=== PATIENT | male | born 1955 | race Caucasian/White ===

== ENCOUNTER → 2017-08-03 09:41 | Day surgery (SDC) | payer SELFPAY ==
[2017-08-01 14:36] VITALS: BP 122/78; BMI 34.4
--- NOTE | 2017-08-01 15:29 | RAD_ITS ---
STUDY: X-RAY CHEST REASON FOR EXAM: Male, 61 years old. Chest pain. TECHNIQUE: Single AP portable view of the chest. COMPARISON: None. FINDINGS: The lungs are clear and expanded. There is no demonstrated pleural abnormality. Normal size heart. Normal mediastinum and alessandra. Normal visualized pulmonary arteries. Normal visualized aortic arch and descending thoracic aorta. There are mild degenerative changes of the visualized thoracic spine. Normal visualized ribs, clavicles, and shoulders. There is no demonstrated abnormality of the visualized soft tissue structures of the upper abdomen. RAD/Chest PA and Lateral IMPRESSION: Normal x-ray examination of the chest. Electronically Signed: Delroy Pack MD at 12:53 EST Tel [phone], Service support ,
[2017-08-01 16:08] LABS: Hematocrit 40.2 % (40-54); Hemoglobin 12.7 g/dl (13.0-16.5); Mean Corp Hgb Conc 31.6 g/gl (32-36); Mean Corpuscular Hgb 26.4 pg (27.0-32.0); Mean Corpuscular Volume 83.6 fL (80-94); Mean Platelet Vol. 9.3 fl (6.2-12.0); Platelet Count 229 K/mm3 (150-450); RBC Distribution Width CV 15.1 % (11.6-14.6); RBC Distribution Width SD 46.4 fl (35.1-43.9); Red Blood Count 4.81 M/mm3 (4.6-6.2); White Blood Count 7.5 K/mm3 (4.4-11.0)
[2017-08-01 16:11] LABS: Scan Indicated on CBC? Y/N NO
[2017-08-01 16:16] LABS: International Normalized Ratio 1.1; Prothrombin Time (Protime)PT. 13.5 SECONDS (11.7-14.9)
[2017-08-01 16:35] LABS: BUN 25 mg/dL (7-18); BUN/Creat Ratio 23.1 RATIO (10-20); Calcium,Total 8.8 mg/dL (8.5-10.1); Chloride 107 mmol/L (98-107); Creatinine, Serum 1.08 mg/dL (0.70-1.30); EST Glomerular Filtration Rate 74 mL/min (>60); Est Glom Filt Rate - Afr Amer 90 mL/min (>60); Glucose 100 mg/dL (70-110); Potassium 4.2 mmol/L (3.5-5.1); Sodium Level 141 mmol/L (136-145)
[2017-08-01 16:36] LABS: Anion Gap 6 (5-15)
[2017-08-02 12:03] VITALS: BMI 34.4
--- NOTE | 2017-08-03 11:28 | CL.D_ITS ---
Patient Name: MANJULA VIERA Study Date: 08/03/2017 Performing: Nathanael Chavez MD Ht: 64.96 inches 165 cm : 1955 Wt: 207.23 lbs 94 kg Age: 61 Gender: male BSA: 2.01 PROCEDURE(S) PERFORMED [id number]-THJ/COR/LV CLINICAL PROFILE AND INDICATIONS INDICATIONS: 61 man with chest pain Stress/Imaging Stress/Image Study Performed: No CAD Presentations: Stable angina. CONCLUSIONS moderateArtery disease involving the left circumflex artery and a previously stented vessel and a tot ally occluded right coronary artery with left to right collaterals. RECOMMENDATIONS Medical therapy DESCRIPTION OF PROCEDURE The patient arrived to the procedure lab. The risks and benefits of the procedure as well as a full d escription of our services here and current unavailability of surgical backup were fully explained to the patient and/or their significant other prior to the catheterization. The Timeout was completed, verifying the correct patient and procedure. The patient's procedural site was prepped and draped in the usual fashion. Local anesthetic was given subcutaneously to right groin region with Lidocaine 2%. Using a modified Seldinger technique, arterial access was obtained via the right femoral artery, a 5 Fr sheath was inserted. Left Coronary Artery selective angiography was performed in multiple views u sing a 5 Fr. JL4 catheter. Right Coronary Artery selective angiography was then performed in multiple views using a 5 Fr. 3DRC (Celso) catheter. Left Ventriculography was performed in NASSAR projection using a 5 Fr. Pigtail catheter. LV to AO pullback pressures were then recorded.The arterial sheath wa s pulled and manual compression applied until hemostasis is achieved. CORONARY ANGIOGRAPHY DOMINANCE: Right Dominant LEFT HEART ASSESSMENT Left Ventricular Ejection Fraction: by LV Gram 55 % Inferior Basal Akinesis Normal Left Ventricular systolic function LEFT MAIN: Mild calcification LEFT ANTERIOR DECENDING ARTERY: Mild luminal irregularities less than 30% CIRCUMFLEX ARTERY: Mild luminal irregularities less than 30% DISTAL CIRC: Moderate luminal irregularities up to 50% OM 1: Proximal - Previously placed stent has an instent 30 % restenosis OM 2: Proximal - Previously placed stent has an instent 30 % restenosis RIGHT CORONARY ARTERY: is occluded COLLATERAL FLOW: Collateral flow from Left to Right COMPLICATIONS No Complications PROCEDURE MEDICATIONS Versed 1 mg IV Fentanyl 50 mcg IV Oxygen: 2 L/min via nasal cannula SUMMARY OF HEMODYNAMIC DATA Time AIR REST ECG 10:16:48 AO 146/67 (94) SA 11:05:25 LV 144/7, 17 11:13:22 LV 145/8, 18 11:13:28 LV 118/5, 16 11:14:39 LVp 129/5, 16 11:14:43 AOp 140/68 (94) 11:14:48 Signed By Nathanael Chavez MD On 08/03/2017 11:27:55 Nathanael Chavez MD
== END ==
PROVIDERS: Family Provider Family Medicine; PCP Family Medicine; Visit Provider Internal Medicine Cardiovascular Disease
DX: I25.118 Atherosclerotic heart disease of native coronary artery with other forms of angina pectoris (principal); I25.2 Old myocardial infarction; I44.1 Atrioventricular block, second degree; I10 Essential (primary) hypertension; E78.00 Pure hypercholesterolemia, unspecified; R06.09 Other forms of dyspnea; Z87.891 Personal history of nicotine dependence; Z98.61 Coronary angioplasty status; Z79.82 Long term (current) use of aspirin; Z79.899 Other long term (current) drug therapy; Z82.49 Family history of ischemic heart disease and other diseases of the circulatory system
CPT/HCPCS: 36415; 71046; 80048; 85027; 85610; 93458; 99152; J7040; Q9967; C1769

== ENCOUNTER 2018-11-21 13:30 | Emergency (ER) | payer OTHER, SELFPAY ==
[2018-11-20 08:41] VITALS: BMI 36.4
[2018-11-21 13:31] VITALS: BP 187/82; PULSE 69; RESP 16; TEMP 36.8; O2SAT 98; BMI 36.6
--- NOTE | 2018-11-21 14:24 | ED.DCSUM_ITS ---
- ER Visit Summary Date of Service: 11/21/18 Chief Complaint: [] Fall right forearm laceration History of Present Illness: The patient is a 63 M [] history of heart disease on Plavix indicates usual state of health inadvertently tripped and fell suffering right forearm laceration just prior to arrival. No head neck chest or abdominal pain no fever no cough no other complaints normal function of the upper extremity after the fall Physical Examination: [] Vital signs within normal range General, no distress resting comfortably HEENT is generally unremarkable The neck is supple no adenopathy Cardiovascular, regular rate and rhythm Lungs, clear bilateral Abdomen, soft nontender Extremities, there is a 2 part curvilinear laceration to the forearm proximally, total length of laceration about 7 cm there is no foreign body or debris appreciated, the elbow functions normal wrist hand function normal neurovascular function normal Neurologic, awake alert answering questions appropriately moving all 4 extremities Test Results: [] Emergency Department Course and Treatment: [] All the above x-rays obtained the laceration underwent sterile prep copious irrigation, standard closure Treatment Plan: [] Explained all of the above the patient the concept of poor healing infection the need to have sutures removed in 7 to 10 days and return for signs of infection he will be given [place] No. 7 tablets to use his rescue medicine if Tylenol is ineffective Disposition: [] Impression: [] 7 cm right forearm laceration This note was generated with [employer] dictation software. It may contain incorrect words, spelling, and punctuation that were not noted in review of the chart prior to signing ED Disposition - Plan for ED Patient: Referrals: Max Orozco [Primary Care Provider] -
[2018-11-21] MEDS: HYDROcodone Bitartrate/Apap 5/325 Tablet PO (14:33)
--- NOTE | 2018-11-21 14:40 | RAD_ITS ---
STUDY: X-RAY - RIGHT RADIUS AND ULNA REASON FOR EXAM: Male, 63 years old. Laceration following a fall. TECHNIQUE: 2 view(s) of the forearm. COMPARISON: None. FINDINGS: Soft tissue laceration overlying the proximal radius.. No radiopaque foreign body is seen. Normal visualized radius. Normal visualized ulna. RAD/Forearm 2 Views IMPRESSION: Soft tissue laceration. No radiopaque foreign body is seen. Electronically Signed: Delroy Pack, at 15:05 EDT , Service support ,
--- NOTE | 2018-11-21 15:49 | ED.DEP ---
ED Disposition - Plan for ED Patient: Instructions: ED Laceration All, ED Laceration Hand Prescriptions: Hydrocodone Bitart/Apap 5-325 [[place] 5MG-325MG] 1 tab PO Q6H PRN PRN 3 Days #10 tab PRN Reason: Pain Referrals: Max Orozco [Primary Care Provider] -
[2018-11-21 16:05] VITALS: BP 149/80; PULSE 94; RESP 49; O2SAT 96
--- NOTE | 2018-11-21 16:06 | ED.RN ---
REVIEWED D/C INSTRUCTIONS, FOLLOW UP CARE, PRESCRIPTION, AND S/S THAT WOULD WARRANT A RETURN TO THE ED WITH PT. PT VERBALIZED AN UNDERSTANDING AND DENIES FURTHER QUESTIONS FOR THIS RN. PT SKIN P/W/D, RESP EVEN AND UNLABORED, PT A&O X 3, NO DISTRESS NOTED. PT AMBULATED OUT OF ED, GAIT STEADY.
== END 2018-11-21 16:08 | disposition home or self-care (01) ==
LOC: ED 14:25
PROVIDERS: Emergency Provider Emergency Medicine; Family Provider Family Medicine; PCP Family Medicine
DX: S51.811A Laceration without foreign body of right forearm, initial encounter (principal); W01.0XXA Fall on same level from slipping, tripping and stumbling without subsequent striking against object, initial encounter; Y93.9 Activity, unspecified; Y92.9 Unspecified place or not applicable; I25.10 Atherosclerotic heart disease of native coronary artery without angina pectoris; I25.2 Old myocardial infarction; Z79.82 Long term (current) use of aspirin; Z79.02 Long term (current) use of antithrombotics/antiplatelets; Z79.899 Other long term (current) drug therapy
CPT/HCPCS: 12002; 73090; 99283; A4216

== ENCOUNTER 2019-05-03 23:51 | Observation (INO) | payer OTHER, SELFPAY ==
[2019-02-14 16:12] VITALS: BMI 36.6
[2019-05-03 23:52] VITALS: BP 155/72; PULSE 66; RESP 17; TEMP 37.2; O2SAT 96; BMI 35.2
--- NOTE | 2019-05-03 23:59 | RAD_ITS ---
STUDY: X-RAY CHEST REASON FOR EXAM: Male, 63 years old. Chest pain TECHNIQUE: Single frontal view of the chest. COMPARISON: August 01, 2017. FINDINGS: The lungs are clear and expanded. There is no demonstrated pleural abnormality. Normal size heart. Normal mediastinum and alessandra. Normal visualized pulmonary arteries. Normal visualized aortic arch and descending thoracic aorta. There are diffuse degenerative changes of the visualized thoracic spine. Normal visualized ribs, clavicles, and shoulders. There is no demonstrated abnormality of the visualized soft tissue structures of the upper abdomen. RAD/Chest 1 View (Portable) IMPRESSION: Degenerative changes, as described above. No demonstrated acute cardiopulmonary process. Electronically Signed: Wallace Blanca, at 0:36 EDT Tel , Service support ,
--- NOTE | 2019-05-03 23:59 | EKG12_ITS ---
Test Reason : CP Blood Pressure : / mmHG Vent. Rate : 060 BPM Atrial Rate : 312 BPM P-R Int : 000 ms QRS Dur : 100 ms QT Int : 440 ms P-R-T Axes : 059 026 044 degrees QTc Int : 440 ms SInus Rhythm Confirmed by CHARLES PLAZA, ELEUTERIO ([id number]), binding dyer SARAH RAO ([id number]) on 05/05/2019 9:58:12 AM Referred By: Jacques Hernandez Confirmed By:ELEUTERIO SOTO MD
[2019-05-04] VITALS (9 sets, daily range): BP systolic 129–146; BP diastolic 62–97; PULSE 50–64; RESP 16–20; TEMP 36.7–37.2; O2SAT 96–98; BMI 31.1
--- NOTE | 2019-05-04 00:01 | ED.VIS.CHEST ---
History of Present Illness Chief Complaint: Chest Pain Informant: Patient Onset: Hours - 2 Activity at onset: Rest Timing: Continuous Quality: Sharp - no tearing sensation; no radation Location: Substernal Current Severity: Mild Maximum Severity: Moderate Worsened By: Breathing. Not Worsened By: Movement of Arm, Movement of Torso Relieved By: NTG - x1, and 3 baby asa Associated Symptoms: Negative for: Nausea, Vomiting, Diaphoresis, Dyspnea, Cough, Fever, Lightheadedness, Acid Reflux, Palpitations Narrative: Patient has a history of cardiac stents with coronary disease. States his other heart attack felt different than this. No recent illnesses. Had a heart cath almost 1 year ago that showed no blockages in need of PCI. PE Risk Factors: Negative for: Recent Travel/Surgery, Recenet Immobilization, Prior DVT or PE, Cancer, OCP + Smoking + >/=35 - Past Medical History (1) Abnormal pulmonary function Status: Chronic (2) Arteriosclerotic heart disease (ASHD) Status: Chronic Comment: PTCA and stent of CFX, OM1, OM2 Aug 2008; PTCA of the RCA intracornary stent [address] [facility]: 11/2009; 08/2008; 03/2012, 08/2017 (3) Essential (primary) hypertension Status: Chronic (4) History of coronary artery stent placement Status: Chronic Comment: PTCA and stent of CFX, OM1, OM2 Aug 2008; PTCA of the RCA intracornary stent 1998 (5) Hyperlipidemia Status: Chronic Past Medical History - Allergies and Home Meds Allergies/Adverse Reactions: Allergies Alfknnk-Wrz-Mag Reductase Inhibitor Allergy (Verified 05/04/19 00:05) all statins except crestor caused itching Primary Care Physician: Max Orozco [Primary Care Provider] - Doctors: [facility]-cardiology Lives: With Family Smoking Status: Former smoker Drugs: None Review of Systems General: Denies: Chills, Fever, Sweats Eyes: Denies: Visual changes - bilaterally, Diplopia ENT: Denies: Rhinorrhea, Sore throat Cardiovascular: Reports: Chest pain. Denies: Palpitations Respiratory: Denies: Dyspnea, Cough, Dyspnea on exertion Gastrointestinal: Denies: Abdominal pain, Nausea, Vomiting, Diarrhea, Melena, Hematochezia Genitourinary: Denies: Dysuria, Hematuria, Frequency Musculoskeletal: Denies: Back pain, Swelling, Extremity Pain Skin: Denies: Rash, Wounds Neurological: Denies: Headache, Weakness, Numbness Physical Exam Vital Signs/Narrative: Vital Signs Temp Pulse Resp BP Pulse Ox 05/03/19 23:52 98.9 F 66 17 155/72 H 96 Inital Vital Signs reviewed: Yes General: Well nourished, Well developed, No Acute Distress Head: Normocephalic, Atraumatic Eyes: Perrl, EOMI ENT: Moist mucous membranes, No rhinorrhea Neck: Supple, Nontender, No JVD Cardiovascular: Regular rate, Regular rhythm, No murmurs, - - Equal bilateral 2+/4 radial pulses. Negative for: Tachycardia Respiratory: No distress, CTA bilaterally, Chest nontender Abdomen: Soft, Nontender, Nondistended, Normal bowel sounds Back: Nontender, Normal Inspection Extremities: Nontender, Edema - Trace bilateral shins, symmetric. Negative for: Calf Tenderness Skin: Normal color, No rash Neurological: Alert, Oriented x3, Cranial nerves II-XII grossly intact, Normal Strength, Normal Sensation Psychological: Normal affect, Normal Mood Diagnostic/Tx/Re-eval Impressions Chest X-Ray 05/03/19 23:59 IMPRESSION: Degenerative changes, as described above. No demonstrated acute cardiopulmonary process. Electronically Signed: Wallace Blanca, at 0:36 EDT Tel , Service support , 05/03/19 23:59 Chest 1 View (Portable) [RAD] Stat Laboratory Results 05/04/19 05/04/19 05/04/19 00:06 00:06 00:06 WBC 7.3 RBC 4.67 Hgb 12.6 L Hct 40.1 MCV 85.9 MCH 27.0 MCHC 31.4 L RDW Std Deviation 43.8 RDW Coeff of Dorene 14.1 Plt Count 247 MPV 8.3 Immature Gran % (Auto) 0.700 Neut % (Auto) 44.7 L Lymph % (Auto) 32.5 [place] % (Auto) 15.4 H Eos % (Auto) 6.1 H Baso % (Auto) 0.6 Absolute Neuts (auto) 3.3 Absolute Lymphs (auto) 2.36 Nucleated RBC % 0 D-Dimer Quant (PE/DVT) 0.61 H* Sodium 139 Potassium 3.3 L Chloride 106 Carbon Dioxide 27.0 Anion Gap 6 BUN 18 Creatinine 1.13 Estim Creat Clear Calc 58.96 Est GFR (MDRD) Af Amer 84 Est GFR (MDRD) Non-Af 70 BUN/Creatinine Ratio 15.9 Glucose 107 H Calcium 8.7 Troponin I < 0.015 - Rhythm Strip Rhythm Strip: Sinus Rhythm Rate: 60 Ectopy: None - EKG Initial EKG Interpretation: Sinus Rhythm, No Acute Injury Pattern, - - nml axis Treatment: NTG SL Repeat Eval: 07/11 TIERRA Risk: Age >/= 65, H/O CAD, ASA within 7 days Score: 3 - Medical Decision Making Enzymes returned negative, his EKG shows a sinus rhythm with no acute injury pattern. He feels continuously better with nitroglycerin. He is high risk. Plan is for inpatient observation for further risk stratification and work-up. Patient is comfortable with this plan and clinically and hemodynamically stable on reexamination. His d-dimer returned abnormal, but at 0.61 when corrected for age, is low enough to rule out pulmonary embolus without further work-up. Nitroglycerin paste was placed on his chest. ED Disposition - Plan for ED Patient: Disposition: Acute Care Hospital [facility] Diagnosis: Chest pain, unspecified, Arteriosclerotic heart disease (ASHD) Referrals: Max Orozco [Primary Care Provider] -
[2019-05-04] MEDS: Nitroglycerin SL (ED/IMG/CATH) 0.4 MG TABLET SUBLINGUAL (00:09)
[2019-05-04 00:26] LABS: Absolute Lymphocyte Count 2.36 X10^3/uL (0.83-4.51); Absolute Neutrophil Count 3.3 X10^3/uL (2.0-7.7); Basophil# 0.04 X10^3/uL; Basophil% 0.6 % (0-1); Eosinophil# 0.44 X10^3/uL; Eosinophils% 6.1 % (0-5); Hematocrit 40.1 % (40-54); Hemoglobin 12.6 g/dL (13.0-16.5); Lymphocyte # 2.36 X10^3/ul (4.0); Lymphocyte % 32.5 % (19-41); Mean Corp Hgb Conc 31.4 g/dL (32-36); Mean Corpuscular Volume 85.9 fL (80-94); Mean Platelet Vol. 8.3 fl (6.2-12.0); Monocyte# 1.12 X10^3/uL; Monocyte% 15.4 % (0-10); NRBC Flagged by Analyzer 0 % (0-5); Neutrophil # 3.25 X10^3/uL (2.7-7.7); Neutrophil % 44.7 % (47-70); Platelet Count 247 K/mm3 (150-450); RBC Distribution Width CV 14.1 % (11.6-14.6); RBC Distribution Width SD 43.8 fl (35.1-43.9); Red Blood Count 4.67 M/mm3 (4.6-6.2); White Blood Count 7.3 K/mm3 (4.4-11.0)
[2019-05-04 00:53] LABS: Anion Gap 6 (5-15); BUN 18 mg/dL (7-18); BUN/Creat Ratio 15.9 RATIO (10-20); Calcium,Total 8.7 mg/dL (8.5-10.1); Chloride 106 mmol/L (98-107); Creatinine, Serum 1.13 mg/dL (0.70-1.30); EST Glomerular Filtration Rate 70 mL/min (>60); Est Glom Filt Rate - Afr Amer 84 mL/min (>60); Estimated Creatinine Clearance 58.96 ml/min; Glucose 107 mg/dL (74-106); Potassium 3.3 mmol/L (3.5-5.1); Sodium Level 139 mmol/L (136-145)
[2019-05-04 01:10] LABS: D-Dimer Quantitative (DVT/PE) 0.61 FEU/ug/m (0.27-0.49)
--- NOTE | 2019-05-04 01:13 | ED.RN ---
TOOK D-DIMER OF 0.61. RN AND AWARE.
--- NOTE | 2019-05-04 01:33 | PCM.HP.STD ---
Problem List (1) Chest pain, unspecified Status: Acute (2) Arteriosclerotic heart disease (ASHD) Status: Chronic Comment: PTCA and stent of CFX, OM1, OM2 Aug 2008; PTCA of the RCA intracornary stent 1998 [facility]: 11/2009; 08/2008; 03/2012, 08/2017 (3) Abnormal pulmonary function Status: Chronic (4) Essential (primary) hypertension Status: Chronic (5) History of left heart catheterization Status: Chronic Comment: [facility]: 11/2009; 08/2008; 03/2012 (6) History of coronary artery stent placement Status: Chronic Comment: PTCA and stent of CFX, OM1, OM2 Aug 2008; PTCA of the RCA intracornary stent 1998 (7) Hyperlipidemia Status: Chronic Qualifiers: Hyperlipidemia type: pure hypercholesterolemia Qualified Code(s): E78.00 - Pure hypercholesterolemia, unspecified; E78.0 - Pure hypercholesterolemia (8) History of non-ST elevation myocardial infarction (NSTEMI) Status: Chronic (9) Atherosclerotic heart disease of [place] coronary artery with other forms of angina pectoris Status: Chronic Comment: PTCA and stent of CFX, OM1, OM2 Aug 2008; PTCA of the RCA intracornary stent 1998 [facility]: 11/2009; 08/2008; 03/2012, 08/2017 History of Present Illness Date of Admission: 05/04/19 Chief Complaint: chest pain The patient is a 63 year old M with a significant history of hypertension; hyperlipidemia; and CAD status post stent placement in 1998 and also in 2008 who presented to the emergency department with substernal chest pain that radiated to his left chest. Unlike his previous heart attacks where his chest pain appeared to be heaviness/ach this time around he describes chest pain as sharp. He rated his chest pain as 2-3 on a scale of 1-10. His chest pain began gradually while he was a passenger in a vehicle. Lying down made the chest pain worse. He denied any ameliorating factors. He took 3 baby aspirin when his chest pain began. Also he took Plavix; had aerosol treatment and also took an nitroglycerin. He typically takes all his medicine as ordered. However on Saturdays and Sundays he does not take his medication. So on the day of presentation which was Sunday he had not taken his medication in the morning. However he took his medication later in the day when the chest pain began. At the emergency department he was given nitroglycerin sublingual. He reported that nitroglycerin only gave him a headache without any change in his chest pain. Later he refused nitroglycerin paste. At the time of evaluation his pain had reduced from 1 to none. However he did not attributes the improvement of the chest pain to the nitroglycerin. He denies any nausea; vomiting or diaphoresis. He reported that he had his first heart attack at age 42. His second heart attack was at age 52. And at age 54 HE had another heart attack. He reported for his first 2 heart attackS he had a stent placed. However for his third heart attack he does not remember what was done but but he was hospitalized for couple of days. He will think that he has a total of 4 coronary stents. He reports an unremarkable cardiac cath a year ago. Past Medical History Past Medical History (Chronic Problems): Chronic Problems (Last Reviewed 05/04/19 @ 03:31 by Jacques Hernandez MD) Arteriosclerotic heart disease (ASHD) (Chronic) PTCA and stent of CFX, OM1, OM2 Aug 2008; PTCA of the RCA intracornary stent 1998 [facility]: 11/2009; 08/2008; 03/2012, 08/2017 Abnormal pulmonary function (Chronic) Essential (primary) hypertension (Chronic) History of left heart catheterization (Chronic 08/2017) [facility]: 11/2009; 08/2008; 03/2012 History of coronary artery stent placement (Chronic) PTCA and stent of CFX, OM1, OM2 Aug 2008; PTCA of the RCA intracornary stent 1998 Hyperlipidemia (Chronic) History of non-ST elevation myocardial infarction (NSTEMI) (Chronic) Atherosclerotic heart disease of [place] coronary artery with other forms of angina pectoris (Chronic) PTCA and stent of CFX, OM1, OM2 Aug 2008; PTCA of the RCA intracornary stent 1998 [facility]: 11/2009; 08/2008; 03/2012, 08/2017 Medical History: Medical History (Last Reviewed 05/04/19 @ 03:31 by Jacques Hernandez MD) Arteriosclerotic heart disease (ASHD) (Chronic) I25.10 PTCA and stent of CFX, OM1, OM2 Aug 2008; PTCA of the RCA intracornary stent 1998 [facility]: 11/2009; 08/2008; 03/2012, 08/2017 Essential (primary) hypertension (Chronic) I10 Old non-ST elevation myocardial infarction (NSTEMI) (Resolved) I25.2 Hyperlipidemia (Chronic) E78.5 Atrioventricular block, Mobitz type 1, Wenckebach (Inactive) I44.1 History of non-ST elevation myocardial infarction (NSTEMI) (Chronic) I25.2 Atherosclerotic heart disease of [place] coronary artery with other forms of angina pectoris (Chronic) I25.118 PTCA and stent of CFX, OM1, OM2 Aug 2008; PTCA of the RCA intracornary stent 1998 [facility]: 11/2009; 08/2008; 03/2012, 08/2017 Lightheadedness R42 Shortness of breath R06.02 Allergies Uulmeem-Nfi-Xsj Reductase Inhibitor Allergy (Verified 05/04/19 00:05) all statins except crestor caused itching Home Medications: Ambulatory Orders Medication Instructions Recorded aspirin 81 mg tablet,delayed 81 mg PO QDAY 06/08/17 release nitroglycerin 0.4 mg sublingual 0.4 mg SUBLINGUAL Q5-15M PRN 06/08/17 tablet clopidogrel 75 mg tablet 75 mg PO QDAY #90 tab 08/23/18 rosuvastatin 20 mg tablet 20 mg PO QDAY #90 tab 08/23/18 albuterol sulfate 2.5 mg/3 mL 2.5 mg INHALATION Q4H PRN 11/20/18 (0.083 %) solution for nebulization Ranolazine [Ranexa] 1,000 mg PO BID 05/04/19 Surgical History: Surgical History (Last Reviewed 05/04/19 @ 03:31 by Jacques Hernandez MD) History of left heart catheterization (Chronic) Onset Date: 08/2017 Z98.890 [facility]: 11/2009; 08/2008; 03/2012 History of coronary artery stent placement (Chronic) Z95.5 PTCA and stent of CFX, OM1, OM2 Aug 2008; PTCA of the RCA intracornary stent 1998 History of appendectomy Z98.890, Z90.49 Lives: With Family Smoking Status: Former smoker Alcohol: Occasional Drugs: None Review of Systems Constitutional: Denies: Chills, Fever, Weight Change HEENT: Denies: Head Aches, Sinus Congestion, Sinus Drainage Cardiovascular: Reports: Chest Pain. Denies: Palpitations Respiratory: Denies: Cough, Shortness of breath at rest, Sputum production Gastrointestinal: Denies: Abdominal Pain, Nausea, Vomiting Genitourinary: Denies: Dysuria Musculoskeletal: Denies: Joint Pain, Joint Tenderness Skin: Denies: Rash, Wounds Neurological: Denies: Numbness, Tingling, Focal weakness Psychiatric: Denies: Anxiety, Depression, Homicidal Ideations, Suicidal Ideations Hematologic/ Lymphatic: Denies: Easy Bruising, Easy Bleeding VTE Information - Inpt Only VTE Present on Admission: No VTE Mechan Device Prophylaxis: None VTE Pharm Prophylaxis ordered?: Yes Patient Problems: Active and Suspected Problems (Last Reviewed 05/04/19 @ 03:31 by Jacques Hernandez MD) Chest pain, unspecified (Acute) - Physical Exam Vitals/I&O's: Vital Signs Temp Pulse Resp BP Pulse Ox 98.9 F 64 18 129/62 H 98 05/03/19 23:52 05/04/19 00:17 05/04/19 00:17 05/04/19 00:17 05/04/19 00:17 Oxygen Flow Rate (L/min) 2 Oxygen Delivery Method Nasal Cannula Weight: 96 kg Body Mass Index (BMI) 35.2 Intake and Output for Last 24 Hours 05/02/19 05/03/19 05/04/19 23:59 23:59 22:59 Intake Total 500 / 500 Balance 500 / 500 General: Alert, Oriented x3, Cooperative HEENT: Atraumatic, PERRLA, EOMI, Normocephalic Neck: Supple, No JVD, Negative Carotid Bruits Lungs: Clear to auscultation, Normal air movement Cardiovascular: Normal S1, Normal S2, No murmurs, Bradycardic Abdomen: Bowel Sounds Present, Soft, Non Tender Extremities: No edema, Capillary Refill Less than 3 Seconds Skin: No rashes, No breakdown Musculoskeletal: No Tenderness to Palpation of Joints or Extremities Neurological: Cranial nerves II-XII grossly intact Psych/Mental Status: Normal Affect, Appropriate Laboratory Results 05/04/19 00:06: WBC 7.3, RBC 4.67, Hgb 12.6 L, Hct 40.1, MCV 85.9, MCH 27.0, MCHC 31.4 L, RDW Std Deviation 43.8, RDW Coeff of Dorene 14.1, Plt Count 247, MPV 8.3, Immature Gran % (Auto) 0.700, Neut % (Auto) 44.7 L, Lymph % (Auto) 32.5, [place] % (Auto) 15.4 H, Eos % (Auto) 6.1 H, Baso % (Auto) 0.6, Absolute Neuts (auto) 3.3, Absolute Lymphs (auto) 2.36, Nucleated RBC % 0 05/04/19 00:06: Sodium 139, Potassium 3.3 L, Chloride 106, Carbon Dioxide 27.0, Anion Gap 6, BUN 18, Creatinine 1.13, Estim Creat Clear Calc 58.96, Est GFR (MDRD) Af Amer 84, Est GFR (MDRD) Non-Af 70, BUN/Creatinine Ratio 15.9, Glucose 107 H, Calcium 8.7, Troponin I < 0.015 05/04/19 00:06: D-Dimer Quant (PE/DVT) 0.61 H* Current Medications Nitroglycerin (Nitrostat) 0.4 mg SUBLINGUAL Q5M PRN PRN Reason: Chest pain Last Admin: 05/04/19 00:09 Dose: 0.4 mg Documented by: Assessment/Plan All Active Problems (Last Reviewed 05/04/19 @ 03:31 by Jacques Hernandez MD) Chest pain, unspecified (Acute) Old non-ST elevation myocardial infarction (NSTEMI) (Resolved) The patient is a 63 year old M with a significant history of hypertension; hyperlipidemia; and CAD status post stent placement in 1998 and also in 2008 who presented to the emergency department with substernal chest pain that radiated to his left chest. Chest pain Place on a monitored bed at PCU CXR independently reviewed confirms no acute cardiopulmonary process. EKG independently reviewed confirms sinus rhythm Patient took 3 baby aspirin before presentation to the emergency department. ASA 81 mg p.o. daily Morphine as needed for pain Ranexa and Plavix continued Discussed and recommended to patient that stress test can be on 05/05/2019 or he can be considered for a cardiac cath. However he reported that he had cardiac cath a year ago that was unremarkable. Also, he can not till 05/05/2029 for a stress test. He agrees to stay in the hospital for serial troponin. And if his serial cardiac enzymes is negative and if his chest pain resolves he wants to be discharged on 05/04/2019 and follow-up with his obstetrician/gynecologist Dr. Chavez, on outpatient basis. Serial cardiac enzymes ordered Stat EKG as needed for chest pain HTN Noted that patient has no blood pressure on his home med list. He has a history of [place] type I. Consider lisinopril or amlodipine.. Will trend blood pressure for now. Hyperlipidemia Rosuvastatin continued DVT prophylaxis Subcutaneous Lovenox ordered. Code Visit OBSV E&M: [id number] Initial observation care L3
--- NOTE | 2019-05-04 01:56 | EKG12_ITS ---
Test Reason : CP ADMISSION Blood Pressure : / mmHG Vent. Rate : 055 BPM Atrial Rate : 055 BPM P-R Int : 192 ms QRS Dur : 094 ms QT Int : 464 ms P-R-T Axes : 066 019 039 degrees QTc Int : 443 ms Sinus bradycardia Otherwise normal ECG Confirmed by CHARLES PLAZA, ELEUTERIO ([id number]), advertising editor SARAH RAO ([id number]) on 05/07/2019 11:19:41 AM Referred By: Jacques Hernandez Confirmed By:ELEUTERIO SOTO MD
[2019-05-04 03:13] LABS: Magnesium 2.1 mg/dL (1.6-2.6)
[2019-05-04] MEDS: Aspirin E.C. 81 MG Tablet PO (08:49)
[2019-05-04] MEDS: Enoxaparin 40 MG/0.4 ML Syringe SC (08:49)
[2019-05-04] MEDS: Clopidogrel Bisulfate 75 MG Tablet PO (08:50)
[2019-05-04] MEDS: Ranolazine 500 MG Tablet 1000 MG PO (08:50)
--- NOTE | 2019-05-04 10:13 | DCINST_ITS ---
- Discharge Diagnoses Current Active Problems: Current Active and Chronic Problems (Last Reviewed 05/04/19 @ 03:31 by Jacques Hernandez MD) Chest pain, unspecified (Acute) Arteriosclerotic heart disease (ASHD) (Chronic) PTCA and stent of CFX, OM1, OM2 Aug 2008; PTCA of the RCA intracornary stent 1998 [facility]: 11/2009; 08/2008; 03/2012, 08/2017 You will use the following diet at home:: Cardiac Your food should be the consistency of: Regular Your liquids should be the consistency of: Regular/Thin Discharge Activity: Return to Normal Activity Allergies/Adverse Reactions: Allergies Euiifgj-Rad-Uxh Reductase Inhibitor Allergy (Verified 05/04/19 00:05) all statins except crestor caused itching Medications to take at Discharge aspirin 81 mg tablet,delayed release 81 mg PO QDAY 06/08/17 nitroglycerin 0.4 mg sublingual tablet 0.4 mg SUBLINGUAL Q5-15M PRN 06/08/17 clopidogrel 75 mg tablet 75 mg PO QDAY #90 tab 08/23/18 rosuvastatin 20 mg tablet 20 mg PO QDAY #90 tab 08/23/18 albuterol sulfate 2.5 mg/3 mL (0.083 %) solution for nebulization 2.5 mg INHALATION Q4H PRN 11/20/18 Ranolazine [Ranexa] 1,000 mg PO BID 05/04/19 Primary Care Physician: Max Orozco [Primary Care Provider] - Please follow up with your Primary Care Physician in: 1-2 weeks Test Results: Test results from this visit will be discussed in further detail at your follow- up appointment, if applicable. Please Follow Up With: Nathanael Chavez MD When: 1-2 weeks Proposed Discharge Date: 05/04/19
--- NOTE | 2019-05-04 13:16 | PCM.DC.SUM ---
<Isaiah Choudhary - Last Filed: 05/04/19 13:16> Discharge Date and Diagnosis Date of Admission: 05/04/19 Date of Discharge: 05/04/19 - Primary Discharge Diagnosis Chest pain - musculoskeletal Hx CAD with prior stent HTN HLD obesity - Secondary Discharge Diagnosis Chronic Problems (Last Reviewed 05/04/19 @ 03:31 by Jacques Hernandez MD) Arteriosclerotic heart disease (ASHD) (Chronic) PTCA and stent of CFX, OM1, OM2 Aug 2008; PTCA of the RCA intracornary stent 1998 [facility]: 11/2009; 08/2008; 03/2012, 08/2017 Abnormal pulmonary function (Chronic) Essential (primary) hypertension (Chronic) History of left heart catheterization (Chronic 08/2017) C: 11/2009; 08/2008; 03/2012 History of coronary artery stent placement (Chronic) PTCA and stent of CFX, OM1, OM2 Aug 2008; PTCA of the RCA intracornary stent 1998 Hyperlipidemia (Chronic) History of non-ST elevation myocardial infarction (NSTEMI) (Chronic) 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: 11/2009; 08/2008; 03/2012, 08/2017 Hospital Course and Treatment Imaging Results: RAD/Chest 1 View (Portable) IMPRESSION: Degenerative changes, as described above. No demonstrated acute cardiopulmonary process. Operations: None Procedures: None Summary of Care Provided: Hospital course: The patient is a 63 year old M with pmhx of CAD with prior stent, HTN, HLD who presented to the ER with chest pain. This began suddenly when he was riding as a passenger. He described it as a midsternal sharp pain that radiated to the left side of the chest. He had no SOB, dizziness, LH, nausea, vomiting. He came to the ER and had negative troponin negative CXR and negative EKG. He did not want to stay until Sunday for a stress test. He was kept overnight on tele - no events on tele. He had negative trop x 3. He had no further chest pain the following day. He wanted discharge home. He was advised to return to the ER if he had any return of or change in his chest pain. He was also advised to contact his instruction dean and PCP regarding arranging for an outpatient stress test. He was discharged home in stable condition. He will need follow up with his PCP in 1-[address] Chavez in the office, ideally in the next 1-2 weeks. His pain was atypical and felt most likely to be musculeskeletal. This patient was seen by Isaiah Choudhary PA-C under the supervision of Doctor Elder. [] - Physical Exam Vitals/I&O's: Vital Signs Temp Pulse Resp BP Pulse Ox 98.0 F 55 L 16 129/68 H 96 05/04/19 08:21 05/04/19 08:21 05/04/19 08:21 05/04/19 08:21 05/04/19 08:21 Oxygen Flow Rate (L/min) 2 Oxygen Delivery Method Room Air Weight: 198 lb 10.184 oz Body Mass Index (BMI) 31.1 Intake and Output for Last 24 Hours 05/02/19 05/03/19 05/04/19 23:59 23:59 22:59 Intake Total 750 / 750 Balance 750 / 750 General: Alert, Oriented x3, Cooperative HEENT: Atraumatic, PERRLA, EOMI, Normocephalic Neck: Supple, No JVD, Negative Carotid Bruits Lungs: Clear to auscultation, Normal air movement Cardiovascular: Regular rate, Murmur - 2/6 systolic murmur @ LSB Abdomen: Bowel Sounds Present, Soft, Non Tender Extremities: No edema, Capillary Refill Less than 3 Seconds Skin: No rashes, No breakdown Musculoskeletal: No Tenderness to Palpation of Joints or Extremities Neurological: Cranial nerves II-XII grossly intact Psych/Mental Status: Normal Affect, Appropriate, Alert and oriented to time, place, person, mood and affect Laboratory Results 05/04/19 00:06: WBC 7.3, RBC 4.67, Hgb 12.6 L, Hct 40.1, MCV 85.9, MCH 27.0, MCHC 31.4 L, RDW Std Deviation 43.8, RDW Coeff of Dorene 14.1, Plt Count 247, MPV 8.3, Immature Gran % (Auto) 0.700, Neut % (Auto) 44.7 L, Lymph % (Auto) 32.5, Harper % (Auto) 15.4 H, Eos % (Auto) 6.1 H, Baso % (Auto) 0.6, Absolute Neuts (auto) 3.3, Absolute Lymphs (auto) 2.36, Nucleated RBC % 0 05/04/19 00:06: Sodium 139, Potassium 3.3 L, Chloride 106, Carbon Dioxide 27.0, Anion Gap 6, BUN 18, Creatinine 1.13, Estim Creat Clear Calc 58.96, Est GFR (MDRD) Af Amer 84, Est GFR (MDRD) Non-Af 70, BUN/Creatinine Ratio 15.9, Glucose 107 H, Calcium 8.7, Troponin I < 0.015 05/04/19 00:06: D-Dimer Quant (PE/DVT) 0.61 H* 05/04/19 00:06: Magnesium 2.1 05/04/19 03:43: Troponin I < 0.015 05/04/19 05:46: Troponin I < 0.015 Discharge Diet: Low fat/ Low Cholesterol, 2000 mg Sodium Diet Discharge Activity: Return to Normal Activity Home Medications: Medications to take at Discharge aspirin 81 mg tablet,delayed release 81 mg PO QDAY 06/08/17 nitroglycerin 0.4 mg sublingual tablet 0.4 mg SUBLINGUAL Q5-15M PRN 06/08/17 clopidogrel 75 mg tablet 75 mg PO QDAY #90 tab 08/23/18 rosuvastatin 20 mg tablet 20 mg PO QDAY #90 tab 08/23/18 albuterol sulfate 2.5 mg/3 mL (0.083 %) solution for nebulization 2.5 mg INHALATION Q4H PRN 11/20/18 Ranolazine [Ranexa] 1,000 mg PO BID 05/04/19 Primary Care Physician: Max Orozco [Primary Care Provider] - Please follow up with your Primary Care Physician in: 1-2 weeks Please Follow Up With: Nathanael Chavez MD When: 1-2 weeks Disposition: Home Minutes spent on discharge:: 35 Patient Condition:: Stable Medical Necessity - Tobacco Use Smoking Status: Former smoker Meaningful Use Info Meaningful Use Diagnoses (Choose all that apply): None applicable <Nik Friedman - Last Filed: 05/04/19 13:31> Discharge Date and Diagnosis - Secondary Discharge Diagnosis Chronic Problems (Last Reviewed 05/04/19 @ 03:31 by Jacques Hernandez MD) Arteriosclerotic heart disease (ASHD) (Chronic) PTCA and stent of CFX, OM1, OM2 Aug 2008; PTCA of the RCA intracornary stent 1998 [facility]: 11/2009; 08/2008; 03/2012, 08/2017 Abnormal pulmonary function (Chronic) Essential (primary) hypertension (Chronic) History of left heart catheterization (Chronic 08/2017) 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: 11/2009; 08/2008; 03/2012, 08/2017 Hospital Course and Treatment Procedures: EKG Summary of Care Provided: Hospitalist note: Discharge summary above reviewed and I concur with the above discharge plan. Patient was admitted for chest pain for evaluation. He did have a history of CAD status post stents. His EKG showed no evidence of acute ischemic changes. Troponin was negative x3. His vital signs were stable. Routine blood work was unremarkable. D-dimer was 0.61 but it was normal for adjusted age. Chest x-ray showed no acute findings. Patient did not want to stay for stress test tomorrow morning. I explained to him in details that ideally we should do a nuclear stress test to rule out coronary artery disease. I informed the patient that because of his capacity of CAD and stents, he should get a stress test done. Patient wanted to be discharged home and he mentioned he would like a stress test done as outpatient. I explained to the patient that he must return back to the ED if he developed this chest pain again, started having any chest pain, shortness of breath, lightheaded or dizzy and he agreed to this approach. Patient was instructed to call his instruction dean office tomorrow to set up a nuclear stress test as outpatient. Patient discharged home in a stable medical condition, discharged on his previous home medications without any changes, plan to have the patient call his instruction dean office tomorrow to schedule a nuclear stress test as outpatient, recommended to follow-up with PCP in 1 to 2 weeks and follow-up with cardiology in 2 weeks. - Physical Exam General: Alert, Oriented x3, Cooperative, No apparent distress. HEENT: Atraumatic, PERRLA, EOMI. Neck: Supple, No JVD, Negative Carotid Bruits, Trachea Midline, Thyroid Normal. Lungs: Clear to auscultation, Normal air movement, No rhonchi, No wheeze, No rales. Cardiovascular: Regular rate, Regular Rhythm, Normal S1, Normal S2, PMI Normal. Abdomen: Bowel Sounds Present, Soft, Non Tender, Non-Distended, No Hepato-splenomegaly. Extremities: No clubbing, No cyanosis, No edema Skin: No rashes, No breakdown Neurological: Cranial nerves are intact, neuro grossly intact Vital Signs are stable. This note was generated with Dialog[employer] dictation software. It may contain incorrect words, spelling, and punctuation that were not noted in checking the note before signing. - Physical Exam Vitals/I&O's: Vital Signs Temp Pulse Resp BP Pulse Ox 98.0 F 55 L 16 129/68 H 96 05/04/19 08:21 05/04/19 08:21 05/04/19 08:21 05/04/19 08:21 05/04/19 08:21 Oxygen Flow Rate (L/min) 2 Oxygen Delivery Method Room Air Weight: 198 lb 10.184 oz Body Mass Index (BMI) 31.1 Intake and Output for Last 24 Hours 05/02/19 05/03/19 05/04/19 23:59 23:59 22:59 Intake Total 750 / 750 Balance 750 / 750 Laboratory Results 05/04/19 00:06: WBC 7.3, RBC 4.67, Hgb 12.6 L, Hct 40.1, MCV 85.9, MCH 27.0, MCHC 31.4 L, RDW Std Deviation 43.8, RDW Coeff of Dorene 14.1, Plt Count 247, MPV 8.3, Immature Gran % (Auto) 0.700, Neut % (Auto) 44.7 L, Lymph % (Auto) 32.5, Harper % (Auto) 15.4 H, Eos % (Auto) 6.1 H, Baso % (Auto) 0.6, Absolute Neuts (auto) 3.3, Absolute Lymphs (auto) 2.36, Nucleated RBC % 0 05/04/19 00:06: Sodium 139, Potassium 3.3 L, Chloride 106, Carbon Dioxide 27.0, Anion Gap 6, BUN 18, Creatinine 1.13, Estim Creat Clear Calc 58.96, Est GFR (MDRD) Af Amer 84, Est GFR (MDRD) Non-Af 70, BUN/Creatinine Ratio 15.9, Glucose 107 H, Calcium 8.7, Troponin I < 0.015 05/04/19 00:06: D-Dimer Quant (PE/DVT) 0.61 H* 05/04/19 00:06: Magnesium 2.1 05/04/19 03:43: Troponin I < 0.015 05/04/19 05:46: Troponin I < 0.015 Disposition: Home Minutes spent on discharge:: 26 Patient Condition:: Stable Meaningful Use Info Meaningful Use Diagnoses (Choose all that apply): None applicable Code Visit OBSV E&M: 06766 Observ/hosp same date L2
== END 2019-05-04 10:13 | disposition home or self-care (01) ==
LOC: ED 05-04 01:42 → PCU 05-04 02:40
PROVIDERS: Admitting Provider Hospitalist; Emergency Provider Emergency Medicine; Family Provider Family Medicine; PCP Family Medicine; Referring Provider Hospitalist; Visit Provider Hospitalist
DX: R07.89 Other chest pain (principal); I25.10 Atherosclerotic heart disease of native coronary artery without angina pectoris; I10 Essential (primary) hypertension; E78.5 Hyperlipidemia, unspecified; E66.9 Obesity, unspecified; Z68.31 Body mass index [BMI] 31.0-31.9, adult; Z71.3 Dietary counseling and surveillance; Z95.5 Presence of coronary angioplasty implant and graft; Z79.899 Other long term (current) drug therapy; Z79.02 Long term (current) use of antithrombotics/antiplatelets; Z79.82 Long term (current) use of aspirin; I25.2 Old myocardial infarction; Z87.891 Personal history of nicotine dependence
CPT/HCPCS: 36415; 71045; 80048; 83735; 84484; 85025; 85379; 93005; 96360; 96372; 99218; 99285; J7030; A4216; G0378

== ENCOUNTER → 2020-02-19 16:53 | Outpatient (CLI) | payer OTHER, SELFPAY ==
[2020-02-19 13:58] VITALS: BMI 35.7
[2020-02-19 17:56] LABS: AST(SGOT) 24 U/L (15-37); Alanine Aminotransfer ALT/SGPT 35 U/L (16-61); Albumin, Serum 3.8 g/dL (3.2-5.0); Alkaline Phosphatase 103 U/L (45-117); Bilirubin, Direct 0.28 mg/dL (0.00-0.30); Cholesterol 144 mg/dL (200); High Density Lipoprotein 66 mg/dL; Protein, Total 6.8 g/dL (6.4-8.2); Triglycerides 53 mg/dL; Very Low Density Lipoprotein 11 mg/dL (5-40)
== END ==
PROVIDERS: PCP Family Medicine; Referring Provider Internal Medicine Cardiovascular Disease; Visit Provider Internal Medicine Cardiovascular Disease
DX: E78.5 Hyperlipidemia, unspecified (principal); I10 Essential (primary) hypertension; I25.2 Old myocardial infarction
CPT/HCPCS: 36415; 80061; 80076

== ENCOUNTER → 2023-09-14 | Outpatient (CLI) | payer BC, SELFPAY ==
[2023-09-14 16:57] LABS: Absolute Lymphocyte Count 1.89 X10^3/uL (0.83-4.51); Absolute Neutrophil Count 4.8 X10^3/uL (2.0-7.7); Basophil# 0.07 X10^3/uL; Basophil% 0.9 % (0-1); Eosinophil# 0.39 X10^3/uL; Eosinophils% 4.9 % (0-5); Hematocrit 44.1 % (40-54); Hemoglobin 14.4 g/dL (13.0-16.5); Lymphocyte # 1.89 X10^3/ul (0.83-4.51); Lymphocyte % 23.5 % (19-41); Mean Corp Hgb Conc 32.7 g/dL (32-36); Mean Corpuscular Hgb 28.9 pg (27.0-32.0); Mean Corpuscular Volume 88.4 fL (80-94); Mean Platelet Vol. 9.4 fl (6.2-12.0); Monocyte# 0.88 X10^3/uL; NRBC Flagged by Analyzer 0 % (0-5); Neutrophil # 4.76 X10^3/uL (2.7-7.7); Neutrophil % 59.2 % (47-70); Platelet Count 237 K/mm3 (150-450); RBC Distribution Width CV 12.6 % (11.6-14.6); RBC Distribution Width SD 40.4 fl (35.1-43.9); Red Blood Count 4.99 M/mm3 (4.6-6.2)
[2023-09-14 17:15] LABS: Hemoglobin A1c 5.7 % (3.8-5.6)
[2023-09-14 17:16] LABS: Anion Gap 4 (5-15); BUN 21 mg/dL (7-18); Calcium,Total 8.9 mg/dL (8.5-10.1); Chloride 112 mmol/L (98-107); Creatinine, Serum 0.95 mg/dL (0.70-1.30); EST Glomerular Filtration Rate 84 mL/min (>60); Est Glom Filt Rate - Afr Amer 101 mL/min (>60); Glucose 92 mg/dL (74-106); Sodium Level 143 mmol/L (136-145)
[2023-09-14 17:20] LABS: BNP,B-Type NATRIURETIC PEPTIDE 40.5 pg/mL (0-100)
== END | disposition home or self-care (01) ==
LOC: LAB 16:05
PROVIDERS: Referring Provider Physician Assistant Medical; Visit Provider Physician Assistant Medical
DX: R06.09 Other forms of dyspnea (principal); I10 Essential (primary) hypertension; E78.5 Hyperlipidemia, unspecified; Z95.5 Presence of coronary angioplasty implant and graft
CPT/HCPCS: 36415; 80048; 83036; 83880; 85025

== ENCOUNTER → 2023-10-19 | Outpatient (CLI) | payer MEDICARE, SELFPAY ==
--- NOTE | 2023-10-19 13:43 | STE_ITS ---
Reason For Study: Dyspnea; CAD Stress Results Protocol: Mao Protocol Maximum Predicted HR: 154 bpm Target HR: 131 bpm % Maximum Predicted HR: 73 % DurationHeart Rate Stage (mm:ss) (bpm) BP Comment Baseline 59 148/82No Chest Pain Mao Protocol Stage I 3:00 75 158/72No Chest Pain Mao Protocol Stage II 3:00 88 164/74No Chest Pain; Mild Dypnea Mao Protocol Stage III 3:30 113 170/70No Chest Pain; Moderate Dyspnea Recovery 75 160/68No Chest Pain; No Dyspnea Stress Duration: 9:30 mm:ss Maximum Stress HR: 113 bpm METS: 10 Baseline Echocardiogram Findings Stress Echo Wall motion Data Resting WM Intermediate WM Stress WM Time Measurements MV dec time: 0.26 sec Doppler Measurements & Calculations MV E max davonte: 124.7 cm/sec Lat Peak E' Davonte: 14.6 cm/sec Med Peak E' Davonte: 7.1 cm/sec MV A max davonte: 106.7 cm/sec E/E' lat: 8.6 E/E' med: 17.6 MV E/A: 1.2 MV dec slope: 405.8 cm/sec2 TR max davonte: 216.4 cm/sec TR max P.7 mmHg ECHO/Stress Test Echo w/o Contrast Interpretation Summary Exercise stress echo. 67-year-old male with a history of chest pain. Resting EKG demonstrates sinus bradycardia with a rate of 54 bpm normal interva ls are noted resting blood pressure is 148/82 mmHg. The patient exercised according to the regular B ruce protocol for a total duration of 9 minutes and 30 seconds. The patient completed 30 seconds in to stage IV of the Mao protocol. At rest there were no ST or T wave changes noted suggest ischem ia and at peak exercise upsloping ST changes were noted we did not meet the criteria for ische earl. The peak blood pressure was 170/70 mmHg which was a good blood pressure response to exercise t he workload was 10.1 metabolic equivalents and the maximum heart rate was 113 bpm which was 73% of m ax impacted heart rate. Stress echocardiogram. The resting echocardiogram demonstrated ejection fractio n of 55%. No wall motion abnormalities were noted at rest. At peak exercise there was improvement in left ventricular ejection fraction to approximately 65% with no wall motion abnormalities presen t. No chest pain was noted. Conclusion: Exercise stress echo with no EKG or echocardiographic criteria for ischemia at a high workload. Ordering Physician: Cristine Tai Referring Physician: Cristine Tai Performed By: Sandy Munroe, JUAN, RVT
== END | disposition home or self-care (01) ==
LOC: CVS 13:43
PROVIDERS: Referring Provider Physician Assistant Medical; Visit Provider Physician Assistant Medical
DX: R06.09 Other forms of dyspnea (principal)
CPT/HCPCS: 93017; 93350

== ENCOUNTER → 2025-06-12 | Outpatient (CLI) | payer MEDICARE, SELFPAY ==
--- OUTSIDE RECORDS SUMMARY | 2025-06-12 16:21 | XMS RPT_ITS | CCD ---
Author Organization [facility] Inform ion Partnership [facility] Care Team Providers Care Terrazzo Polisher Name Role Phone Max Orozco Primary Care Provider Kuldip Abreu Unavailable [phone] Chastity Ozuna PA-C Unavailable Aylin PLAZA, Dr. Fisher Unavailable Max Orozco MD Unavailable Edgar OCHOAN, Sahara San Unavailable Unavailable Vicky Lemus MA Unavailable Unavailable Isatu Thurston PA-C Unavailable [phone] Alphonse Becerra PA-C Unavailable Caleb GOYAL, Shelbie Unavailable Unavailable Darien NASH, Cristine Unavailable Unavailable Cinthia HIGUERA, Isatu Espinal Unavailable Unavaila Selene Maldonado PA-C Unavailable Luke OCHOAN, Julia Unavailable Unavailab le Vess JAVA ARCHITECT, Neilee L Unavailable Unavailable Wengerd JAVA ARCHITECT, Sheila Unavailable Unavailabl e Unavailable Unavailable KARLA Ozuna Chastity Primary Care Provider KARLA Ozuna Chastity Referring Provider KARLA Talavera Attending Provider Unavailable Unavailable Vishnu Chastity Primary Care Unavailable Vishnu Chastity Referring Unavailable Cristine Tai Attending Unavailabl e Vishnu, Chastity Primary Care Unavailable Vishnu Chastity Referring Unavailable Miguel ZURITA, Ashley Attending Unavailable Miguel ZURITA, Ashley Attending Unavailable Ozuna, Chastity Primary Care Unavailable Vishnu Chastity Referring Unavailable [facility] Unavailable Bozena Mcfarlane LPN Unavailable UnavailDebby Kahn Unavailable Unavailable GEO VIERA Admitting Unavailable GEO VIERA Attending Unavailable GEO VIERA Primary Care Unavailable CHASTITY OZUNA PAC Consulting Unavailable PROVIDER, UNKNOWN Consulting Unavailable Allergies Allergy Classification Reported Allergen(s) Allergy Type Date of Onset Reaction(s) Facility (2 sources) Ixercbc-Fve-Mmp Reductase Inhibitor Allergy to substance 4 all statins except crestor caused itching [facility] (1 source) Jwmqvft-Pjw-Uqi Reductase Inhibitor Drug allergy (disorder) 5 [facility] Repository Medications Current Medications Medication Drug Class(es) Dates Sig (Normalized) Sig (Original) [id number] actuat albuterol 0.09 mg/actuat metered dose inhaler (20 sources) beta2-Adrenergic Agonist Start: 04-25-2024 take 2 puff(s) by inhalation every four to six hours as needed Ventolin HFA 90 mcg/actuation aerosol inhaler ; 2 (two) puff(s) every 4-6hrs prn for 0 days Quantity: 1 {Each} Refills: 5 Ordered: 25-Apr-2024 JYOTSNA Ellis Start: 25-Apr-2024 Comments: Mail order. Start: 08-14-2022 End: 04-25-2024 take 12 puff(s) by inhalation once daily as needed ProAir HFA 90 mcg/actuation aerosol inhaler ; 2 (two) puffs Every 4-6 hours as needed for 0 days Quantity: 1 {Each} Refills: 2 Ordered: 25-Apr-2024 JYOTSNA Ellis Start: 14-Aug-2022 End: 25-Apr-2024 Status: Discontinued Comments: Mail order. Medication taken as needed. Maximum 12 puffs/day Start: 03-15-2022 End: 08-14-2022 Albuterol Sulfate (2.5 MG/3M L) 0.083% Inhalation Nebulization Solution ; 1 Nebu Soln vial QID/PRN rescue for cough and wheeze for 0 days Quantity: 60 {Milliliter} Refills: 2 Ordered: 14-Aug-2022 DAVIDA Vicente Start: 15-Mar-2022 End: 14-Aug-2022 Status: Inactive Start: 02-24-2021 End: 09-14-2023 take 2.5 mg by inhalation every six hours Albuterol Sulfate Discontinued 2.5 MG INHALATION EVERY 6 HOURS March 30, 2023 1:48pm September 14, 2023 3:33pm Start: 02-19-2020 End: 09-14-2023 take 1 puff(s) by inhalation every six hours Albuterol Sulfate Discontinued 2 PUFF INHALATION EVERY 6 HOURS February 19, 2020 12:00am September 14, 2023 3:33pm Start: 2018 End: 02-19-2020 take 2.5 mg by inhalation every four hours Albuterol Sulfate Discontinued 2.5 MG INHALATION Q4H 2018 12:00am February 19, 2020 4:30pm Comment on above: Mail order. Medicati on taken as needed. Maximum 12 puffs/day Mail order. amLODIPine 5 mg oral tablet (20 sources) Dihydropyridine Calcium Channel Roselia Start: End: take 5 mg by mouth once daily Amlodipine Active 5 MG PO DAILY September 14, 2023 12:00am Start: 02-19-2020 End: 02-24-2021 take 5 mg by mouth once daily Amlodipine Discontinued 5 MG PO DAILY 60 February 19, 2020 12:00am February 24, 2021 4:19pm Start: 11-13-2018 End: 02-14-2019 take 5 mg by mouth once daily Amlodipine Discontinued 5 MG PO DAILY November 13, 2018 12:00am February 14, 2019 3:43pm Start: 08-03-2017 End: 05-10-2018 take 5 mg by mouth once daily Amlodipine Discontinued 5 MG PO daily August 03, 2017 1:00am May 10, 2018 4:18pm Start: 03-18-2012 End: 03-18-2012 take 1 tablet by mouth once daily in the evening amLODIPine (NORVASC) 5 mg tablet Take 1 tablet by mouth once daily. In the evening. 30 tablet 03/18/2012 Active Comment on above: Take 1 tablet by stephania th once daily. In the evening. aspirin 81 mg delayed release oral tablet (20 sources) Platelet Aggregation Inhibitor, Nonsteroidal Anti-inflammatory Drug Start: 06-08-2017 take 81 mg by mouth once daily Aspirin Active 81 MG PO daily June 08, 2017 1:00am take 1 tablet by mouth once zhao y ASPIRIN CHILDRENS, 81MG (Oral Tablet Chewable) ; 1 daily (81 MG) Aspirin 81 mg Ta b Take 81 mg by mouth. 0 Active Comment on above: Take 81 mg by mouth. [facility] hydroCHLOROthiazide 25 mg oral tablet (5 sources) Thiazide Diuretic Start: 2023 take 25 mg by mouth once daily Hydrochlorothiazide Active 25 MG PO DAILY September 14, 2023 12:00am sulfamethoxazole 800 mg / trimethoprim 160 mg oral tablet (20 sources) Dihydrofolate Reductase Inhibitor Antibacterial, Sulfonamide Antimicrobial Start: 2024 sulfamethoxazole 800 mg-trimethoprim 160 mg tablet ; 1 (one) tablet two times daily for 7 days Quantity: 14 {Tablet} Refills: 0 Ordered: 09-Feb-2025 SKYE Ozuna Start: 09-Feb-2025 Start: 02-19-2023 End: 02-26-2023 sulfamethoxazole 800 mg-trim ethoprim 160 mg tablet ; 1 (one) tablet two times daily for 7 days Quantity: 14 {Tablet} Refills: 0 Ordered: 19-Feb-2023 SKYE Ozuna Start: 19-Feb-2023 End: 26-Feb-2023 Status: Inactive Start: 09-27-2022 End: 10-04-2022 take 1 tablet by mouth twice daily Sulfamethoxazole-Trimethoprim 800-160 MG Oral Tablet ; 1 (one) Tablet twice a day for 7 days Quantity: 14 {Tablet} Refills: 0 Ordered: 27-Sep-2022 SKYE Becerra Start: 27-Sep-2022 End: 04-Oct-2022 Status: Inactive Start: 10-04-2016 End: 10-14-2016 take 1 tablet by mouth twice daily Bactrim DS 800-160 MG Oral Tablet ; 1 Tab two times daily for 10 days Quantity: 20 {Tablet} Refills: 0 Ordered: 04-Oct-2017 MD Max Orozco Start: 04-Oct-2016 End: 14-Oct-2016 Status: Inactive Completed/Discontinued Medications Medication Drug Class(es) Dates Sig (Normalized) Sig (Original) acetaminophen 325 mg / HYDROcodone bitartrate 5 mg oral tablet (2 sources) Opioid Agonist Start: 11-21-2018 End: 11-24-2018 take 1 tablet by mouth every six hours as needed Hydrocodone-Aceta minophen Discontinued 1 TABLET PO EVERY 6 HOURS NEEDED 10 3 November 21, 2018 12:00am November 24, 2018 12:07am amLODIPine 10 mg / atorvastatin 10 mg oral tablet (20 sources) Dihydropyridine Calcium Channel Roselia, HMG-CoA Reductase Inhibitor take 1 tablet by mouth once daily AMLODIPINE-ATORVA STATIN, 10-10MG (Oral Tablet) ; 1 daily (10-10 MG) Status: Inactive amoxicillin 875 mg / clavulanate 125 mg oral tablet (20 sources) Penicillin-class Antibacterial Start: 06-17-2024 End: 06-24-2024 amoxicillin 875 mg-potassium clavulanate 125 mg tablet ; 1 (one) tablet two times daily for 7 days Quantity: 14 {Tablet} Refills: 0 Ordered: 17-Jun-2024 SKYE Ozuna Start: 17-Jun-2024 End: 24-Jun-2024 Status: Inactive Start: 01-28-2013 End: 02-07-2013 take 1 tablet by mouth twice daily AUGMENTIN, 875-125MG (Oral Tablet) ; 1 Tablet BID for 10 days Quantity: 20 {Tablet} Refills: 0 Ordered: 28-Jan-2013 MD Max Orozco Start: 28-Jan-2013 End: 07-Feb-2013 Status: Inactive Azithromycin (20 sources) Macrolide Antimicrobial Start: 06-17-2024 End: 12-31-2024 Zithromax Z-Placido 250 mg tablet ; 2 (two) Tabs day one, then one daily for 4 days for 0 days Quantity: 1 {Packet} Refills: 0 Ordered: 31-Dec-2024 CHARITY Mcfarlane Start: 17-Jun-2024 End: 31-Dec-2024 Status: Inactive Start: 06-17-2024 End: 12-31-2024 Zithromax Z-Placido 250 mg table t ; 2 (two) Tabs day one, then one daily for 4 days for 0 days Quantity: 1 {Packet} Refills: 0 Ordered: 31-Dec-2024 Start: 17-Jun-2024 End: 31-Dec-2024 Status: Inactive Start: 06-17-2024 Zithromax Z-Pa k 250 mg tablet ; 2 (two) Tabs day one, then one daily for 4 days for 0 days Quantity: 1 {Packet} Refills: 0 Ordered: 17-Jun-2024 SKYE Ozuna Start: 17-Jun-2024 Start: 08-08-2018 End: 05-14-2020 Zithromax Z-Placido 250 MG Oral Tablet ; 2 (two) Tabs Tabs day one, then one daily for 4 days for 0 days Quantity: 1 {Package} Refills: 0 Ordered: 14-May-2020 DAVIDA Vicente Start: 08-Aug-2018 End: 14-May-2020 Status: Inactive Comments: RM Comment on above: RM benzonatate 200 mg oral capsule (8 sources) Non-narcotic Antitussive Start: 4 End: 5 benzonatate 200 mg capsule ; 1 (one) capsule three times daily, as needed for 0 days Quantity: 30 {Capsule} Refills: 0 Ordered: 31-Dec-2024 CHARITY Mcfarlane Start: 17-Jun-2024 End: 31-Dec-2024 Status: Inactive Comments: Medication taken as needed. Comment on above: Medication taken as needed. clopidogrel 75 mg oral tablet (20 sources) P2Y12 Platelet Inhibitor Start: 7 End: 4 take 1 tablet by mouth once daily Clopidogrel (Plavix) 75 mg tablet Discontinued 75 MG PO daily 90 November 23, 2022 5:13pm September 14, 2023 3:50pm Comment on above: Take 75 mg by mouth once daily. [facility] famciclovir 500 mg oral tablet (9 sources) Herpes Simplex Virus Nucleoside Analog DNA Polymerase Inhibitor Start: 4 End: 4 take 1 tablet by mouth every eight hours famciclovir 500 mg tablet ; 1 (one) Tablet Every 8 hours for 7 days Quantity: 21 {Tablet} Refills: 0 Ordered: 25-Apr-2024 SKYE Ozuna Start: 25-Apr-2024 End: 02-May-2024 Status: Inactive Famotidine (20 sources) Histamine-2 Receptor Antagonist Acid Gamb Cutter ; 1-2 daily Status: Inactive 60 actuat fluticasone propionate 0.113 mg/actuat / salmeterol xinafoate 0.014 mg/actuat dry powder inhaler (20 sources) Corticosteroid, beta2-Adrenergic Agonist Start: 2 End: 4 fluticasone 113 mcg-salmeteroL 14 mcg/actuation breath activated powdr ; 1 (one) Puff two times daily for 0 days Quantity: 3 {Each} Refills: 0 Ordered: 08-Feb-2024 JYOTSNA Lemus Start: 18-Apr-2022 End: 08-Feb-2024 Status: Inactive Comments: Mail order. Comment on above: Mail order. 24 hr isosorbide mononitrate 120 mg extended release oral tablet (20 sources) Nitrate Vasodilator Start: 9 End: 9 take 120 mg by mouth once daily Isosorbide Mononitrate Discontinued 120 MG PO DAILY November 13, 2018 12:00am February 14, 2019 3:43pm Start: 03-18-2012 End: 05-10-2018 take 120 mg by mouth once daily in the morning Isosorbide Mononitrate Discontinued 120 MG PO EVERY MORNING June 08, 2017 1:00am May 10, 2018 4:20pm take 1 tablet by stephania th twice daily ISOSORBIDE MONONITRATE CR, 60MG (Oral Tablet Extended Release 24 Hour) ; 1 bid (60 MG) Status: Inactive Comment on above: Take 1 tablet by stephania th once daily. In the morning. lidocaine hydrochloride 20 mg/ml mucous membrane topical solution (20 sources) Antiarrhythmic, Amide Local Anesthetic Start: 3 End: 3 Lidocaine Viscous 2 % mucosal solution ; 15 Milliliter Q 3 hours PRN pain for 0 days Quantity: 100 {Milliliter} Refills: 1 Ordered: 19-Feb-2023 DAVIDA Vicente Start: 27-Sep-2022 End: 19-Feb-2023 Status: Inactive lisinopril 5 mg oral tablet (20 sources) Angiotensin Converting Enzyme Inhibitor Start: 4 End: 4 take 5 mg by mouth once daily Lisinopril Discontinued 5 MG PO DAILY September 14, 2023 12:00am September 14, 2023 3:40pm Start: 08-14-2022 End: 02-28-2023 lisinopriL 20 mg tablet ; 1 (one) Tablet daily for 0 days Quantity: 90 {Tablet} Refills: 0 Ordered: 28-Feb-2023 JYOTSNA Ellis Start: 14-Aug-2022 End: 28-Feb-2023 Status: Inactive Comments: Mail order. take 1 tablet by stephania th once daily lisinopril 5 mg tablet Take 5 mg by mouth once daily. 0 Active Comment on above: Take 5 mg by mouth o nce daily. Mail order. methylPREDNISolone 4 mg oral tablet (20 sources) Corticosteroid Start: End: Medrol 4 MG Oral Tablet Therapy Pack ; 1 Tab as directed for 6 days Quantity: 1 {Dose_Pack} Refills: 0 Ordered: 08-Aug-2018 SKYE Thurston Start: 08-Aug-2018 End: 14-Aug-2018 Status: Inactive 24 hr metoprolol succinate 25 mg extended release oral tablet (20 sources) beta-Adrenergic Roselia Start: 018 End: take 2 tablets by mouth once daily Metoprolol Succinate (Toprol Xl) 25 mg tablet extended release 24 hr Discontinued 12.5 MG PO daily September 14, 2017 4:08pm May 10, 2018 4:21pm Start: 06-08-2017 End: 09-14-2017 take 1 tablet by mouth once daily Metoprolol Succinate (Toprol Xl) 25 mg tablet extended release 24 hr Discontinued 25 MG PO daily June 08, 2017 1:00am September 14, 2017 4:09pm take 1 tablet by stephania th every twenty-four hours TOPROL XL, 25MG (Oral Tablet Extended Release 24 Hour) ; 1 daily (25 MG) Status: Inactive Comment on above: Take 25 mg by mouth once daily. nitroglycerin 0.4 mg sublingual tablet (20 sources) Nitrate Vasodilator Start: 5 End: 3 Nitrostat 0.4 MG Sublingual Tablet Sublingual ; 1 (one) Tablet Tablet q 5min prn CP for 0 days Quantity: 25 {Tablet} Refills: 5 Ordered: 08-Aug-2018 CHARITY Mckeon Start: 25-Dec-2014 End: 08-Aug-2018 Status: Inactive predniSONE 20 mg oral tablet (9 sources) Start: 4 End: 4 predniSONE 20 mg tablet ; 1 (one) Tablet as directed for 0 days Quantity: 20 {Tablet} Refills: 0 Ordered: 17-Jun-2024 JYOTSNA Ellis Shelbie Start: 25-Apr-2024 End: 17-Jun-2024 Status: Inactive Comments: Take 3tabs qd for 3 days thenTake 2tabs qd for 3 days thenTake 1tab qd for 3 days thenTake 1/2tab qd for 4 days. Comment on above: Take 3tabs qd for 3 days thenTake 2tabs qd for 3 days thenTake 1tab qd for 3 days thenTake 1/2tab qd for 4 days. 12 hr ranolazine 1000 mg extended release oral tablet (20 sources) Anti-anginal Start: 9 End: 0 take 1000 mg by mouth twice daily Ranolazine Discontinued 1000 MG PO TWICE A DAY May 04, 2019 12:00am February 19, 2020 4:29pm Start: 11-21-2018 End: 02-14-2019 take 1 tablet by mouth every twelve hours Ranolazine Discontinued 75 MG PO Q12H November 21, 2018 2:01pm February 14, 2019 3:43pm do not break, crush, or chew tablet(s) Start: 08-03-2017 End: 11-21-2018 take 1 tablet by mouth every twelve hours Ranolazine (Ranexa) 1,000 mg tablet extended release 12 hr Discontinued 1000 MG PO Q12H September 13, 2017 11:53am November 21, 2018 2:01pm do not break, crush, or chew tablet(s) Start: 06-08-2017 End: 08-03-2017 take 1 tablet by mouth every twelve hours Ranolazine (Ranexa) 500 mg tablet extended release 12 hr Discontinued 500 MG PO Q12H June 08, 2017 1:00am August 03, 2017 12:24pm take 1 tablet by stephania th once daily Ranexa 500 MG Oral Tablet Extended Release 12 Hour ; 1 daily (500 MG) Status: Inactive rosuvastatin calcium 20 mg oral tablet (20 sources) HMG-CoA Reductase Inhibitor Start: 06-08-2017 End: 11-23-2022 take 1 tablet by mouth once daily Rosuvastatin (Crestor) 20 mg tablet Discontinued 20 MG PO daily 90 January 10, 2022 5:00pm November 23, 2022 5:13pm Comment on above: Take 20 mg by mouth once daily. [facility] Problems Active Problems Problem Classification Problem Date Documented Da te Episodic/Chronic Abdominal hernia (20 sources) Hiatal hernia; Translations: [Diaphragmatic hernia without obstruction or gangrene] 03-09-2023 Episodic Abdominal pain (20 sources) Abdominal pain, generalized 12-22-2011 Episodic Acute bronchitis (20 sources) Acute bronchitis; Translations: [Acute bronchitis, unspecified] 01-28-2013 Episodic Administrative/social admission (20 sources) Issue of repeat prescriptions 12-25-2014 Episodic Asthma (20 sources) Asthma; Translations: [Unspecified asthma, uncomplicated] 03-09-2023 Chronic Bacterial infection; unspecified site (20 sources) Methicillin resistant Staphylococcus aureus infection; Translations: [Methicillin resistant Staphylococcus aureus infection, unspecified site] 08-08-2018 Episodic Chronic obstructive pulmonary disease and bronchiectasis (20 sources) Bronchitis; Translations: [Bronchitis, not specified as acute or chronic] 02-19-2023 Episodic Conduction disorders (2 sources) Mobitz type I incomplete atrioventricular block; Translations: [Atrioventricular block, second degree] 02-19-2020 Chronic Coronary atherosclerosis and other heart disease (20 sources) Coronary atherosclerosis; Translations: [Atherosclerotic heart disease of [place] coronary artery without angina pectoris] Onset: 2 02-27-2012 Chronic Diseases of mouth; excluding dental (20 sources) Ulcer of mouth; Translations: [Other forms of stomatitis] 03-09-2023 Episodic Disorders of lipid metabolism (5 sources) Hyperlipidemia; Translations: [Hyperlipidemia, unspecified] Onset: 2 02-27-2012 Chronic Esophageal disorders (20 sources) Gastroesophageal reflux disease; Translations: [Gastro-esophageal reflux disease without esophagitis] 03-09-2023 Chronic Essential hypertension (20 sources) Hypertensive disorder; Translations: [Essential (primary) hypertension] Onset: 2 02-27-2012 Chronic Gastrointestinal hemorrhage (20 sources) Gastrointestinal hemorrhage; Translations: [Hemorrhage of anus and rectum] 08-08-2018 Episodic Malaise and fatigue (4 sources) Fatigue; Translations: [Other fatigue] 01-01-2025 Episodic Nonspecific chest pain (4 sources) Chest pain; Translations: [Chest pain, unspecified] 02-19-2020 Episodic Other aftercare (20 sources) Removal of sutures done; Translations: [Encounter for removal of sutures] 08-08-2018 Episodic Other aftercare (2 sources) Long-term current use of drug therapy; Translations: [Other franchise specialist (current) drug therapy] 05-10-2018 Episodic Other connective tissue disease (20 sources) Swelling of lower limb; Translations: [Other specified soft tissue disorders] 03-09-2023 Episodic Other gastrointestinal disorders (4 sources) Occult blood in stools; Translations: [Other fecal abnormalities] 01-01-2025 Episodic Other lower respiratory disease (20 sources) Cough; Translations: [Cough] 02-19-2023 Episodic Other lower respiratory disease (2 sources) Dyspnea on exertion; Translations: [Other forms of dyspnea] 09-14-2023 Episodic Other lower respiratory disease (2 sources) Dyspnea; Translations: [Shortness of breath] 02-19-2020 Episodic Other lower respiratory disease (2 sources) Other forms of dyspnea; Translations: [Other respiratory abnormalities] 09-14-2023 Episodic Other nutritional; endocrine; and metabolic disorders (20 sources) Morbid obesity; Translations: [Morbid (severe) obesity due to excess calories] 03-09-2023 Chronic Other nutritional; endocrine; and metabolic disorders (20 sources) Unintentional weight loss; Translations: [Abnormal weight loss] 08-08-2018 Episodic Other screening for suspected conditions (not mental disorders or infectious disease) (20 sources) Patient encounter status; Translations: [Encounter for screening for malignant neoplasm of colon] 08-14-2022 Episodic Other skin disorders (20 sources) Ingrowing nail of toe of right foot; Translations: [Ingrowing nail] 02-19-2023 Episodic Other skin disorders (2 sources) Cyst of skin; Translations: [Follicular cyst of the skin and subcutaneous tissue, unspecified] 02-09-2025 Episodic Pneumonia (except that caused by tuberculosis or sexually transmitted disease) (16 sources) Pneumonia; Translations: [Pneumonia, unspecified organism] 06-17-2024 Episodic Residual codes; unclassified (20 sources) Influenza vaccination declined; Translations: [Immunization not carried out because of patient refusal] 03-09-2023 Episodic Skin and subcutaneous tissue infections (20 sources) Cellulitis; Translations: [Cellulitis, unspecified] 03-09-2023 Episodic Spondylosis; intervertebral disc disorders; other back problems (20 sources) Low back pain; Translations: [Lumbago] 08-08-2018 Episodic Unclassified (12 sources) Transition into care - The patient is transitioning into care from a hospital and a summary of care was reviewed. 02-28-2023 Unclassified (12 sources) [ADDITIONAL REASON] Follow up from hospital stay - Name of Hospital: [facility]. Date of Admission: 02/21/23. Date of Discharge: 02/25/23. The patient was hospitalized for cellulitis. New medications include aspirin clopidogrel rosuvastatin augmentin . Patient did not have any consultations ordered while in the hospital. No post hospital therapies were ordered. Patient was discharged to home. Current Symptoms: left knee pain . Note for Follow up from hospital stay: Patient currently taking 10 days of Augmentin following IV antibiotics inpatient. Reports continued left knee pain (2-3/10 dull pain), but denies any fatigue, fever, or chills. 02-28-2023 Unclassified (20 sources) Follow up for multiple chronic conditions - The patient is here for follow-up of asthma, coronary artery disease and GERD. The patient always takes the prescribed medications. No side effects noted (does need refills today). The patient has an active lifestyle but no regular exercise program. The patient's out of office blood pressure checks occur frequently (been running high when BP checked - reports readings in the 160s/90s) and dietary compliance is fair often eating foods not normally recommended (states that he does not eat that much). The patient states that breathing effort is stable (He continues to feel short of breath after he eats. Sometimes days at work, he will not eat because of this. Denies chest pain. Reports some relief from OTC famotidine. Takes famotidine several times a day.), weight has increased (11lbs since last rtn 01/2022) and they do not have headaches. 08-14-2022 Unclassified (6 sources) Transition into care - The patient is transitioning into care from another physician (oncology social worker 01/2020) and a summary of care was reviewed. 05-14-2020 Unclassified (6 sources) [ADDITIONAL REASON] Follow up for chronic condition - The patient is here for follow-up of other condition(s) (Asthma). The patient always takes the prescribed medications. No side effects noted (would like 90 day prescription of albuterol with refills). The patient has an active lifestyle but no regular exercise program. The patient's out of office blood pressure checks occur rarely. The patient states that breathing effort is stable, there is no recent angina or dyspnea (states that his breathing is good currently but seems to get worse with the colder weather) and they do not have headaches. Note for Chronic condition follow-up: reviewed by [facility] 05-14-2020 Unclassified (20 sources) Cold Symptoms - Symptoms include productive cough, wheezing, fever, chills and general malaise, but do not include sneezing, nasal congestion, runny nose, ear pain, ear fullness, sore throat, headache or facial pain. The onset was sudden 7 day(s) ago. The symptoms occur constantly. The patient describes this as severe and unchanged. Current treatment includes non-prescription cold medication and home remedies. Risk factors do not include smoking. The patient has not been exposed to an individual with a cough or an individual with similar symptoms. Medical history includes asthma, but patient denies history of seasonal allergies, recurrent sinusitis or recurrent ear infections. Note for Upper respiratory infection: he has proair but has not been using it (statess it teran his lungs), had recent PFT's ordered per Scott but has not yet discussed the results with [facility]. 08-08-2018 Unclassified (14 sources) Follow up for chronic condition - The patient is here for follow-up of other condition(s) (Asthma). The patient always takes the prescribed medications. No side effects noted (would like 90 day prescription of albuterol with refills). The patient has an active lifestyle but no regular exercise program. The patient's out of office blood pressure checks occur rarely. The patient states that breathing effort is stable, there is no recent angina or dyspnea (states that his breathing is good currently but seems to get worse with the colder weather) and they do not have headaches. Note for Chronic condition follow-up: reviewed by [facility] 05-14-2020 Unclassified (14 sources) [ADDITIONAL REASON] Transition into care - The patient is transitioning into care from another physician (oncology social worker 01/2020) and a summary of care was reviewed. 05-14-2020 Unclassified (8 sources) Follow up from hospital stay - Name of Hospital: [facility]. Date of Admission: 02/21/23. Date of Discharge: 02/25/23. The patient was hospitalized for cellulitis. New medications include aspirin clopidogrel rosuvastatin augmentin . Patient did not have any consultations ordered while in the hospital. No post hospital therapies were ordered. Patient was discharged to home. Current Symptoms: left knee pain . Note for Follow up from hospital stay: Patient currently taking 10 days of Augmentin following IV antibiotics inpatient. Reports continued left knee pain (2-3/10 dull pain), but denies any fatigue, fever, or chills. 02-28-2023 Unclassified (8 sources) [ADDITIONAL REASON] Transition into care - The patient is transitioning into care from a hospital and a summary of care was reviewed. 02-28-2023 Unclassified (1 source) MCR Well Adult - In general the patient feels well with no complaints, has good energy level (Pt said yes and no) and is sleeping well. The patient has inadequate caloric intake and takes no supplemental vitamins & iron. The patient exercises none (active) and sleeps 4 hours per night. The patient denies having trouble with bathing, dressing/grooming, toileting, preparing meals and ambulating. The patient denies having trouble with grocery shopping, driving, use of telephone, housework, laundry, preparing/taking medications and finances. The patient has a Healthcare Power of Revenue Cycle Consultant and a Living Will. Note for [facility] Well Adult: 07.22 cologuard normal 02-08-2024 Viral infection (20 sources) Viral disease; Translations: [Viral infection, unspecified] 03-15-2022 Episodic Past or Other Problems Problem Classification Problem Date Documented Date Episodic/Chronic Coronary atherosclerosis and other heart disease (3 sources) Patient post percutaneous transluminal coronary angioplasty; Translations: [Coronary angioplasty status] Onset: 08-06-2008 02-27-2012 Episodic Other nutritional; endocrine; and metabolic disorders (1 source) Overweight; Translations: [Overweight] Onset: 02-27-2012 02-27-2012 Episodic Unclassified (20 sources) MCR Well Adult - In general the patient feels well with no complaints, has good energy level and is sleeping well. The patient has a balanced diet. The patient exercises 3 - 4 times per week and sleeps 5 hours per night. The patient denies having trouble with bathing, dressing/grooming, toileting, preparing meals and ambulating. The patient denies having trouble with grocery shopping, driving, use of telephone, housework, laundry, preparing/taking medications and finances. The patient does not have Healthcare Power of Revenue Cycle Consultant or Living Will. Note for MCR Well Adult: Up to date on colon cancer screening. 03-09-2023 Unclassified (20 sources) Fever - The onset of the fever has been sudden , and it has been occurring in a persistent pattern for days. The course has been increasing. The patient has had a temperature of up to 101 F. The fever is relieved by analgesics. There has been associated fatigue and leg pain, while there has been no chest pain, cough, dyspnea or lymphadenopathy. Note for Fever: Sunday night, he was having chills and felt feverish. He continued to have over the weekend. This morning at home his temp was 101F. He took Tylenol about 7:30am approximately. He is feeling fatigued and has joint pains. He did have a scab to his left knee on Sunday, then he noticed redness to the left lower anterior leg yesterday and the redness is spreading. The area is warm and is severe pain. The pain is like tearing sensation. 02-19-2023 Unclassified (20 sources) Cold Symptoms - Symptoms include ear fullness, dry cough, productive cough and facial pain, but do not include non-purulent sputum, purulent discharge, ear pain, sore throat, scratchy throat, hoarseness, wheezing, fever, chills, general malaise or headache. The onset was gradual 1 week(s) ago. The symptoms occur constantly. The patient describes this as moderate in severity and worsening. Current treatment includes cold & flu (NyQuil, Tylenol, ibuprofen; Topical OTC cream for mouth lesions). Risk factors do not include child in daycare or smoking. The patient has not been exposed to an individual with a cough, an individual with an upper respiratory infection, an individual with similar symptoms, an individual with strep or secondhand smoke. Patient denies history of seasonal allergies, recurrent sinusitis, recurrent strep pharyngitis, asthma, tonsillectomy or recurrent ear infections. Note for Upper respiratory infection: sores present on the upper and lower lips as well as within the nostrils; patient unable to eat solid foods and has been consuming a liquid diet; patient notes significant tenderness of his face and mouth. 09-27-2022 Unclassified (20 sources) ingrown toe nail - Right toe has been painful fo several week, pt has hx of ingrown toenails and has had them removed about 15 years ago. Pt had injury and lost the toenail and when it grew back it was painful. reviewed by [facility] 05-18-2022 Unclassified (9 sources) Transition into care - The patient is transitioning into care from an emergency room and a summary of care was reviewed. 03-15-2022 Unclassified (9 sources) [ADDITIONAL REASON] Follow up consultation - The patient is here to follow-up after Emergency Room/Urgent Care (Patient was seen in the ER for weakness and shortness of breath. COVID and influenza testing was negative. Was diagnosed with a viral illness and discharged home.) on : (03/14/2022 AM). Current symptoms include weakness and diarrhea, fatigue. Note for Consultation follow-up: Patient denies any fever, chest pain, or shortness of breath. He does have continued weakness, fatigue, and diarrhea, though he reports that he is feeling better overall today.Patient was given a prescription for an antibiotic, but he has not filled this. 03-15-2022 Unclassified (20 sources) MCR Well Adult - In general the patient feels well with minor complaints (works 55 hours a week. just shortness of breath after he eats and sometimes with exertion. Also feels bloated and something is pushing against his lungs. Has not been using his daily Advair inhaler because he ran out months ago. Last week he used his albuterol nebulizer a few times. He reports that his asthma has been stable for some time. He does have a history of a hiatal hernia.), has good energy level (im getting older and getting slower.) and is sleeping well. The patient has a balanced diet and takes no supplemental vitamins & iron. The patient exercises none (no planned exercise - finds exercise hard due to shortness of breath) and sleeps 4 (4-5 hours a night) hours per night. The patient denies having trouble with bathing, dressing/grooming, toileting, preparing meals and ambulating. 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 The patient does not have Healthcare Power of Revenue Cycle Consultant (pt unsure if he has or not) or Living Will. Note for MCR Well Adult: Is fasting today. Has an appt next week with Police Stenographer ([facility]).Patient states that after he eats will become very short of breath. His oncology social worker says that his heart is not the cause of this. Dr. Geo Viera did an upper scope about 4-5 years ago. Also, had a colonoscopy about 5 years ago (pt said the colonoscopy was to be repeated in 3 years but has not done, I do not have time to do things like that. No family history of colon cancer.Patient denies any chest pain or dizziness with this shortness of breath. 02-24-2022 Unclassified (20 sources) Cold Symptoms - Symptoms include hoarseness and dry cough, but do not include nasal congestion, runny nose, ear pain, sore throat, productive cough, wheezing, fever, chills, general malaise, headache or facial pain. The onset was gradual 4 day(s) ago. The symptoms occur constantly. The patient describes this as mild and unchanged. Current treatment includes non-prescription cold medication (nightquil) and NSAIDs (last dose was this am). Risk factors do not include smoking. The patient has not been exposed to an individual with a cough, an individual with an upper respiratory infection, an individual with similar symptoms, an individual with strep or secondhand smoke. Medical history includes asthma (pt uses nebulizer daily), but patient denies history of seasonal allergies, recurrent sinusitis, recurrent strep pharyngitis, tonsillectomy or recurrent ear infections. Note for Upper respiratory infection: SOB w exertionno chest pain - sees cardiology regularly it teran to take a deep breath inPatient would also like to talk today about shortness of breath and postprandial fullness that he has been having for many years. He was previously worked up with an EGD in 2011, which did not show any significant findings. Patient denies any trouble swallowing. Patient reports that his symptoms usually resolve with use of Tums. Reports that he sometimes has mild epigastric pain with this. 08-16-2021 Unclassified (20 sources) Leg Pain - The leg pain began suddenly and has been occurring for 1 week. The symptoms have been occurring in a persistent pattern. The symptoms are described as a burning sensation and are moderate in severity. There is involvement of the right lower extremity. There are no precipitating factors. The symptoms have been associated with calf swelling. Note for Leg pain: No recent travel or injuries. No family or personal hx of DVT 07-05-2020 Unclassified (20 sources) Recheck - Patient is here today for a 1 week recheck. Was last seen 08/08/2018 for cough. Chest xray done at that time that was negative. Started on Zpak and Medrol, albuterol treatments. Patient states that he is feeling better and his breathing has improved. Denies having chest pain, shortness of breath or wheezing. Continues to have a cough that is less productive that it was. States that he feels tired every day especially after working. He also had PFTs done by cardiology. 08-16-2018 Unclassified (20 sources) Staph infection - Was diagnosed with staph infection while in [place] a couple weeks ago. Continues with redness and pain. Is currently on Bactrim DS two tablets twice a day. It is improving. He had an abscess , had a drainage tube placed 3 times. 10-04-2016 Unclassified (20 sources) Suture Removal - Pt had Laser Spine Surgery on 04/19/15. He is here today to have sutures removed from lower back. There is 2 sutures that need to be removed. Incision healing well and no redness or draining noted. Is feeling well. Getting around very well. reviewed by [facility] 05-07-2015 Unclassified (4 sources) Rectal bleeding - The onset of the rectal bleeding has been gradual and has been occurring in an intermittent pattern for 2 weeks. The course has been recurrent. The bleeding is characterized as blood mixed in stools. The symptoms have been associated with easy bruising and use of aspirin (Takes 81mg nbaby aspirin 2 daily. He was also on Plavix 75 mg. He saw Police Stenographer Sunday night and he took him off the Plavix. He was to stay on the Apsirin however.), while the symptoms have not been associated with abdominal pain, change in bowel habits, hard stools, heartburn or painful bowel movements. The symptoms do not include pain or painful bowel movements. Previous diagnostic tests have included none (and pt does not hae hemorrhoids that he is aware of.). Note for Rectal bleeding: reviewed by [facility] 12-25-2014 Unclassified (4 sources) [ADDITIONAL REASON] F/U - Pt here today to f/u back pain and x-rays that were done. 12-25-2014 Unclassified (20 sources) Weight loss - The patient has been losing weight for 2 months (gradually.). The patient's appetite is decreased (doesnt have much of an appetite.). The patient's dietary intake is decreased. The patient has lost 1 pound (per day losing.). The weight loss has been associated with diarrhea (when he eats it goes straight through.), but it has not been associated with abdominal pain. Note for Weight loss: He weighed 234 a few months ago by his scales and now down to 206 by his scales. he had EGD 2 years ago for GERD sx. 12-02-2014 Unclassified (20 sources) Cold Symptoms - Symptoms include nasal congestion, hoarseness, dry cough, productive cough, fever (at times), chills, general malaise and facial pain. The onset was sudden 2 week(s) ago. The symptoms occur constantly. The patient describes this as moderate in severity and worsening. Current treatment includes non-prescription cold medication. Patient denies history of seasonal allergies or asthma. Note for Upper respiratory infection: reviewed by [facility] 01-28-2013 Unclassified (20 sources) Cold Symptoms - Symptoms include nasal congestion, dry cough and chills, but do not include sneezing, runny nose, ear pain, sore throat or headache. The onset was gradual 5 day(s) ago. The symptoms occur constantly. The patient describes this as moderate in severity and worsening. Current treatment includes non-prescription cold medication (coricidin HBP). The patient has not been exposed to an individual with similar symptoms. Medical history includes tonsillectomy, but patient denies history of seasonal allergies, recurrent sinusitis, recurrent strep pharyngitis, asthma or recurrent ear infections. Note for Upper respiratory infection: Some shortness of breath but may be related to heart condition. Per patient he was been in and out of [facility] for the past 2 months - has had 3 MIs. Recently had a stress test and angiogram. 04-05-2012 Unclassified (20 sources) Abdominal pain - The onset of the pain has been gradual and has been occurring in a persistent pattern for 6 weeks. The pain is described as a severe cramping (and pain- it varies.). The pain is located in the lower abdomen (all across.) and does not radiate. The symptoms are relieved by antacids. The symptoms have been associated with bloating, while the symptoms have not been associated with heartburn or nausea. Note for Abdominal pain: No previous testing. Pt has talked this over with his oncology social worker and with his heart problems -pt has 9 stints in and several heart attacs that this is normal.Pt feels bloated at all times. Whenever he eats he becomes sob and it is hard to breathe. This feeling gradually goes away. WIll take some tums and that helps a little. Eating will aggravate this but can happen any time. reviewed by [facility] 12-11-2011 Unclassified (16 sources) F/U - Pt here today to f/u back pain and x-rays that were done. 12-25-2014 Unclassified (16 sources) [ADDITIONAL REASON] Rectal bleeding - The onset of the rectal bleeding has been gradual and has been occurring in an intermittent pattern for 2 weeks. The course has been recurrent. The bleeding is characterized as blood mixed in stools. The symptoms have been associated with easy bruising and use of aspirin (Takes 81mg nbaby aspirin 2 daily. He was also on Plavix 75 mg. He saw Police Stenographer Sunday night and he took him off the Plavix. He was to stay on the Apsirin however.), while the symptoms have not been associated with abdominal pain, change in bowel habits, hard stools, heartburn or painful bowel movements. The symptoms do not include pain or painful bowel movements. Previous diagnostic tests have included none (and pt does not hae hemorrhoids that he is aware of.). Note for Rectal bleeding: reviewed by [facility] 12-25-2014 Unclassified (11 sources) Follow up consultation - The patient is here to follow-up after Emergency Room/Urgent Care (Patient was seen in the ER for weakness and shortness of breath. COVID and influenza testing was negative. Was diagnosed with a viral illness and discharged home.) on : (03/14/2022 AM). Current symptoms include weakness and diarrhea, fatigue. Note for Consultation follow-up: Patient denies any fever, chest pain, or shortness of breath. He does have continued weakness, fatigue, and diarrhea, though he reports that he is feeling better overall today.Patient was given a prescription for an antibiotic, but he has not filled this. 03-15-2022 Unclassified (11 sources) [ADDITIONAL REASON] Transition into care - The patient is transitioning into care from an emergency room and a summary of care was reviewed. 03-15-2022 Unclassified (1 source) [facility] Well Adult - Note for [facility] Well Adult: 03.08.22 cologuard normal 02-08-2024 Unclassified (13 sources) [facility] Well Adult - In general the patient feels well with no complaints, has good energy level and is sleeping well. The patient has a balanced diet and takes no supplemental vitamins & iron. The patient does not exercise and sleeps 4 hours per night. The patient denies having trouble with bathing, dressing/grooming, toileting, preparing meals and ambulating. The patient denies having trouble with grocery shopping, driving, use of telephone, housework, laundry, preparing/taking medications and finances. The patient has a Healthcare Power of Revenue Cycle Consultant and a Living Will. Note for [facility] Well Adult: 03.08.22 [facility] normalHas labs to be reviewed today.Patient would like to discussed methods of weight loss. 02-08-2024 Unclassified (9 sources) Rash - The onset of the rash has been sudden and has been occurring in a persistent pattern for 1 week. The course has been constant. The rash is characterized as red and raised above the skin. The rash was first seen on the back (left lower side). There has been no progression. There has been associated itching (very little), pain (Patient describes a burning pain that radiates around his abdomen) and erythema, while there has been no associated edema. There has been no associated chills, fever, lymphadenopathy or malaise. Note for Rash: Patient also requesting a refill of his rescue inhaler at this time. He reports that this inhaler continues to work well for his symptoms and that he only needs to use it occasionally. 04-25-2024 Unclassified (1 source) Cough - The onset of the cough has been gradual and has been occurring in a persistent pattern for 1 week. The course has been constant. The cough is characterized as productive of white sputum. The amount of sputum is scanty. The cough occurs all the time. Associated symptoms include chest pain (mild), while there is no facial puffiness, night sweats or runny nose. Note for Cough: pt is taking Nyquil , infection fighter 06-17-2024 Unclassified (7 sources) Cough - The onset of the cough has been gradual and has been occurring in a persistent pattern for 1 week. The course has been constant. The cough is characterized as productive of white sputum. The amount of sputum is scanty. The cough occurs all the time. The cough is not aggravated by exposure to dust, particular position or supine posture. Associated symptoms include dyspnea (Patient reports shortness of breath at times), while there is no chest pain, facial puffiness, fever, headache, hemoptysis, night sweats, runny nose, sinus pain, sinus pressure, sore throat, throat clearing, weight loss or wheezing. Note for Cough: Patient has been using OTC cough medications with little relief of his symptoms. 06-17-2024 Unclassified (1 source) Follow up laboratory test results - Lab results returned on : (12/22/24) include other (Positive FIT test). The patient denies any current symptoms. Note for Laboratory test results follow-up: Patient received letter in mail that his FIT test was positive, patient is here today to discuss next steps. 01-01-2025 Unclassified (2 sources) Follow up laboratory test results - Lab results returned on : (12/22/24) include other (Positive FIT test). The patient denies any current symptoms. Note for Laboratory test results follow-up: Patient received letter in mail that his FIT test was positive, patient is here today to discuss next steps. Patient denies any bloody stool, abdominal pain, fever, night sweats, or unintentional weight loss. He does report persistent fatigue for the last 6 months. He denies any symptoms of anxiety or depression. He currently works 10 hours a day and gets 5-6 hours of sleep a night. 01-01-2025 Unclassified (1 source) staph infection in arm pit - Pt states that about 10 days ago he noticed a lump in his left armpit. It was small at first and not painful. In the last several days he started to have pain and redness. Yesterday the area started to have drainage and became even more painful. He denies any fever or chills at this time. 02-09-2025 Results Test Name Value Interpretation Reference Range Facility Final Surgical Pathology Rep aranza 03-09-2025 Final Surgical Pathology Report . Pathology Reports Accession: Collected Date/Time: Received Date/Time: Pathologist: [id number] 03/04/2025 11:10 EDT 03/06/2025 07:55 EDT MD MATTHEW DUMONT Final Surgical Pathology Report DIAGNOSIS: A. COLON, 70 CM, BIOPSY: - TUBULAR ADENOMA B. COLON, 80 CM, BIOPSY: - TUBULOVILLOUS ADENOMA AND SEPARATE SLIGHTLY POLYPOID FRAGMENT OF COLONIC MUCOSA WITH SOME FEATURES SUGGESTIVE OF HYPERPLASTIC POLYP C. CECUM, BIOPSY: - FRAGMENTS OF TUBULAR ADENOMAS D. COLON, 30 CM, BIOPSY: - TUBULAR ADENOMA COMMENT: [facility] [id number] CLINICAL INFORMATION: SCREENING Procedure: COLONOSCOPY SPECIMEN: A 70 CM COLON POLYP B 80 CM COLON POLYP X 2 C CECUM POLYP X 2 D 30 CM POLYP GROSS DESCRIPTION: All parts labelled with patient name and [id number] A. Received in formalin labeled 70 cm colon polyp are 5 hernandez-brown tissue fragments measuring 0.3 x 0.1 to 0.5 cm. TS-1 B. Received in formalin labeled 80 cm colon polyp x 2 are 3 hernandez-brown tissue fragments measuring 0.3 x 0.2 to 0.5 x 0.4 cm.. TS-1 C. Received in formalin labeled cecum polyp x 2 are multiple hernandez-brown tissue fragments aggregating to 0.3 x 0.4 x 0.3 cm. Smallest fragments may not survive processing. TS-1 D. Received in formalin labeled 30 cm polyp is 1 hernandez-brown polypoid tissue fragment measuring 1.1 x 0.7 x 0.6 cm. Margin is inked black and specimen is bisected and submitted in 1 cassette. TS-1 Eveyln Murray, Grossing Resident In Diagnostic Radiology/ Dr. Huang Martinez, Pathologist Performed by Evelyn Murray MICROSCOPIC DESCRIPTION: The microscopic examination is performed, except in the case of Gross Only. Pathology Reports Accession: Collected Date/Time: Received Date/Time: Pathologist: [id number] 03/04/2025 11:10 EDT 03/06/2025 07:55 EDT MD MATTHEW DUMONT Verified by Pathology Report verified by [facility] MATTHEW DUMONT MD Sign out Date: 03/09/2025 07:59 Performing Lab: [facility], [address] [place] [address] Pathology Dept Disclaimer If ancillary studies were utilized, the following Laboratory Developed Test (LDT) disclaimer will apply: Under CLIA requirements, [facility] is qualified to perform high complexity testing. For all ancillary stains, positive and negative controls stain appropriately. Performance characteristics of immunohistochemical and chromogenic in-situ hybridization tests have been determined by [facility]. These tests are used for clinical purposes, They should not be regarded as investigational or for research. Normal [facility] MAIN OPERATIVE PROCEDURESon 03-07 OPERATIVE PROCEDURES [facility] OPERATIVE REPORT NAME ACCOUNT SEX AGE ADMIT DISCHARGE PT MED. RECORD# NUMBER DATE DATE TYPE AYLIN [id number] Tanner 69 03/04/25 03/04/25 2 [address] Rod [id number] ROOM: [facility] DATE OF : 1955 DICTATING PHYSICIAN: Geo Viera DATE OF SURGERY: March 04, 2025 SURGEON: Geo Viera MD APPLICATIONS SYSTEMS ANALYST: ANESTHESIOLOGIST: Jason Rodriguez CRNA ANESTHETIC: PREOPERATIVE DIAGNOSIS: POSTOPERATIVE DIAGNOSIS: Screening colonoscopy, history of polyps, and hemorrhoids. OPERATION PERFORMED: Colonoscopy with biopsy and polypectomy with wire snare polypectomy. COMPLICATIONS: ESTIMATED BLOOD LOSS: Minimal. SPECIMEN: Biopsy/polyps at 30 cm, 70 cm, 80 cm (2), and cecum (2), all sent to Pathology. DISPOSITION: Stable, to recovery. INDICATIONS: Andrey Viera is a 69-year-old gentleman who presents for screening endoscopy. He has a prior history of benign polyps. DESCRIPTION OF OPERATION: After informed consent and intravenous fluids, he was brought to endoscopy and placed on a padded gurney in the left lateral decubitus position with adequate padding at pressure points. He was given sedation per Anesthesia with monitoring throughout. Digital examination in the left lateral decubitus position showed external hemorrhoidal tags, normal tone, and small internal tags. The prostate did not have nodules that I could palpate. The Olympus [id number] Page 1 of 2 ANDREY VIERA Operative Report ANDREY Viola AYLIN : 1955 flexible colonoscope was introduced through the anal verge and carefully advanced, protecting the surrounding mucosa. The scope was advanced through the rectal vault and then through the sigmoid colon, which was rather tortuous. The scope was advanced through the descending colon, beyond the splenic flexure, transverse colon, hepatic flexure, and ascending colon toward the ileocecal junction. Fluid, mucus and stool particles were irrigated and suctioned. The landmarks were noted and documented. The prep was not very good, but with copious irrigation and suctioning the view improved. It should be noted that there were polyps. The scope was withdrawn, and the ascending, transverse, descending and sigmoid colon were carefully viewed. There were polyps in the cecum, 2 small, sessile, pinkish polypoid structures of about 0.3 and 0.4 cm wide. At 80 cm there were 2 polyps, one of which was somewhat pedunculated and about 0.6 cm at its widest point and removed with the wire snare using standard hot wire technique. There was also a sessile, pinkish polypoid structure of about 0.3 cm which was removed with the cold grasp forceps and enclosed in this specimen cup. Also, at 70 cm there was one sessile, pinkish, slightly pedunculated polypoid structure of about 0.5 cm which was removed with the wire snare using hot wire technique. An adjacent pink polypoid structure of about 0.4 cm was removed with the forceps in standard technique, and there was good hemostasis. As the scope was withdrawn, it was also noted at 30 cm there was a pedunculated polypoid structure, pink in color and about 0.5 cm. This was removed with the wire snare using standard hot wire technique and sent to Pathology. In the rectal vault, the scope was retroflexed, rotated, straightened out, and withdrawn with decompression with irrigation and suctioning as needed. There were internal and external hemorrhoids, but no tear or fissure is seen. The patient tolerated the procedure well. The case will be discussed with the patient when he is more awake and alert, and pathology will be followed by my office. Dictated By: Geo Viera MD 03/04/25 11:41 JOB #: [id number] Transcribed By: michelle 03/04/25 20:51 Electronically signed by: E-Sign Dr. Geo Viera MD 03/07/25 18:02 Page 2 of 2 ANDREY VIERA Operative Report Normal [facility] CBC (INCLUDES DIFF/PLT)on Basophils (Bld) [#/Vol] 0.07 10*3/uL Normal 0-200 [facility] Comment on above: Performed By: #### 1 0231, 6399 #### [facility] of [address], [address] [place] [address] Private Pilot: Simeon Celeste MD Basophils/100 WBC (Bld) 0.9 % Normal [facility] Comment on above: Performed By: #### 1 0231, 6399 #### [facility] of [place] [address] Private Pilot: Simeon Celeste MD Eosinophils (Bld) [#/Vol] 0.25 10*3/uL Normal 15-500 [facility] Comment on above: Performed By: #### 1 0231, 6399 #### [facility] of [address], [address] [place] [address] Private Pilot: Simeon Celeste MD Eosinophils/100 WBC (Bld) 3.2 % Normal [facility] Comment on above: Performed By: #### 1 0231, 6399 #### [facility] of [place] [address] Private Pilot: Simeon Celeste MD Erythrocyte distribution width (RBC) [Ratio] 12.6 % Normal 11.0-15.0 [facility] Comment on above: Performed By: #### 1 0231, 6399 #### [facility] of [place] [address] Private Pilot: Simeon Celeste MD Hematocrit (Bld) [Volume fraction] 48.7 % Normal 38.5-50.0 [facility] Comment on above: Performed By: #### 1 0231, 6399 #### [facility] of [address], [address] [place] [address] Private Pilot: Simeon Celeste MD Hemoglobin (Bld) [Mass/Vol] 16.0 g/dL Normal 13.2-17.1 [facility] Comment on above: Performed By: #### 1 0231, 6399 #### [facility] [place] [address] Private Pilot: Simeon Celeste MD Lymphocytes (Bld) [#/Vol] 1.599 10*3/uL Normal 850-3900 [facility] Comment on above: Performed By: #### 1 023, 6399 #### [facility] [place] [address] Private Pilot: Simeon Celeste MD Lymphocytes/100 WBC (Bld) 20.5 % Normal [facility] Comment on above: Performed By: #### 1 023, 6399 #### [facility] [place] [address] Private Pilot: Simeon Celeste MD MCH (RBC) [Entitic mass] 30.2 pg Normal 27.0-33.0 [facility] Comment on above: Performed By: #### 1 023, 6399 #### [facility] [place] [address] Private Pilot: Simeon Celeste MD MCHC (RBC) [Mass/Vol] 32.9 g/dL Normal 32.0-36.[address] [facility] Comment on above: Result Comment: For adults, a slight decrease in the calculated MCHC value (in the range of 30 to 32 g/dL) is most likely not clinically significant; however, it should be interpreted with caution in correlation with other red cell parameters and the patient's clinical condition. Performed By: #### 1 0231, 6399 #### [facility] of [place] [address] Private Pilot: Simeon Celeste MD MCV (RBC) [Entitic vol] 91.9 fL Normal 80.0-100.0 [facility] Comment on above: Performed By: #### 1 023, 6399 #### [facility] of [address], [address] [place] [address] Private Pilot: Simeon Celeste MD Monocytes (Bld) [#/Vol] 0.749 10*3/uL Normal 200-950 [facility] Comment on above: Performed By: #### 1 0231, 6399 #### [facility] of [address], [address] [place] [address] Private Pilot: Simeon Celeste MD Monocytes/100 WBC (Bld) 9.6 % Normal [facility] Comment on above: Performed By: #### 1 0231, 6399 #### [facility] of [address], [address] [place] [address] Private Pilot: Simeon Celeste MD Neutrophils (Bld) [#/Vol] 5.132 10*3/uL Normal 8224-2583 [facility] Comment on above: Performed By: #### 1 0231, 6399 #### [facility] of [address], [address] [place] [address] Private Pilot: Simeon Celeste MD Neutrophils/100 WBC (Bld) 65.8 % Normal [facility] Comment on above: Performed By: #### 1 0231, 6399 #### [facility] of [address], [address] [place] [address] Private Pilot: Simeon Celeste MD Platelet mean volume (Bld) [Entitic vol] 9.2 fL Normal 7.5-12.5 [facility] Comment on above: Performed By: #### 1 0231, 6399 #### [facility] of [address], [address] [place] [address] Private Pilot: Simeon Celeste MD Platelets (Bld) [#/Vol] 244 10*3/uL Normal 140-400 [facility] Comment on above: Performed By: #### 1 0231, 6399 #### [facility] of [address], [address] [place] [address] Private Pilot: Simeon Celeste MD RBC (Bld) [#/Vol] 5.30 10*6/uL Normal 4.20-5.80 [facility] Comment on above: Performed By: #### 1 0231, 6399 #### [facility] of [place] [address] Private Pilot: Simeon Celeste MD WBC (Bld) [#/Vol] 7.8 10*3/uL Normal 3.8-10.8 [facility] Comment on above: Performed By: #### 1 0231, 6399 #### [facility] of [place] [address] Private Pilot: Simeon Celeste MD [facility] 01-04-2025 Albumin [Mass/Vol] 4.7 g/dL Normal 3.6-5.1 [facility] Comment on above: Performed By: #### 1 230, 6399 #### [facility] of [place] [address] Private Pilot: Simeon Celeste MD Albumin/Globulin [Mass ratio] 2.0 {ratio} Normal 1.0-2.5 [facility] Comment on above: Performed By: #### 1 230, 6399 #### [facility] of [place] [address] Private Pilot: Simeon Celeste MD ALP [Catalytic activity/Vol] 84 U/L Normal 35-144 [facility] Comment on above: Performed By: #### 1 1, 6399 #### [facility] of [place] [address] Private Pilot: Simeon Celeste MD ALT [Catalytic activity/Vol] 27 U/L Normal 9-46 [facility] Comment on above: Performed By: #### 1 0231, 6399 #### [facility] of [place] [address] Private Pilot: Simeon Celeste MD AST [Catalytic activity/Vol] 22 U/L Normal 10-35 [facility] Comment on above: Performed By: #### 1 0231, 6399 #### [facility] of [address], [address] [place] [address] Private Pilot: Simeon Celeste MD Bilirubin [Mass/Vol] 1.0 mg/dL Normal 0.2-1.2 [facility] Comment on above: Performed By: #### 1 0231, 6399 #### [facility] of [address], [address] [place] [address] Private Pilot: Simeon Celeste MD BUN/CREATININE RATIO SEE NOTE: Normal 6-22 [facility] Comment on above: Result Comment: Not Reported: BUN and Creatinine are within reference range. Performed By: #### 1 0231, 6399 #### [facility] of [address], [address] [place] [address] Private Pilot: Simeon Celeste MD Calcium [Mass/Vol] 9.3 mg/dL Normal 8.6-10.3 [facility] Comment on above: Performed By: #### 1 0231, 6399 #### [facility] of [address], [address] [place] [address] Private Pilot: Simeon Celeste MD Chloride [Moles/Vol] 104 mmol/L Normal 98-110 [facility] Comment on above: Performed By: #### 1 0231, 6399 #### [facility] of [address] , [address] [place] [address] Private Pilot: Simeon Celeste MD CO2 [Moles/Vol] 27 mmol/L Normal 20-32 [facility] Comment on above: Performed By: #### 1 0231, 6399 #### [facility] of [address], [address] [place] [address] Private Pilot: Simeon Celeste MD Creatinine [Mass/Vol] 0.93 mg/dL Normal 0.70-1.[address] [facility] Comment on above: Performed By: #### 1 0231, 6399 #### [facility] of [address], [address] [place] [address] Private Pilot: Simeon Celeste MD GFR/1.73 sq M.predicted among non-blacks MDRD (S/P/Bld) [Vol rate/Area] 89 mL/min/{1.73_m2} Normal > OR = 60 [facility] Comment on above: Performed By: #### 1 0231, 6399 #### [facility] [place] [address] Private Pilot: Simeon Celeste MD Globulin (S) [Mass/Vol] 2.3 g/dL Normal 1.9-3.7 [facility] Comment on above: Performed By: #### 1 0231, 6399 #### [facility] [place] [address] Private Pilot: Simeon Celeste MD Glucose [Mass/Vol] 105 mg/dL High 65-99 [facility] Comment on above: Result Comment: Fasting reference interval For someone without known diabetes, a glucose value between 100 and 125 mg/dL is consistent with prediabetes and should be confirmed with a follow-up test. Performed By: #### 1 0231, 6399 #### [facility] [place] [address] Private Pilot: Simeon Celeste MD Potassium [Moles/Vol] 4.0 mmol/L Normal 3.5-5.[address] [facility] Comment on above: Performed By: #### 1 0231, 6399 #### [facility] [place] [address] Private Pilot: Simeon Celeste MD Protein [Mass/Vol] 7.0 g/dL Normal 6.1-8.1 [facility] Comment on above: Performed By: #### 1 0231, 6399 #### [facility] [place] [address] Private Pilot: Simeon Celeste MD Sodium [Moles/Vol] 141 mmol/L Normal 135-146 [facility] Comment on above: Performed By: #### 1 0231, 6399 #### [facility] [address], [address] [place] [address] Private Pilot: Simeon Celeste MD Urea nitrogen [Mass/Vol] 22 mg/dL Normal 7-25 [facility] Comment on above: Performed By: #### 1 0231, 6399 #### [facility] [address], [address] [place] [address] Private Pilot: Simeon Celeste MD TSH W/REFLEX TO FT4on 2024 TSH W/REFLEX TO FT4 1.50 mIU/L Normal 0.40-4.50 [facility] Comment on above: Performed By: #### 1 0231, 6399 #### [facility] [address], [address] [place] [address] Private Pilot: Simeon Celeste MD Laboratory - Chemistry and C hemistry - challengeon 01-01-2025 Albumin [Mass/Vol] 4.7 g/dL Normal 3.6 - 5.1 g/dL [facility], [facility] [employer], [facility]. Albumin/Globulin [Mass ratio] 2.0 {ratio} Normal 1.0 - 2.5 [facility], [facility].; [employer] ALP [Catalytic activity/Vol] 84 U/L Normal 35 - 144 U/L [facility], [facility].; [employer] ALT [Catalytic activity/Vol] 27 U/L Normal 9 - 46 U/L [facility], [facility].; [employer] AST [Catalytic activity/Vol] 22 U/L Normal 10 - 35 U/L [facility] [employer], [facility].; [employer], [employer]. Bilirubin [Mass/Vol] 1.0 mg/dL Normal 0.2 - 1 .2 mg/dL [place] [facility], [facility].; [employer] Calcium [Mass/Vol] 9.3 mg/dL Normal 8.6 - 10. 3 mg/dL [place] [facility], [facility].; [employer] Chloride [Moles/Vol] 104 mmol/L Normal 98 - 11 0 mmol/L [place] [facility], [facility].; [employer], [employer]. CO2 [Moles/Vol] 27 mmol/L Normal 20 - 32 mmol/L [facility]. Creatinine [Mass/Vol] 0.93 mg/dL Normal 0.70 - 1.35 mg/dL [facility], [facility]. GFR/1.73 sq M.predicted among non-blacks MDRD (S/P/Bld) [Vol rate/Area] 89 mL/min/{1.73_m2} Normal [facility].; [place], [facility] Glucose [Mass/Vol] 105 mg/dL Abnormal 65 - 99 mg/dL [facility], [facility]. Potassium [Moles/Vol] 4.0 mmol/L Normal 3.5 - 5.3 mmol/L [facility].; [facility], [facility]. Protein [Mass/Vol] 7.0 g/dL Normal 6.1 - 8.1 g/dL [facility].; [facility] [employer], [facility]. Sodium [Moles/Vol] 141 mmol/L Normal 135 - 146 mmol/L [facility].; [facility] [employer], [facility]. Urea nitrogen [Mass/Vol] 22 mg/dL Normal 7 - 25 mg/dL [facility].; [facility], [facility]. Laboratory - Hematology and Cell countson 01-01-2025 Basophils (Bld) [#/Vol] 0.07 10*3/uL Normal 0 - 200 {cells/uL} [facility].; [facility] [employer] [facility]. Basophils/100 WBC (Bld) 0.9 % Normal [facility].; [facility]. Eosinophils (Bld) [#/Vol] 0.25 10*3/uL Normal 15 - 500 {cells/uL} [facility].; [facility], [facility]. Eosinophils/100 WBC (Bld) 3.2 % Normal [facility].; [facility] [employer], [facility]. Erythrocyte distribution width (RBC) [Ratio] 12.6 % Normal 11.0 - 15.0 % [facility].; [place] [employer], [employer]. Hematocrit (Bld) [Volume fraction] 48.7 % Normal 38.5 - 50.0 % [facility].; [facility], [facility] Hemoglobin (Bld) [Mass/Vol] 16.0 g/dL Normal 13.2 - 17.1 g/dL [facility].; [facility], [facility] Lymphocytes (Bld) [#/Vol] 1.599 10*3/uL Normal 850 - 3900 {cells/uL} [facility].; [facility], [facility] Lymphocytes/100 WBC (Bld) 20.5 % Normal [facility].; [facility], [facility]. MCH (RBC) [Entitic mass] 30.2 pg Normal 27.0 - 33.0 pg [facility].; [facility], [facility]. MCHC (RBC) [Mass/Vol] 32.9 g/dL Normal 32.0 - 36.0 g/dL [facility], [facility].; [facility], [facility]. MCV (RBC) [Entitic vol] 91.9 fL Normal 80.0 - 100.0 fL [facility].; [facility], [facility]. Monocytes (Bld) [#/Vol] 0.749 10*3/uL Normal 200 - 950 {cells/uL} [facility], [facility].; [facility], [facility]. Monocytes/100 WBC (Bld) 9.6 % Normal [facility], [facility].; [facility], [facility]. Neutrophils (Bld) [#/Vol] 5.132 10*3/uL Normal 1500 - 7800 {cells/uL} [facility].; [facility] [employer], [facility]. Neutrophils/100 WBC (Bld) 65.8 % Normal [facility].; [facility], [facility]. Platelet mean volume (Bld) [Entitic vol] 9.2 fL Normal 7.5 - 12.5 fL [facility].; [facility], [facility]. Platelets (Bld) [#/Vol] 244 10*3/uL Normal 140 - 400 [facility].; [facility], [facility]. RBC (Bld) [#/Vol] 5.30 10*6/uL Normal 4.20 - 5.8 0 {Million/uL} [facility]. WBC (Bld) [#/Vol] 7.8 10*3/uL Normal 3.8 - 10.8 [place] [employer]. No Panel Informationon 01-01 BUN/CREATININE RATIO SEE NOTE: Normal 6 - 22 [facility] [employer]. GLOBULIN 2.3 Normal 1.9 - 3.7 [place] [facility] [place] [facility]. TSH W/REFLEX TO FT4 1.50 {mIU/L} Normal 0.40 - 4 .50 {mIU/L} [employer] Cardiology Visit Reporton Cardiology Visit Report [facility] [address] [place], [place] [address] OFFICE VISIT Date of Service: 11/07/24 MR#: [id number] Acct: [id number] Name: ANDREY VIERA Rep #: [id number] : 1955 Provider: NANCY lance Age/Sex: 68/M [place] [facility] Status: Signed HPI HPI History of Present Illness Details: ANDREY VIERA, is a 68 M who presents to the office today for a cardiovascular follow-up. He has a history of coronary artery disease with myocardial infarction in 1999 in 2008. Heart catheterization in 2009 demonstrated total occlusion of his proximal RCA, moderate disease of his LAD and moderate disease of his circumflex and ramus intermedius with collaterals from left to right and borderline systolic function. He had a catheterization in 2011 which demonstrated left main trunk normal, LAD mild disease, RCA dominant total occlusion, circumflex nondominant moderate 40% stenosis proximal. Distal RCA filled left to right collaterals. Pharmacologic stress test at that time demonstrated fixed perfusion defect in the RCA territory. Based upon this test he was started on antianginals. He continued to complain of chest discomfort and shortness of breath during office visit in July 2017. He underwent a heart cath which demonstrated moderate artery disease involving the left circumflex artery and a previously stented vessel and a totally occluded right coronary artery with left to right collaterals. Medical therapy was recommended. Stress echo in 2023 was negative for ischemia at a high workload. From a cardiac standpoint, the patient is doing well. He denies any palpitations, chest pain, pressure or heaviness. He denies SOB, Orthopnea, and PND. He does not have bleeding issues; no blood in urine, stool, or nosebleeds. He denies any decrease in energy level, myalgias, or claudication. He does not have edema, or sudden weight gain. He denies lightheadedness, dizziness, syncopal or near syncopal episodes, and headaches. He states that his blood pressures have been elevated at home. Intake Vital Signs 02/07/24 15:21 11/07/24 06:07 Height 5 ft 5 in 5 ft 5 in Weight: 218 lb BMI 36.2 BP 144/81 H Blood Pressure Location Lt brachial Position Sitting Respiration 18 Pulse 50 L Pulse Source Monitor Pulse Oximetry (%) 95 Intake Visit Reasons: 9 M [employer] Supervisor Required: No Is patient in pain?: No Allergies Tcnfjzh-DIQ-WnY Reductase Inhibitor (Cfzcour-Hpn-Qqp Reductase Inhibitor) Allergy (Verified 11/07/24 14:22) all statins except crestor caused itching Medications ???Medication ???Instructions ???Recorded ???Confirmed ???Type aspirin 81 mg tablet,delayed 81 mg PO QDAY 06/08/17 11/07/24 Hi story release amlodipine 5 mg tablet 5 mg PO DAILY #90 tabs 11/07/24 Rx clopidogrel 75 mg tablet (Plavix) 75 mg PO QDAY #90 tabs 11/07/24 0 11/07/24 Rx hydrochlorothiazide 25 mg tablet 25 mg PO DAILY #90 tabs 11/07/24 0 11/07/24 Rx meloxicam 7.5 mg tablet 7.5 mg PO QDAY PRN 11/07/24 History rosuvastatin 20 mg tablet (Crestor) 20 mg PO QDAY #90 tabs 11/07/24 11/07/24 Rx Have you fallen in the past year?: No PFSH Medical History Essential (primary) hypertension Hyperlipidemia Atrioventricular block, Mobitz type 1, Wenckebach History of non-ST elevation myocardial infarction (NSTEMI) Atherosclerotic heart disease of [place] coronary artery with other forms of angina pectoris Surgical History History of appendectomy History of left heart catheterization (08/2017) History of coronary artery stent placement (08/06/08) Family History Father COPD (chronic obstructive pulmonary disease) Mother CAD (coronary artery disease) Myocardial infarction Social History Smoking Status: Former smoker Tobacco: How many years used: 35 how long ago did patient quit smokin, 1ppd second hand exposure: Yes alcohol intake: never substance use type: does not use caffeine: No what type of physical activity do you participate in: none seatbelt use: always do you feel safe at home: Yes ROS Const Const: Negative for fatigue, weakness, headache(s) or frequent falls Eyes Eyes: Negative for blurry vision ENT ENT: Negative for headache(s), dizziness or Nosebleed/epistaxis Cardio Chest Pain: No Palpitations: No Edema: None Muscle aches with walking: None Resp Respiratory: Negative for SOB with activity, SOB at rest or SOB orthopnea SOB lying down GI GI: Negative nausea, vomiting, heartburn, bright, red blood in stools or black,tarry stools (more content not included)... Normal [facility] Cardiology Visit Reporton Cardiology Visit Report [facility] [address] [place] [address]. [address] [place] [address] OFFICE VISIT Date of Service: 02/07/24 MR#: [id number] Acct: [id number] Name: ANDREY VIERA Rep #: [id number] : 1955 Provider: KARLA Burnette Age/Sex: 68/M [place] [facility] [place]: Signed [facility] History of Present Illness Details: ANDREY VIERA, is a 68 M who presents to the office today for a cardiovascular follow-up. He has a history of coronary artery disease with myocardial infarction in 1998 in 2008. Heart catheterization in 2009 demonstrated total occlusion of his proximal RCA, moderate disease of his LAD and moderate disease of his circumflex and ramus intermedius with collaterals from left to right and borderline systolic function. He had a catheterization in 2011 which demonstrated left main trunk normal, LAD mild disease, RCA dominant total occlusion, circumflex nondominant moderate 40% stenosis proximal. Distal RCA filled left to right collaterals. Pharmacologic stress test at that time demonstrated fixed perfusion defect in the RCA territory. Based upon this test he was started on antianginals. He continued to complain of chest discomfort and shortness of breath during office visit in July 2017. He underwent a heart cath which demonstrated moderate artery disease involving the left circumflex artery and a previously stented vessel and a totally occluded right coronary artery with left to right collaterals. Medical therapy was recommended. Stress echo in 2023 was negative for ischemia at a high workload. From a cardiac standpoint, patient is doing well. He does not have any chest discomfort/heaviness/t ightness. His exercise tolerance is stable for his age. He does not have any worsening symptoms of shortness of breath. He denies any PND. He does not have any orthopnea. He does not have any symptoms of congestive heart failure. He does not have any palpitations that he is aware of. He does not have any lightheadedness or dizziness. He does not have any near-syncope or syncope. He does not have any symptoms of claudication. Intake Vital Signs 09/14/23 15:31 02/07/24 15:21 Height 5 ft 5 in 5 ft 5 in Weight: 223 lb 218 lb BMI 37.0 36.2 BP 156/90 H 147/84 H Blood Pressure Location Lt brachial Lt brachial Position Sitting Sitting Respiration 18 18 Pulse 55 L 64 Pulse Source Monitor Monitor Pulse Oximetry (%) 94 92 Intake Visit Reasons: 3 M FU [employer] Required: No Is patient in pain?: No Allergies Ghokgtp-OVP-LbU Reductase Inhibitor (Subzexy-Zwr-Mzf Reductase Inhibitor) Allergy (Verified 02/07/24 15:21) all statins except crestor caused itching Medications ???Medication ???Instructions ???Recorded ???Confirmed ???Type aspirin 81 mg tablet,delayed 81 mg PO QDAY 06/08/17 02/07/24 History release rosuvastatin 20 mg tablet (Crestor) 20 mg PO QDAY #90 tabs 11/23/22 02/07/24 Rx amlodipine 5 mg tablet 5 mg PO DAILY 09/14/23 02/07/24 History hydrochlorothiazide 25 mg tablet 25 mg PO DAILY #90 tabs 09/14/23 02/07/24 Rx Have you fallen in the past year?: No Nurse's Note: no list, does not know what medications he is taking [facility] Medical History Essential (primary) hypertension Hyperlipidemia Atrioventricular block, Mobitz type 1, Wenckebach History of non-ST elevation myocardial infarction (NSTEMI) Atherosclerotic heart disease of [place] coronary artery with other forms of angina pectoris Surgical History History of appendectomy History of left heart catheterization (08/2017) History of coronary artery stent placement (08/06/08) Family History Father COPD (chronic obstructive pulmonary disease) Mother CAD (coronary artery disease) Myocardial infarction Social History Smoking Status: Former smoker Tobacco: How many years used: 35 how long ago did patient quit smokin, 1ppd second hand exposure: Yes alcohol intake: never substance use type: does not use caffeine: No what type of physical activity do you participate in: none seatbelt use: always do you feel safe at home: Yes ROS Const Const: Negative for fatigue, weakness, fever(s) or headache(s) Eyes Eyes: Negative for blind spots, loss of peripheral vision or transient loss of vision ENT ENT: Negative for headache(s), dizziness, tinnitus, Nosebleed/epistaxis or balance problems Cardio Chest Pain: No Palpitations: No Edema: None Muscle aches with walking: None Resp Respiratory: Negative for SOB with activity, SOB at rest, SOB orthopnea SOB lying down or Cough GI (more content not included)... Normal [facility] Laboratory - Chemistry and C hemistry - challengeon 02-01-2024 Albumin [Mass/Vol] 3.8 g/dL Normal 3.4 - 5.0 g/dL [facility]. Albumin [Mass/Vol] 1.3 g/dL Normal 0.9 - 1.6 [facility]; [facility]. ALP [Catalytic activity/Vol] 90 U/L Normal 46 - 116 U/L [facility].; [facility]. ALT [Catalytic activity/Vol] 32 U/L Normal 16 - 63 U/L [facility].; [facility] Anion gap [Moles/Vol] 9 mmol/L Abnormal 10 - 2 0 mmol/L [facility]; [facility]. AST [Catalytic activity/Vol] 20 U/L Normal 15 - 37 U/L [facility]; [facility] Bilirubin [Mass/Vol] 1.1 mg/dL Abnormal 0.2 - 1 .0 mg/dL [facility]; [facility], [facility] Calcium [Mass/Vol] 9.1 mg/dL Normal 8.5 - 10. 1 mg/dL [facility]; [facility]. Chloride [Moles/Vol] 104 mmol/L Normal 98 - 10 7 mmol/L [facility]; [facility] Cholesterol [Mass/Vol] 175 mg/dL Normal 0 - 2 40 mg/dL [facility]; [facility], [facility]. Cholesterol in HDL [Mass or moles/Vol] 69 mg/dL Abnormal 40 - 60 mg/dL [facility]; [facility]. Cholesterol in LDL [Mass/Vol] 94 mg/dL Normal 0 - 129 mg/dL [facility].; [facility] Cholesterol.total/Chol esterol in HDL [Mass ratio] 2.5 {ratio} Normal 0.0 - 5.0 [facility]; [facility] CO2 [Moles/Vol] 31.9 mmol/L Normal 21.0 - 32.0 mmol/L [facility]; [facility] Comprehensive metabolic 2000 panel CMP with eGFR Normal [facility]; [facility] Creatinine [Mass/Vol] 0.99 mg/dL Normal 0.70 - 1.30 mg/dL [facility], [facility] [place] [facility]. GFR/1.73 sq M.predicted among blacks MDRD (S/P/Bld) [Vol rate/Area] mL/min/{1.73_m2} Normal 60 - 999 {ML/MINUTE} [facility]. GFR/1.73 sq M.predicted MDRD (S/P/Bld) [Vol rate/Area] mL/min/{1.73_m2} Normal 60 - 999 {ML/MINUTE} [facility], [facility].; [place] [facility]. Globulin (S) [Mass/Vol] 3.0 g/dL Normal 1.5 - 3.8 g/dL [facility].; [place] [facility]. Glucose [Mass/Vol] 114 mg/dL Abnormal 74 - 106 mg/dL [facility].; [place] [facility]. Lipid 1996 panel LIPID PROFILE Normal [facility] [place] [facility]. Potassium [Moles/Vol] 3.5 mmol/L Normal 3.5 - 5.1 mmol/L [facility].; [place] [facility]. Prostate specific Ag [Mass/Vol] 0.65 ng/mL Normal 0.00 - 4.00 ng/mL [facility], [facility].; [place] [facility]. Protein [Mass/Vol] 6.8 g/dL Normal 6.4 - 8.2 g/dL [facility], [facility].; [place] [employer], [facility]. Sodium [Moles/Vol] 141 mmol/L Normal 136 - 145 mmol/L [facility], [facility].; [place] [employer]. Triglyceride [Mass/Vol] 59 mg/dL Normal 0 - 150 mg/dL [facility].; [place] [facility]. Urea nitrogen [Mass/Vol] 21 mg/dL Abnormal 7 - 18 mg/dL [facility], [facility].; [place] [employer] Urea nitrogen/Creatinine [Mass ratio] 21 {ratio} Normal 0 - 30 {ratio} [facility].; [place] [facility] No Panel Informationon 01-31 AGE 68 {years} Normal [facility].; [facility]. Absolute lymphocyte countOrd ered By: Cristine Tai on 09-14-2023 Lymphocytes Auto (Unsp spec) [#/Vol] 1.89 10*3/uL 0.83-4.51 [facility] Automated lymphocyte count a s percentage of total leukocytesOrdered By: Cristine Tai on 09-14-2023 Lymphocytes/100 WBC Auto (Unsp spec) 23.5 % 19-41 [facility] Basophil percentageOrdered B y: Cristine Tai on 09-14-2023 Basophils/100 WBC (Bld) 0.9 % 0-1 [facility] Chloride [Moles/Vol] 112 mmol/L 98-107 [facility] Eosinophils/100 WBC (Bld) 4.9 % 0-5 [facility] Glucose [Mass/Vol] 92 mg/dL 74-106 [facility] Hemoglobin (Bld) [Mass/Vol] 14.4 g/dL 13.0-16.5 [facility] Monocytes/100 WBC (Bld) 11.0 % 0-10 [facility] Neutrophils (Bld) [#/Vol] 4.8 10*3/uL 2.0-7.7 [facility] Neutrophils/100 WBC (Bld) 59.2 % 47-70 [facility] Potassium [Moles/Vol] 4.0 mmol/L 3.5-5.1 [facility] Sodium [Moles/Vol] 143 mmol/L 136-145 [facility] WBC (Bld) [#/Vol] 8.0 10*3/uL 4.4-11.0 [facility] Determination of erythrocyte mean corpuscular volume (MCV)Ordered By: Cristine Tai on 09-14-2023 MCV (RBC) [Entitic vol] 88.4 fL 80-94 [facility] Erythrocyte distribution wid th ratioOrdered By: Cristine Tai on 09-14-2023 Erythrocyte distribution width (RBC) [Ratio] 12.6 % 11.6-14.6 [facility] Erythrocyte distribution wid th standard deviationOrdered By: Cristine Tai on 09-14-2023 Erythrocyte distribution width (RBC) [Entitic vol] 40.4 fL 35.1-43.9 [facility] Hematocrit Auto (Bld) [Volum e fraction]Ordered By: Cristine Tai on 09-14-2023 Hematocrit (Bld) [Volume fraction] 44.1 % 40-54 [facility] Immature granulocytes/100 WB C Auto (Bld)Ordered By: Cristine Tai on 09-14-2023 Immature granulocytes/100 WBC (Bld) 0.500 % 0.0-0.9 [facility] Comment on above: IG% - Immature Granu locytes (promyelocytes, myelocytes and metamyelocytes) > 1% indicates that a LEFT SHIFT is Present. Laboratory - Chemistry and C hemistry - challengeOrdered By: Cristine Tai on 09-14-2023 CO2 [Moles/Vol] 27.0 mmol/L 21.0-32.0 [facility] Natriuretic peptide B (Bld) [Mass/Vol] 40.5 pg/mL 0-100 [facility] Urea nitrogen/Creatinine [Mass ratio] 22.0 mg/mg 10-20 [facility] Laboratory - Hematology and Cell countsOrdered By: Cristine Tai on 09-14-2023 MCH (RBC) [Entitic mass] 28.9 pg 27.0-32.0 [facility] MCHC (RBC) [Mass/Vol] 32.7 g/dL 32-36 [facility] Nucleated RBC/100 WBC (Bld) [Ratio] 0 % 0-5 [facility] Platelet mean volume (Bld) [Entitic vol] 9.4 fL 6.2-12.0 [facility] Platelets (Bld) [#/Vol] 237 10*3/uL 150-450 [facility] No Panel InformationOrdered By: Cristine Tai on 09-14-2023 Estimated GFR (MDRD) Amer 101 mL/min >60 [facility] Comment on above: GFR Calc Estimated GFR (MDRD) Non-Af Amer 84 mL/min >60 [facility] Comment on above: Non- GFR Calc RBC Auto (Bld) [#/Vol]Ordere d By: Cristine Tai on 09-14-2023 RBC (Bld) [#/Vol] 4.99 10*6/uL 4.6-6.2 [facility] Serum or plasma calcium kayla urement (mass/volume)Ordered By: Cristine Tai on 09-14-2023 Calcium [Mass/Vol] 8.9 mg/dL 8.5-10.1 [facility] Serum or plasma creatinine m easurement (mass/volume)Ordered By: Cristine Tai on 09-14-2023 Creatinine [Mass/Vol] 0.95 mg/dL 0.70-1.30 [facility] Comment on above: The validity of the calculated GFR & GFRAA in patients over 70 years has not been determined. Clinical correlation is essential. Serum or plasma urea nitroge n measurement (mass/volume)Ordered By: Cristine Tai on 09-14-2023 Urea nitrogen [Mass/Vol] 21 mg/dL - [facility] Thin prep Papanicolaou smear with manual screeningOrdered By: Cristine Tai on 09-14-2023 Thin prep Papanicolaou smear with manual screening 4 11-13 [facility] Whole blood hemoglobin A1c/t otal hemoglobin ratio (mass fraction)Ordered By: Cristine Tai on 09-14-2023 HbA1c (Bld) [Mass fraction] 5.7 % 3.8-5.6 [facility] Comment on above: Normal < 5.7 % Predi abetic 5.7 - 6.4 % Diabetic >or= 6.5 % Please note range changes. Laboratory - Chemistry and C hemistry - challengeon 02-24-2022 Albumin [Mass/Vol] 4.4 g/dL Normal 3.6 - 5.1 g/dL [facility], [facility]. Albumin/Globulin [Mass ratio] 2.3 {ratio} Normal 1.0 - 2.5 [facility], [facility]. ALP [Catalytic activity/Vol] 78 U/L Normal 35 - 144 U/L [facility], [facility]. ALT [Catalytic activity/Vol] 23 U/L Normal 9 - 46 U/L [facility], [facility].; [place] [facility]. AST [Catalytic activity/Vol] 20 U/L Normal 10 - 35 U/L [facility], [facility].; [facility]. Bilirubin [Mass/Vol] 1.1 mg/dL Normal 0.2 - 1 .2 mg/dL [facility]. Calcium [Mass/Vol] 9.3 mg/dL Normal 8.6 - 10. 3 mg/dL [facility].; [facility]. Chloride [Moles/Vol] 108 mmol/L Normal 98 - 11 0 mmol/L [facility].; [facility] Cholesterol [Mass/Vol] 146 mg/dL Normal [facility], [facility] Cholesterol in HDL [Mass/Vol] 70 mg/dL Normal [facility].; [facility]. Cholesterol in LDL [Mass/Vol] 62 mg/dL Normal [facility].; [facility]. CO2 [Moles/Vol] 25 mmol/L Normal 20 - 32 mmol/L [facility].; [place] [facility]. Creatinine [Mass/Vol] 1.02 mg/dL Normal 0.70 - 1.35 mg/dL [facility], [facility].; [facility]. GFR/1.73 sq M.predicted among non-blacks MDRD (S/P/Bld) [Vol rate/Area] 82 mL/min/{1.73_m2} Normal [facility], [facility].; [facility] Glucose [Mass/Vol] 105 mg/dL Abnormal 65 - 99 mg/dL [facility], [facility].; [place] [facility] Potassium [Moles/Vol] 4.1 mmol/L Normal 3.5 - 5.3 mmol/L [facility].; [place] [facility] Protein [Mass/Vol] 6.3 g/dL Normal 6.1 - 8.1 g/dL [facility], [facility].; [place] [employer] [employer] Sodium [Moles/Vol] 142 mmol/L Normal 135 - 146 mmol/L [facility], [facility].; [place] [facility] Triglyceride [Mass/Vol] 64 mg/dL Normal [facility]; [facility] Urea nitrogen [Mass/Vol] 22 mg/dL Normal 7 - 25 mg/dL [facility]; [facility] No Panel Informationon 02-24 BUN/CREATININE RATIO NOT APPLICABLE Normal 6 - 22 [facility]; [facility] CHOL/HDLC RATIO 2.1 Normal [facility]; [facility] GLOBULIN 1.9 Normal 1.9 - 3.7 [facility]; [facility] NON HDL CHOLESTEROL 76 Normal [facility]; [facility] PSA, TOTAL 0.37 ng/mL Normal [facility]; [place] [facility] Laboratory - Chemistry and C hemistry - challengeon 12-02-2014 Albumin [Mass/Vol] 4.3 g/dL Normal 3.6 - 5.1 g/dL [facility]; [facility] Albumin/Globulin [Mass ratio] 2.0 {ratio} Normal 1.0 - 2.5 [facility]; [facility] ALP [Catalytic activity/Vol] 105 U/L Normal 40 - 115 U/L [facility]; [place] [facility]. ALT [Catalytic activity/Vol] 29 U/L Normal 9 - 46 U/L [facility]; [facility] AST [Catalytic activity/Vol] 33 U/L Normal 10 - 35 U/L [facility]; [place] [facility]. Bilirubin [Mass/Vol] 0.8 mg/dL Normal 0.2 - 1 .2 mg/dL [facility]; [facility] Calcium [Mass/Vol] 9.3 mg/dL Normal 8.6 - 10. 3 mg/dL [facility].; [place] [facility]. Chloride [Moles/Vol] 106 mmol/L Normal 98 - 11 0 mmol/L [facility]; [place] [facility] CO2 [Moles/Vol] 24 mmol/L Normal 19 - 30 mmol/L [facility].; [facility]. Creatinine [Mass/Vol] 1.10 mg/dL Normal 0.70 - 1.33 mg/dL [facility].; [facility]. GFR/1.73 sq M.predicted among blacks MDRD (S/P/Bld) [Vol rate/Area] 85 {ML/MIN/1.73M2} Normal [facility].; [facility]. GFR/1.73 sq M.predicted MDRD (S/P/Bld) [Vol rate/Area] 74 {ML/MIN/1.73M2} Normal [facility].; [facility], [facility] Globulin (S) [Mass/Vol] 2.2 g/dL Normal 1.9 - 3.7 g/dL [facility].; [place] [facility], [facility] Glucose [Mass/Vol] 106 mg/dL Abnormal 65 - 99 mg/dL [facility].; [facility]. Potassium [Moles/Vol] 4.4 mmol/L Normal 3.5 - 5.3 mmol/L [facility].; [place] [facility], [facility]. Protein [Mass/Vol] 6.5 g/dL Normal 6.1 - 8.1 g/dL [facility].; [place] [facility]. Sodium [Moles/Vol] 140 mmol/L Normal 135 - 146 mmol/L [facility].; [place] [facility]. TSH Qn 1.42 m[IU]/L Normal 0.40 - 4.50 {mIU/L} [facility].; [place] [facility]. Urea nitrogen [Mass/Vol] 16 mg/dL Normal 7 - 25 mg/dL [facility].; [place] [employer]. Urea nitrogen/Creatinine [Mass ratio] 14.9 mg/mg Normal 6 - 22 [facility].; [place] [employer]. Laboratory - Hematology and Cell countson 12-02-2014 Basophils (Bld) [#/Vol] 50 {Cells}/uL Normal 0 - 200 {Cells}/uL [facility] [employer] [place] [employer]. Basophils/100 WBC (Bld) 1 % Normal [facility].; [place] [facility]. Eosinophils (Bld) [#/Vol] 280 {Cells}/uL Normal 15 - 500 {Cells}/uL [facility].; [place] [employer]. Eosinophils/100 WBC (Bld) 5 % Normal [facility].; [place] [facility], [facility] Erythrocyte distribution width (RBC) [Ratio] 14.0 % Normal 11.0 - 15.0 % [facility].; [place] [facility]. Hematocrit (Bld) [Volume fraction] 44.3 % Normal 38.5 - 50.0 % [place] [facility].; [place] [facility]. Hemoglobin (Bld) [Mass/Vol] 14.5 g/dL Normal 13.2 - 17.1 g/dL [facility].; [place] [facility]. Lymphocytes (Bld) [#/Vol] 2170 {Cells}/uL Normal 850 - 3900 {Cells}/uL [facility].; [place] [employer]. Lymphocytes/100 WBC (Bld) 38 % Normal [place] [facility].; [place] [facility]. MCH (RBC) [Entitic mass] 28.1 pg Normal 27.0 - 33.0 PG [place] [facility].; [place] [employer]. MCHC (RBC) [Mass/Vol] 32.7 g/dL Normal 32.0 - 36.0 g/dL [facility].; [place] [employer]. MCV (RBC) [Entitic vol] 85.8 fL Normal 80.0 - 100.0 fL [place] [facility].; [place] [employer]. Monocytes (Bld) [#/Vol] 650 {Cells}/uL Normal 200 - 950 {Cells}/uL [place] [employer].; [place] [employer], [facility]. Monocytes/100 WBC (Bld) 11 % Normal [place] [facility].; [place] [employer]. Neutrophils (Bld) [#/Vol] 2550 {Cells}/uL Normal 1500 - 7800 {Cells}/uL [place] [employer] Neutrophils/100 WBC (Bld) 45 % Normal [facility].; [place] [employer]. Platelet mean volume (Bld) [Entitic vol] 8.4 fL Normal 7.5 - 11.5 fL [facility].; [place] [facility]. Platelets (Bld) [#/Vol] 232 10*3/uL Normal 140 - 400 10*3/uL [facility].; [place] [facility]. RBC (Bld) [#/Vol] 5.16 10*6/uL Normal 4.20 - 5.8 0 10*6/uL [facility].; [place] [employer], [facility]. WBC (Bld) [#/Vol] 5.7 10*3/uL Normal 3.8 - 10.8 10*3/uL [place] [facility].; [employer]. Vital Signs Date Time Vital Sign Value Performing Clinician Facility 02-09-2025 09:24-0400 Body height 163.83 cm [facility] [employer]. 02-09-2025 09:24-0400 Body mass index (BMI) [Ratio] 38.7 kg/m2 Debby Mario [facility]ocandice [facility].; [place] [employer]. 02-09-2025 09:24-0400 Body surface area Derived from formula 2.08 m2 [facility] Edwards [facility].; [place] [employer]. 02-09-2025 09:24-0400 Body temperature 97.8 [degF] Debby Edwards [facility].; [employer] Comment on above: Method: Tympanic 02-09-2025 09:24-0400 Body weight 103.87 kg Debby Jerry [facility].; [employer]. 02-09-2025 09:24-0400 Diastolic blood pressure 80 mm[Hg] [facility] [employer]. Comment on above: Patient Position: Sitting; Cuff Location : Right Arm; Cuff Size: Large 02-09-2025 09:24-0400 Heart rate 59 /min Debby Edwards [facility] Comment on above: Pattern: Regular 02-09-2025 09:24-0400 Systolic blood pressure 159 mm[Hg] Debby Edwards [facility] [employer] [employer] Comment on above: Patient Position: Sitting; Cuff Location : Right Arm; Cuff Size: Large 01-01-2025 10:10-0400 Diastolic blood pressure 72 mm[Hg] Chastity Viola Ozuna PA-C Work Phone: [facility], [facility].; [place] [facility]. Comment on above: Patient Position: Sitting; Cuff Location : Left Arm; Cuff Size: Standard 01-01-2025 10:10-0400 Systolic blood pressure 134 mm[Hg] Chastity Viola Ozuna PA-C Work Phone: [facility], [facility].; [facility] [employer], [employer]. Comment on above: Patient Position: Sitting; Cuff Location : Left Arm; Cuff Size: Standard 01-01-2025 [id number] Body height 163.83 cm Bozena Mcfralane JAVA ARCHITECT [facility], [facility].; [facility]. 01-01-2025 09:11-0400 Body mass index (BMI) [Ratio] 37.35 kg/m2 Bozena Mcfarlane JAVA ARCHITECT [facility] 01-01-2025 [id number] Body surface area Derived from formula 2.05 m2 Bozena Mcfarlane JAVA ARCHITECT [facility], [facility].; [place] [facility]. 01-01-2025 [id number] Body weight 100.25 kg Bozenamarco Mcfarlane JAVA ARCHITECT [facility], [facility].; [place] [facility]. 01-01-2025 09:11-0400 Diastolic blood pressure 88 mm[Hg] Bozena Mcfarlane JAVA ARCHITECT [facility], [facility].; [employer], [employer]. Comment on above: Patient Position: Sitting; Cuff Location : Left Arm; Cuff Size: Standard 01-01-2025 09:11-0400 Heart rate 49 /min Bozena [place]ane LPN [facility] [employer]. Comment on above: Pattern: Regular 01-01-2025 09:11-0400 Systolic blood pressure 154 mm[Hg] Bozena Mcfarlane CHARITY [facility] [employer]. Comment on above: Patient Position: Sitting; Cuff Location : Left Arm; Cuff Size: Standard 06-17-2024 13:01-0500 Body height 163.83 cm Shelbie Ellis MA [place] [facility] [employer]. 06-17-2024 13:01-0500 Body mass index (BMI) [Ratio] 38.58 kg/m2 Shelbie Ellis [facility] [employer]. 06-17-2024 13:01-0500 Body surface area Derived from formula 2.08 m2 Shelbie Ellis MA [place] [facility] [employer]. 06-17-2024 13:010500 Body weight 103.56 kg Shelbie Ellis MA [place] [facility] [employer] 06-17-2024 13:01-0500 Diastolic blood pressure 79 mm[Hg] Shelbie Ellis MA [employer]. Comment on above: Patient Position: Sitting; Cuff Location : Left Arm; Cuff Size: Standard 06-17-2024 13:01-0500 Heart rate 75 /min Shelbie Ellis [facility] [employer] Comment on above: Pattern: Regular 06-17-2024 13:01-0500 Inhaled oxygen concentration 21 % Shelbie Ellis MA [employer] Comment on above: Room air 06-17-2024 13:01-0500 SaO2% (BldA) [Mass fraction] 95 % Shelbie Ellis MA [employer].; [employer]. 06-17-2024 13:01-0500 Systolic blood pressure 167 mm[Hg] Shelbie Ellis MA [employer].; [employer] Comment on above: Patient Position: Sitting; Cuff Location : Left Arm; Cuff Size: Standard 04-25-2024 11:04-0400 Body height 163.83 cm Shelbie Ellis MA [facility] [employer], [facility]. 04-25-2024 11:04-0400 Body mass index (BMI) [Ratio] 38.02 kg/m2 Shelbie Ellis MA [facility] [employer] 04-25-2024 11:04-0400 Body surface area Derived from formula 2.07 m2 Shelbie Ellis MA [facility] [employer], [facility]. 04-25-2024 11:04-0400 Body weight 102.06 kg Shelbie Ellis [facility] [place] [facility], [facility]. 04-25-2024 11:04-0400 Diastolic blood pressure 91 mm[Hg] Shelbie Ellis MA [facility] [employer]. Comment on above: Patient Position: Sitting; Cuff Location : Left Arm; Cuff Size: Standard 04-25-2024 11:04-0400 Heart rate 52 /min Shelbie Ellis MA [facility] [employer]. Comment on above: Pattern: Regular 04-25-2024 11:04-0400 Systolic blood pressure 183 mm[Hg] Shelbie Ellis MA [place] [facility] [employer]. Comment on above: Patient Position: Sitting; Cuff Location : Left Arm; Cuff Size: Standard 02-08-2024 15:36-0400 Body height 163.83 cm Vicky Lemus MA [place] [facility] [employer]. 02-08-2024 15:36-0400 Body mass index (BMI) [Ratio] 37.69 kg/m2 Vicky Lemus MA [place] [facility] [employer]. 02-08-2024 15:36-0400 Body surface area Derived from formula 2.06 m2 Vicky Lemus MA [place] [facility].; [employer], [employer]. 02-08-2024 15:36-0400 Body weight 101.15 kg Vicky Lemus MA [place] [facility] [employer]. 02-08-2024 15:36-0400 Diastolic blood pressure 76 mm[Hg] Vicky Lemus MA [facility], [facility].; [facility]. Comment on above: Patient Position: Sitting; Cuff Location : Left Arm; Cuff Size: Standard 02-08-2024 15:36-0400 Heart rate 60 /min Vicky Lemus MA [facility] Comment on above: Pattern: Regular 02-08-2024 15:36-0400 Systolic blood pressure 159 mm[Hg] Vicky Lemus MA [facility]. Comment on above: Patient Position: Sitting; Cuff Location : Left Arm; Cuff Size: Standard 09-14-2023 15:31-0400 Body height 165.1 cm PA Chastity Ozuna Work Phone: [facility] 09-14-2023 15:31-0400 Body mass index (BMI) [Ratio] 37 kg/m2 PA Chastity Ozuna Work Phone: [facility] 09-14-2023 15:31-0400 Body weight 101.15 kg PA Chastity Ozuna Work Phone: [facility] 09-14-2023 15:31-0400 Diastolic blood pressure 90 mm[Hg] PA Chastity Ozuna Work Phone: [facility] 09-14-2023 15:31-0400 Heart rate 55 /min PA Chastity Ozuna Work Phone: [facility] 09-14-2023 15:31-0400 Respiratory rate 18 /min PA Chastity Ozuna Work Phone: [facility] 09-14-2023 15:31-0400 SaO2% (BldA) [Mass fraction] 94 % PA Chastity Ozuna Work Phone: [facility] 09-14-2023 15:31-0400 Systolic blood pressure 156 mm[Hg] PA Chastity Ozuna Work Phone: [facility] 03-09-2023 15:15-0400 Diastolic blood pressure 76 mm[Hg] Chastity Viola Ozuna PA-C Work Phone: [facility]. Comment on above: Patient Position: Sitting; Cuff Location : Left Arm; Cuff Size: Standard 03-09-2023 15:15-0400 Systolic blood pressure 134 mm[Hg] Chastity Ozuna PA-C Work Phone: [facility] [employer]. Comment on above: Patient Position: Sitting; Cuff Location : Left Arm; Cuff Size: Standard 03-09-2023 13:56-0400 Body height 163.83 cm Vicky Lemus MA [facility]. 03-09-2023 13:56-0400 Body mass index (BMI) [Ratio] 37.52 kg/m2 Vicky Lemus MA [facility].; [facility]. 03-09-2023 13:56-0400 Body surface area Derived from formula 2.06 m2 Vicky Lemus MA [facility].; [place] [employer]. 03-09-2023 13:56-0400 Body weight 100.7 kg Vicky Lemus MA [facility] [place] [facility]. 03-09-2023 13:56-0400 Diastolic blood pressure 79 mm[Hg] Vicky Lemus MA [facility].; [employer]. Comment on above: Patient Position: Sitting; Cuff Location : Left Arm; Cuff Size: Standard 03-09-2023 13:56-0400 Heart rate 59 /min Vicky Lemus MA [facility] [employer]. Comment on above: Pattern: Regular 03-09-2023 13:56-0400 Systolic blood pressure 167 mm[Hg] Vicky Lemus MA [facility] [employer]. Comment on above: Patient Position: Sitting; Cuff Location : Left Arm; Cuff Size: Standard 02-28-2023 15:38-0400 Diastolic blood pressure 72 mm[Hg] Shelbie Ellis MA [facility] [employer]. Comment on above: Patient Position: Sitting; Cuff Location : Left Arm; Cuff Size: Standard 02-28-2023 15:38-0400 Heart rate 64 /min Shelbie Ellis MA [facility] [employer]. Comment on above: Pattern: Regular 02-28-2023 15:38-0400 Systolic blood pressure 117 mm[Hg] Shelbie Ellis MA [facility] [employer]. Comment on above: Patient Position: Sitting; Cuff Location : Left Arm; Cuff Size: Standard 02-28-2023 15:34-0400 Body height 163.83 cm Shelbie Ellis MA [facility] [employer]. 02-28-2023 15:34-0400 Body mass index (BMI) [Ratio] 38.7 kg/m2 Shelbie Ellis MA [facility] [employer], [employer]. 02-28-2023 15:34-0400 Body surface area Derived from formula 2.08 m2 Shelbie Ellis MA [place] [facility] [employer]. 02-28-2023 15:34-0400 Body weight 103.87 kg Shelbie Ellis MA [place] [facility] [employer]. 02-28-2023 15:34-0400 Diastolic blood pressure 81 mm[Hg] Shelbie Ellis MA [facility] [employer]. Comment on above: Patient Position: Sitting; Cuff Location : Left Arm; Cuff Size: Standard 02-28-2023 15:34-0400 Heart rate 64 /min Shelbie Ellis MA [facility] [employer]. Comment on above: Pattern: Regular 02-28-2023 15:34-0400 Systolic blood pressure 155 mm[Hg] Shelbie Ellis MA [place] [facility] [employer]. Comment on above: Patient Position: Sitting; Cuff Location : Left Arm; Cuff Size: Standard 02-19-2023 08:23-0400 Body height 163.83 cm Isatu Vicente RN [place] [facility] [employer]. 02-19-2023 08:23-0400 Body mass index (BMI) [Ratio] 37.18 kg/m2 Isatu Vicente RN [facility]. 02-19-2023 08:23-0400 Body surface area Derived from formula 2.05 m2 Isatu Vicente RN [facility].; [employer]. 02-19-2023 08:23-0400 Body temperature 99 [degF] Isatu Vicente RN [facility] [employer]. Comment on above: Method: Tympanic 02-19-2023 08:23-0400 Body weight 99.79 kg Isatu Vicente RN [facility] [employer]. 02-19-2023 08:23-0400 Diastolic blood pressure 67 mm[Hg] Isatu Vicente RN [facility] [employer]. Comment on above: Patient Position: Sitting; Cuff Location : Left Arm; Cuff Size: Standard 02-19-2023 08:23-0400 Heart rate 60 /min Isatu Vicente RN [place] [facility] [employer]. Comment on above: Pattern: Regular 02-19-2023 08:23-0400 Inhaled oxygen concentration 20 % Isatu Vicente RN [facility] [employer]. Comment on above: Room air 02-19-2023 08:23-0400 Inhaled oxygen concentration 21 % Isatu Vicente RN [facility] [employer]. Comment on above: Room air 02-19-2023 08:23-0400 SaO2% (BldA) [Mass fraction] 97 % Isatu Vicente RN [place] [facility] [employer]. 02-19-2023 08:23-0400 Systolic blood pressure 108 mm[Hg] Isatu Vicente RN [place] [facility] [employer]. Comment on above: Patient Position: Sitting; Cuff Location : Left Arm; Cuff Size: Standard 09-27-2022 10:23-0400 Body height 163.83 cm Shelbie Ellis MA [facility]. 09-27-2022 10:23-0400 Body mass index (BMI) [Ratio] 36.5 kg/m2 Shelbie Caleb GOYAL [facility] 09-27-2022 10:23-0400 Body surface area Derived from formula 2.03 m2 Shelbie Ellis MA [facility]. 09-27-2022 10:23-0400 Body weight 97.98 kg Shelbieantonio Ellis JYOTSNA [facility].; [facility]. 09-27-2022 10:23-0400 Diastolic blood pressure 92 mm[Hg] Shelbie Ellis MA [facility].; [facility]. Comment on above: Patient Position: Sitting; Cuff Location : Left Arm; Cuff Size: Standard 09-27-2022 10:23-0400 Heart rate 66 /min Shelbie Ellis MA [facility]. Comment on above: Pattern: Regular 09-27-2022 10:23-0400 Inhaled oxygen concentration 20 % Shelbie Ellis MA [facility].; [facility]. Comment on above: Room air 09-27-2022 10:23-0400 Inhaled oxygen concentration 21 % Shelbie Ellis MA [facility]. Comment on above: Room air 09-27-2022 10:23-0400 SaO2% (BldA) [Mass fraction] 94 % Shelbie Ellis MA [facility].; [facility]. 09-27-2022 10:23-0400 Systolic blood pressure 172 mm[Hg] Shelbie Ellis MA [facility] [place] [facility]. Comment on above: Patient Position: Sitting; Cuff Location : Left Arm; Cuff Size: Standard 08-14-2022 16:17-0500 Body height 163.83 cm Isatu Vicente RN [facility].; [facility]. 08-14-2022 16:17-0500 Body mass index (BMI) [Ratio] 38.19 kg/m2 Isatu Vicente RN [place] [facility].; [employer] 08-14-2022 16:17-0500 Body surface area Derived from formula 2.07 m2 Isatu Vicente RN [place] [facility].; [employer] 08-14-2022 16:17-0500 Body weight 102.51 kg Isatu Vicente RN [place] [facility] [employer] 08-14-2022 16:17-0500 Diastolic blood pressure 76 mm[Hg] Isatu Vicente RN [place] [facility] [employer] Comment on above: Patient Position: Sitting; Cuff Location : Left Arm; Cuff Size: Standard 08-14-2022 16:17-0500 Heart rate 59 /min Isatu Vicente RN [place] [facility] [employer] Comment on above: Pattern: Regular 08-14-2022 16:17-0500 Inhaled oxygen concentration 20 % Isatu Vicente RN [place] [facility] [employer] Comment on above: Room air 08-14-2022 16:17-0500 Inhaled oxygen concentration 21 % Isatu Vicente RN [place] [facility] [employer]. Comment on above: Room air 08-14-2022 16:17-0500 SaO2% (BldA) [Mass fraction] 95 % Isatu Vicente RN [place] [facility] [employer] 08-14-2022 16:17-0500 Systolic blood pressure 155 mm[Hg] Isatu Vicente RN [employer] Comment on above: Patient Position: Sitting; Cuff Location : Left Arm; Cuff Size: Standard 05-18-2022 07:37-0500 Body height 163.83 cm Vicky Lemus MA [place] [facility] [employer]. 05-18-2022 07:37-0500 Body mass index (BMI) [Ratio] 37.35 kg/m2 Vicky Lemus MA [place] [facility] [employer]. 05-18-2022 07:37-0500 Body surface area Derived from formula 2.05 m2 Vicky Lemus MA [facility], [facility].; [place] [facility]. 05-18-2022 07:37-0500 Body weight 100.25 kg Vicky Lemus MA [facility], [facility].; [employer] 05-18-2022 07:37-0500 Diastolic blood pressure 77 mm[Hg] Vicky Lemus MA [facility].; [employer]. Comment on above: Patient Position: Sitting; Cuff Location : Left Arm; Cuff Size: Standard 05-18-2022 07:37-0500 Heart rate 57 /min Vicky Lemus MA [facility].; [employer]. Comment on above: Pattern: Regular 05-18-2022 07:37-0500 Systolic blood pressure 200 mm[Hg] Vicky Lemus MA [facility], [facility].; [employer]. Comment on above: Patient Position: Sitting; Cuff Location : Left Arm; Cuff Size: Standard 03-15-2022 09:14-0400 Body height 163.83 cm Cristine Ledezma LPN [facility], [facility].; [facility]. 03-15-2022 09:14-0400 Body mass index (BMI) [Ratio] 36.17 kg/m2 Cristine Ledezma LPN [facility] [employer] 03-15-2022 09:14-0400 Body surface area Derived from formula 2.02 m2 Cristine Ledezma LPN [facility], [facility].; [employer] [facility]. 03-15-2022 09:14-0400 Body temperature 97.9 [degF] Cristine Ledezma LPN [facility], [facility].; [employer]. Comment on above: Method: Tympanic 03-15-2022 09:14-0400 Body weight 97.07 kg Cristine Ledezma LPN [facility], [facility].; [employer]. 03-15-2022 09:14-0400 Diastolic blood pressure 73 mm[Hg] Cristine Ledezma LPN [facility]. Comment on above: Patient Position: Sitting; Cuff Location : Left Arm; Cuff Size: Standard 03-15-2022 09:14-0400 Heart rate 59 /min Cristine Ledezma LPN [facility] [employer]. Comment on above: Pattern: Regular 03-15-2022 09:14-0400 Inhaled oxygen concentration 20 % Cristine Ledezma LPN [facility] [employer]. Comment on above: Room air 03-15-2022 09:140400 Inhaled oxygen concentration 21 % Cristine Ledezma LPN [facility] [employer]. Comment on above: Room air 03-15-2022 09:14-0400 SaO2% (BldA) [Mass fraction] 97 % Cristine Ledezma LPN [facility] [employer]. 03-15-2022 09:14-0400 Systolic blood pressure 148 mm[Hg] Cristine Ledezma LPN [facility] [employer]. Comment on above: Patient Position: Sitting; Cuff Location : Left Arm; Cuff Size: Standard 02-24-2022 08:52-0400 Diastolic blood pressure 69 mm[Hg] Isatu Vicente RN [facility] [employer]. Comment on above: Patient Position: Sitting; Cuff Location : Left Arm; Cuff Size: Large 02-24-2022 08:52-0400 Heart rate 49 /min Isatu Vicente RN [facility] [employer]. Comment on above: Pattern: Regular 02-24-2022 08:52-0400 Systolic blood pressure 159 mm[Hg] Isatu Vicente RN [place] [facility] [employer]. Comment on above: Patient Position: Sitting; Cuff Location : Left Arm; Cuff Size: Large 02-24-2022 08:21-0400 Body height 163.83 cm Isatu Vicente RN [facility] [employer]. 02-24-2022 08:21-0400 Body mass index (BMI) [Ratio] 36.33 kg/m2 Isatu Vicente RN [facility]. 02-24-2022 08:21-0400 Body surface area Derived from formula 2.03 m2 Isatu Vicente RN [facility].; [employer] [facility]. 02-24-2022 08:21-0400 Body weight 97.52 kg Isatu Vicente RN [facility].; [employer]. 02-24-2022 08:21-0400 Diastolic blood pressure 68 mm[Hg] Isatu Vicente RN [facility].; [facility]. Comment on above: Patient Position: Sitting; Cuff Location : Left Arm; Cuff Size: Large 02-24-2022 08:21-0400 Heart rate 53 /min Isatu Vicente RN [facility] [employer]. Comment on above: Pattern: Regular 02-24-2022 08:21-0400 Inhaled oxygen concentration 20 % Isatu Vicente RN [facility].; [employer]. Comment on above: Room air 02-24-2022 08:21-0400 Inhaled oxygen concentration 21 % Isatu Vicente RN [place] [facility] [employer]. Comment on above: Room air 02-24-2022 08:21-0400 SaO2% (BldA) [Mass fraction] 93 % Isatu Vicente RN [facility].; [employer]. 02-24-2022 08:21-0400 Systolic blood pressure 155 mm[Hg] Isatu Vicente RN [place] [facility] [employer]. Comment on above: Patient Position: Sitting; Cuff Location : Left Arm; Cuff Size: Large 08-16-2021 10:50-0500 Body height 163.83 cm Cristine Ledezma LPN [facility].; [employer]. 08-16-2021 10:50-0500 Body mass index (BMI) [Ratio] 37.35 kg/m2 Cristine Ledezma LPN [facility], [facility].; [facility]. 08-16-2021 10:50-0500 Body surface area Derived from formula 2.05 m2 Cristine Ledezma LPN [facility], [facility].; [facility]. 08-16-2021 10:50-0500 Body temperature 97.3 [degF] Cristine Ledezma LPN [facility], [facility].; [place] [facility] Comment on above: Method: Tympanic 08-16-2021 10:50-0500 Body weight 100.25 kg Cristine Ledezma LPN [facility], [facility].; [facility]. 08-16-2021 10:50-0500 Diastolic blood pressure 73 mm[Hg] Cristine Ledezma LPN [facility], [facility].; [place] [facility] Comment on above: Patient Position: Sitting; Cuff Location : Left Arm; Cuff Size: Standard 08-16-2021 10:50-0500 Heart rate 58 /min Cristine Ledezma LPN [facility], [facility].; [place] [facility] Comment on above: Pattern: Regular 08-16-2021 10:50-0500 Inhaled oxygen concentration 20 % Cristine Ledezma [facility], [facility].; [facility], [facility]. Comment on above: Room air 08-16-2021 10:50-0500 Inhaled oxygen concentration 21 % Cristine Ledezma LPN [facility], [facility].; [place] [employer] Comment on above: Room air 08-16-2021 10:50-0500 SaO2% (BldA) [Mass fraction] 98 % Cristine Ledezma LPN [facility], [facility].; [place] [facility] 08-16-2021 10:50-0500 Systolic blood pressure 171 mm[Hg] Cristine Ledezma LPN [facility], [facility].; [place] [employer], [employer]. Comment on above: Patient Position: Sitting; Cuff Location : Left Arm; Cuff Size: Standard 07-05-2020 13:58-0500 Body height 163.83 cm Minnie Butler CHARITY [facility], [facility].; [place] [facility] 07-05-2020 13:58-0500 Body mass index (BMI) [Ratio] 36.67 kg/m2 Minnie Butler [facility] 07-05-2020 13:58-0500 Body surface area Derived from formula 2.04 m2 Minnie Butler [employer] [facility] 07-05-2020 13:58-0500 Body weight 98.43 kg Minnie Butler [facility], [facility] [employer] 07-05-2020 13:58-0500 Diastolic blood pressure 79 mm[Hg] Minnie Butler [facility] [employer] Comment on above: Patient Position: Sitting; Cuff Location : Left Arm; Cuff Size: Large 07-05-2020 13:58-0500 Heart rate 61 /min Julia Luke [facility] [employer] Comment on above: Pattern: Regular 07-05-2020 13:58-0500 Systolic blood pressure 170 mm[Hg] Minnie Butler [facility] [employer] Comment on above: Patient Position: Sitting; Cuff Location : Left Arm; Cuff Size: Large 05-14-2020 09:20-0500 Body height 163.83 cm Max Orozco MD Work Phone: [facility], [employer] 05-14-2020 09:20-0500 Body mass index (BMI) [Ratio] 37.01 kg/m2 Max Orozco MD Work Phone: [facility], [employer], [employer] 05-14-2020 09:20-0500 Body surface area Derived from formula 2.04 m2 Max Orozco MD Work Phone: [place] [facility], [employer].; [employer] 05-14-2020 09:20-0500 Body weight 99.34 kg Max Orozco MD Work Phone: [place] [facility] [employer], [employer]. 05-14-2020 09:20-0500 Diastolic blood pressure 74 mm[Hg] Max Orozco MD Work Phone: [employer]; [employer] Comment on above: Patient Position: Sitting; Cuff Location : Right Arm; Cuff Size: Standard 05-14-2020 09:20-0500 Heart rate 52 /min Max Orozco MD Work Phone: [employer]; [employer] Comment on above: Pattern: Regular 05-14-2020 09:20-0500 Inhaled oxygen concentration 20 % Max Orozco MD Work Phone: [employer]; [employer] Comment on above: Room air 05-14-2020 09:20-0500 Inhaled oxygen concentration 21 % Max Orozco MD Work Phone: [employer]; [employer] Comment on above: Room air 05-14-2020 09:20-0500 SaO2% (BldA) [Mass fraction] 98 % Max Orozco MD Work Phone: [employer]; [employer] 05-14-2020 09:20-0500 Systolic blood pressure 144 mm[Hg] Max Orozco MD Work Phone: [employer]; [employer] Comment on above: Patient Position: Sitting; Cuff Location : Right Arm; Cuff Size: Standard 08-16-2018 13:29-0500 Body height 163.83 cm Max Orozco MD Work Phone: [employer]; [employer] 08-16-2018 13:29-0500 Body mass index (BMI) [Ratio] 36 kg/m2 Max Orozco MD Work Phone: [employer]; [employer] 08-16-2018 13:29-0500 Body surface area Derived from formula 2.02 m2 Max Orozco MD Work Phone: [employer]; [employer] 08-16-2018 13:29-0500 Body temperature 98.4 [degF] Max Orozco MD Work Phone: [employer]; [employer] Comment on above: Method: Tympanic 08-16-2018 13:29-0500 Body weight 96.62 kg Max Orozco MD Work Phone: [employer]; [employer] 08-16-2018 13:29-0500 Diastolic blood pressure 67 mm[Hg] Max Orozco MD Work Phone: [employer]; [employer] Comment on above: Patient Position: Sitting; Cuff Location : Left Arm; Cuff Size: Standard 08-16-2018 13:29-0500 Heart rate 76 /min Max Orozco MD Work Phone: [employer]; [employer] Comment on above: Pattern: Regular 08-16-2018 13:29-0500 Inhaled oxygen concentration 20 % Max Orozco MD Work Phone: [employer]; [employer] Comment on above: Room air 08-16-2018 13:29-0500 Inhaled oxygen concentration 21 % Max Orozco MD Work Phone: [employer]; [employer] Comment on above: Room air 08-16-2018 13:29-0500 SaO2% (BldA) [Mass fraction] 97 % Max Orozco MD Work Phone: [employer]; [employer] 08-16-2018 13:29-0500 Systolic blood pressure 150 mm[Hg] Max Orozco MD Work Phone: [employer]; [employer] Comment on above: Patient Position: Sitting; Cuff Location : Left Arm; Cuff Size: Standard 08-08-2018 08:04-0500 Body height 163.83 cm Valentin Mckeon LPN [employer]; [employer] 08-08-2018 08:04-0500 Body mass index (BMI) [Ratio] 37.35 kg/m2 Nesallye Brandie Mckeon [employer] ARCH[employer] [facility] [place], [employer]. 08-08-2018 08:04-0500 Body surface area Derived from formula 2.05 m2 Nesallye Brandie Mckeon [facility] [employer] 08-08-2018 08:04-0500 Body temperature 99.4 [degF] Nesallye L Mike JAVA ARCHITECT [facility] [place], [employer]. Comment on above: Method: Tympanic 08-08-2018 08:04-0500 Body weight 100.25 kg [place] Brandie [facility]ke[facility] [place], [employer]. 08-08-2018 08:04-0500 Diastolic blood pressure 72 mm[Hg] Nesallye L Mike JAVA ARCHITECT [place] [employer] [place], [employer]. Comment on above: Patient Position: Sitting; Cuff Location : Right Arm; Cuff Size: Standard 08-08-2018 08:04-0500 Heart rate 70 /min [place] Brandie Mckeon [facility] [employer] [place] Comment on above: Pattern: Regular 08-08-2018 08:04-0500 Inhaled oxygen concentration 20 % [place] L Mike [facility] [place] Comment on above: Room air 08-08-2018 08:04-0500 Inhaled oxygen concentration 21 % Neilee L Mike JAVA ARCHITECT [employer] [place], [employer]. Comment on above: Room air 08-08-2018 08:04-0500 SaO2% (BldA) [Mass fraction] 93 % Nesallye Brandie Mckeon [facility] [place], [employer]. 08-08-2018 08:04-0500 Systolic blood pressure 156 mm[Hg] Neilee L Mike [facility] [employer] Comment on above: Patient Position: Sitting; Cuff Location : Right Arm; Cuff Size: Standard 10-04-2016 07:40-0400 Body height 163.83 cm Minnie Butler [facility] [employer] 10-04-2016 07:40-0400 Body mass index (BMI) [Ratio] 35.15 kg/m2 Minnie Butler JAVA ARCHITECT [facility] [place], [employer]. 10-04-2016 07:40-0400 Body surface area Derived from formula 2 m2 Minnie Butler JAVA ARCHITECT [facility] [place], [employer]. 10-04-2016 07:40-0400 Body temperature 97.6 [degF] Minnie Butler J[employer] ARCHITECT [facility] [place], [employer]. Comment on above: Method: Tympanic 10-04-2016 07:40-0400 Body weight 94.35 kg Minnie Butler LPN [facility] [place], [employer]. 10-04-2016 07:40-0400 Diastolic blood pressure 72 mm[Hg] Minnie Butler [facility] [place], [employer]. Comment on above: Patient Position: Sitting; Cuff Location : Left Arm; Cuff Size: Large 10-04-2016 07:40-0400 Heart rate 66 /min Minnie Butler JAVA ARCHITECT [facility] [employer] Comment on above: Pattern: Regular 10-04-2016 07:40-0400 Systolic blood pressure 159 mm[Hg] Minnie Butler JAVA ARCHITECT [employer] [facility] [place], [employer]. Comment on above: Patient Position: Sitting; Cuff Location : Left Arm; Cuff Size: Large 05-07-2015 09:35-0500 Body weight 102.97 kg Sahara Hernández LPN [place] [facility] [place], [employer]. 05-07-2015 09:35-0500 Diastolic blood pressure 56 mm[Hg] Sahara Hernández JAVA ARCHITECT [employer] [facility], [employer] Comment on above: Patient Position: Sitting; Cuff Location : Left Arm; Cuff Size: Standard 05-07-2015 09:35-0500 Heart rate 87 /min Sahara Hernández LPN [place] [facility], [employer] Comment on above: Pattern: Regular 05-07-2015 09:35-0500 Systolic blood pressure 132 mm[Hg] Sahara Hernández LPN [place] [facility], [facility] [employer]. Comment on above: Patient Position: Sitting; Cuff Location : Left Arm; Cuff Size: Standard 12-25-2014 07:47-0400 Body weight 97.07 kg Sahara Hernández LPN [facility] [employer], [employer]. 12-25-2014 07:47-0400 Diastolic blood pressure 67 mm[Hg] Sahara Hernández LPN [place] [facility], [facility].; [employer]. Comment on above: Patient Position: Sitting; Cuff Location : Left Arm; Cuff Size: Standard 12-25-2014 07:47-0400 Heart rate 76 /min Sahara Hernández LPN [facility], [facility] [employer], [employer]. Comment on above: Pattern: Regular 12-25-2014 07:47-0400 Systolic blood pressure 153 mm[Hg] Sahara Hernández LPN [place] [facility], [employer].; [employer], [employer]. Comment on above: Patient Position: Sitting; Cuff Location : Left Arm; Cuff Size: Standard 12-02-2014 08:06-0400 Body height 163.83 cm Chastity Ozuna PA-C Work Phone: [facility], [employer]. 12-02-2014 08:06-0400 Body mass index (BMI) [Ratio] 36 kg/m2 Chastity Ozuna PA-C Work Phone: [employer], [employer].; [employer]. 12-02-2014 08:06-0400 Body surface area Derived from formula 2.02 m2 Chastity Ozuna PA-C Work Phone: [employer].; [employer]. 12-02-2014 08:06-0400 Body weight 96.62 kg Chastity Ozuna PA-C Work Phone: [employer], [employer].; [employer]. 12-02-2014 08:06-0400 Diastolic blood pressure 84 mm[Hg] Chastity Ozuna PA-C Work Phone: [facility]. Comment on above: Patient Position: Sitting; Cuff Location : Left Arm; Cuff Size: Standard 12-02-2014 08:06-0400 Heart rate 57 /min Chastity Ozuna PA-C Work Phone: [facility] [employer] Comment on above: Pattern: Regular 12-02-2014 08:06-0400 Systolic blood pressure 144 mm[Hg] Chastity Ozuna PA-C Work Phone: [facility] [employer] Comment on above: Patient Position: Sitting; Cuff Location : Left Arm; Cuff Size: Standard 01-28-2013 15:40-0400 Body temperature 100.2 [degF] Minnie Butler [facility], [employer] Comment on above: Method: Tympanic 01-28-2013 15:40-0400 Body weight 102.97 kg Minnie Butler [facility], [employer].; [employer]. 01-28-2013 15:40-0400 Diastolic blood pressure 81 mm[Hg] Minnie Butler [facility], [employer].; [employer]. Comment on above: Patient Position: Sitting; Cuff Location : Left Arm; Cuff Size: Large 01-28-2013 15:40-0400 Heart rate 86 /min Minnie Butler JAVA ARCHITECT [facility], [employer]. Comment on above: Pattern: Regular 01-28-2013 15:40-0400 Inhaled oxygen concentration 20 % Minnie Butler [facility] [employer] Comment on above: Room air 01-28-2013 15:40-0400 Inhaled oxygen concentration 21 % Minnie Butler [facility], [employer]. Comment on above: Room air 01-28-2013 15:40-0400 SaO2% (BldA) [Mass fraction] 94 % JuliaFlorencia Butler [facility], [employer].; [employer]. 01-28-2013 15:40-0400 Systolic blood pressure 137 mm[Hg] Minnie Butler [facility] [employer]. Comment on above: Patient Position: Sitting; Cuff Location : Left Arm; Cuff Size: Large 04-05-2012 15:04-0400 Body temperature 97.9 [degF] Sheila Wekerry [facility] [employer] Comment on above: Method: Tympanic 04-05-2012 15:04-0400 Body weight 106.2 kg Sheila Wekerry JAVA ARCHITECT [place] [facility] [employer] 04-05-2012 15:04-0400 Diastolic blood pressure 92 mm[Hg] Sheila Susan [facility] [employer] [place], [employer]. Comment on above: Patient Position: Sitting; Cuff Location : Left Arm; Cuff Size: Standard 04-05-2012 15:04-0400 Heart rate 76 /min Sheila Davis [facility] [employer] Comment on above: Pattern: Regular 04-05-2012 15:04-0400 Inhaled oxygen concentration 20 % Sheila Michaelkerry [facility] [employer] Comment on above: Room air 04-05-2012 15:04-0400 Inhaled oxygen concentration 21 % Sheila Michaelkerry [facility] [employer] Comment on above: Room air 04-05-2012 15:04-0400 SaO2% (BldA) [Mass fraction] 95 % Sheila Michaelkerry [facility] [employer] 04-05-2012 15:04-0400 Systolic blood pressure 149 mm[Hg] Sheila [facility]ry [facility] [employer] Comment on above: Patient Position: Sitting; Cuff Location : Left Arm; Cuff Size: Standard 12-11-2011 13:49-0400 Body weight 107.05 kg Sahara Mena Edgar JAVA ARCHITECT [place] [facility], [employer].; [employer] 12-11-2011 13:49-0400 Diastolic blood pressure 82 mm[Hg] Sahara Hernández CHARITY [place] [facility] [employer] Comment on above: Patient Position: Sitting; Cuff Location : Left Arm; Cuff Size: Standard 12-11-2011 13:49-0400 Heart rate 64 /min Sahara San Edgar NASH [facility], [employer] Comment on above: Pattern: Regular 12-11-2011 13:49-0400 Systolic blood pressure 147 mm[Hg] Sahara Hernández CHARITY [employer], [employer] Comment on above: Patient Position: Sitting; Cuff Location : Left Arm; Cuff Size: Standard Encounters Encounter Date Encounter Type Care Provider Facility Start: 03-04-2025 End: 03-04-2025 ambulatory [facility] Start: 02-09-2025 End: 02-09-2025 Office outpatient visit 15 minutes Chastity Ozuna PA-C Work Phone: [employer] Start: 01-01-2025 Follow-up encounter Chastity Be an PA-C Work Phone: [employer] Start: 01-01-2025 End: 01-01-2025 Office outpatient visit 15 minutes Chastity Ozuna PA-C Work Phone: [employer] Start: 12-25-2024 End: 12-25-2024 Historical Summary Chastity Ozuna PA-C Work Phone: [employer] Start: 11-07-2024 End: 11-07-2024 ambulatory Chastity Ozuna Facility:[facility] Start: 06-17-2024 End: 06-17-2024 Office outpatient visit 15 minutes Chastity Ozuna PA-C Work Phone: [employer] Start: 06-17-2024 Review Chastity Ozuna P A-C Work Phone: [employer] Start: 04-25-2024 End: 04-25-2024 Office outpatient visit 25 minutes Chastity Ozuna PA-C Work Phone: [facility] Start: 02-08-2024 End: 02-08-2024 Patient encounter procedure Vicky Lemus MA [facility] Start: 02-08-2024 Patient encounter procedure Chastity Ozuna PA-C Work Phone: [facility] Start: 02-08-2024 Review Chastity Ozuna P A-C Work Phone: [facility] Start: 02-07-2024 End: 02-07-2024 ambulatory Chastity Ozuna [facility] Start: 01-01-2024 End: 01-01-2024 Orders Chastity Ozuna PA-C Work Phone: [facility] Start: 12-28-2023 ambulatory Aslhey Rivera NP Facili ty:[facility] Start: 10-19-2023 End: 10-19-2023 ambulatory PA Chastity Ozuna Work Phone: [facility] Work Phone: Start: 10-19-2023 End: 10-19-2023 Patient encounter procedure PA Chastity Ozuna Work Phone: [facility] Work Phone: Start: 09-14-2023 End: 09-14-2023 ambulatory PA Chastity Ozuna Work Phone: [facility] Work Phone: Start: 09-14-2023 End: 09-14-2023 Patient encounter procedure PA Chastity Ozuna Work Phone: [facility] Work Phone: Start: 03-09-2023 End: 03-09-2023 Patient encounter procedure Chastity Ozuna PA-C Work Phone: [facility] Start: 02-28-2023 End: 02-28-2023 Office outpatient visit 15 minutes Chastity Ozuna PA-C Work Phone: [employer] Start: 02-26-2023 End: 02-26-2023 Telephone follow-up Chastity Ozuna PA-C Work Phone: [employer] Start: 02-19-2023 End: 02-19-2023 Office outpatient visit 15 minutes Chastity Ozuna PA-C Work Phone: [employer] Start: 09-27-2022 End: 09-27-2022 Office outpatient visit 15 minutes Chastity Ozuan PA-C Work Phone: [employer] Start: 08-14-2022 End: 08-14-2022 Office outpatient visit 25 minutes Chastity Ozuna PA-C Work Phone: [employer] Start: 05-18-2022 End: 05-18-2022 Patient encounter procedure Chastity Ozuna PA-C Work Phone: [employer] Start: 03-16-2022 End: 03-16-2022 Admission to establishment Chastity Ozuna PA-C Work Phone: [employer] Start: 03-15-2022 End: 03-15-2022 Office outpatient visit 15 minutes Chastity Ozuna PA-C Work Phone: [employer] Start: 03-14-2022 End: 03-14-2022 Telephone follow-up Chastity Ozuna PA-C Work Phone: [employer] Start: 02-24-2022 End: 02-24-2022 Patient encounter procedure Chastity Ozuna PA-C Work Phone: [employer] Start: 02-24-2022 End: 02-24-2022 Patient encounter status Chastity Ozuna PA-C Work Phone: [employer]; [employer] Start: 08-16-2021 End: 08-16-2021 Medication Chastity Ozuna PA-C Work Phone: [employer] Start: 08-16-2021 End: 08-16-2021 Office outpatient visit 15 minutes Chastity Ozuna PA-C Work Phone: [employer] Start: 07-05-2020 End: 07-05-2020 Office outpatient visit 15 minutes Chastity Ozuna PA-C Work Phone: [employer] Start: 05-14-2020 End: 05-14-2020 Patient encounter procedure Chastity Ozuna PA-C Work Phone: [employer] Start: 11-26-2018 End: 11-26-2018 Telephone follow-up Chastity Ozuna PA-C Work Phone: [employer] Start: 08-16-2018 End: 08-16-2018 Office outpatient visit 15 minutes Chastity Ozuna PA-C Work Phone: [employer] Start: 08-08-2018 End: 08-08-2018 Office outpatient visit 15 minutes Chastity Ozuna PA-C Work Phone: [employer] Start: 10-04-2016 End: 10-04-2016 Office outpatient visit 15 minutes Chastity Ozuna PA-C Work Phone: [employer] Start: 05-07-2015 End: 05-07-2015 Office outpatient visit 15 minutes Chastity Ozuna PA-C Work Phone: [employer] Start: 12-25-2014 End: 12-25-2014 Office outpatient visit 15 minutes Chastity Ozuna PA-C Work Phone: [employer] Start: 12-08-2014 End: 12-08-2014 Orders Chastity Ozuna PA-C Work Phone: [employer] Start: 12-02-2014 End: 12-02-2014 Office outpatient visit 15 minutes Chastity Ozuna PA-C Work Phone: [employer] Start: 01-28-2013 End: 01-28-2013 Patient encounter procedure Chastitydelma Ozuna PA-C Work Phone: [employer] Start: 04-05-2012 End: 04-05-2012 Patient encounter procedure Chastitydelma Ozuna PA-C Work Phone: [employer] Start: 03-18-2012 End: 03-18-2012 Refill Kuldip A Abreu Work Phone: Cardiology Comment on above: Refill Request Start: 12-22-2011 End: 12-22-2011 Orders Chastity Ozuna PA-C Work Phone: [employer] Start: 12-11-2011 End: 12-11-2011 Patient encounter procedure Chastity Ozuna PA-C Work Phone: [employer] Follow-up encounter Isatu perez RN [employer]; [facility] Patient encounter procedure Chastity Ozuna PA-C Work Phone: [employer]; [employer] Procedures Date Procedure Procedure Detail Performing Clinician Start: 02-08-2024 End: 02-08-2024 Adv care pln/ no alt dcsn mkr docd or refusal Chastity Ozuna PA-C Work Phone: Start: 02-08-2024 End: 02-08-2024 Depression screening Chastity Viola Ozuna PA-C Work Phone: Start: 02-08-2024 End: 02-08-2024 Falls risk assessment documented Chastity Viola Ozuna PA-C Work Phone: Start: 02-08-2024 End: 02-08-2024 PPPS, subseq visit Chastity J Ozuna PA-C Work Phone: Start: 02-08-2024 End: 02-08-2024 Pt falls assess docd w/o fall/injury past year Chastity Viola Ozuna PA-C Work Phone: Start: 02-08-2024 End: 02-08-2024 Scr dep neg, no plan reqd Chastity Viola Ozuna PA-C Work Phone: Start: 02-07-2024 End: 02-07-2024 Most Recent Cardio Report Chastity Ozuna PA-C Work Phone: Start: 02-01-2024 End: 02-01-2024 Lab findings surveillance Vicky Lemus MA Comment on above: 114 Start: 02-01-2024 End: 02-01-2024 Lipid panel Vicky Lemus MA Start: 02-01-2024 End: 02-01-2024 PSA screening Vicky Lemus MA Comment on above: 0.65 Start: 03-09-2023 End: 03-09-2023 Adv care pln/ no alt dcsn mkr docd or refusal Chastity Viola Ozuna PA-C Work Phone: Start: 03-09-2023 End: 03-09-2023 Depression screening Chastity J Ozuna PA-C Work Phone: Start: 03-09-2023 End: 03-09-2023 Falls risk assessment documented Chastity J Ozuna PA-C Work Phone: Start: 03-09-2023 End: 03-09-2023 PPPS, subseq visit Chastity J Ozuna PA-C Work Phone: Start: 03-09-2023 End: 03-09-2023 Pt falls assess docd w/o fall/injury past year Chastity J Ozuna PA-C Work Phone: Start: 03-09-2023 End: 03-09-2023 Scr dep neg, no plan reqd Chastity J Ozuna PA-C Work Phone: Start: 05-18-2022 End: 05-18-2022 Avulsion nail plate partial/complete simple 1 Max Orozco MD Work Phone: Start: 03-08-2022 End: 03-08-2022 Cologhiren Lemus MA Comment on above: Normal. Start: 02-24-2022 End: 02-24-2022 Adv care pln/ no alt dcsn mkr docd or refusal Chastity Rod Ozuna PA-C Work Phone: Start: 02-24-2022 End: 04-13-2022 Brncdilat rspse spmtry pre&post-brncdilat admn Chastity Rod Ozuna PA-C Work Phone: Start: 02-24-2022 End: 02-24-2022 Depression screening Chastity Viola Ozuna PA-C Work Phone: Start: 02-24-2022 End: 02-24-2022 Falls risk assessment documented Chastity J Ozuna PA-C Work Phone: Start: 02-24-2022 End: 02-24-2022 Initial preventive exam Chastity Ozuna P A-C Work Phone: Start: 02-24-2022 End: 02-24-2022 Lipid panel Vicky Lemus MA Start: 02-24-2022 End: 04-05-2022 Oncology colorectal screening jeanette 10 dna markrs Chastity Viola Ozuna PA-C Work Phone: Start: 02-24-2022 End: 02-24-2022 Pt falls assess docd w/o fall/injury past year Chastity Viola Ozuna PA-C Work Phone: Start: 02-24-2022 End: 02-24-2022 Pure tone audiometry air only Chastity Viloa Ozuna PA-C Work Phone: Start: 02-24-2022 End: 04-04-2022 Radiologic exam esophagus single contrast study Chastity Viola Ozuna PA-C Work Phone: Start: 02-24-2022 End: 02-24-2022 Scr dep neg, no plan reqd Chastity Rod Ozuna PA-C Work Phone: Start: 08-16-2021 End: 08-16-2021 Chest x-ray Chastity Viola Ozuna PA-C Work Phone: Start: 07-05-2020 End: 07-06-2020 Dup-scan lxtr art/artl bpgs uni/lmtd study Max Orozco MD Work Phone: Start: 05-14-2020 End: 05-14-2020 Flu imm no admin doc kobe Max Short Work Phone: Start: 08-08-2018 End: 10-14-2018 Pressurized/nonpressuriz ed inhalation treatment Isatu Thurston PA-C Work Phone: Comment on above: PO RA s/p treatment - 93%Exam s/p treatment - less wheeze, persistent rhonchi throughout Start: 08-08-2018 End: 10-14-2018 Radiologic exam chest 2 views Isatu Thurston PA-C Work Phone: Comment on above: clear per radiology wet read....however given lung sounds on exam discussed with HERMES, who agrees low probability of this being PE...will cover with abx and medrol placido...f/u with usualy provider ([facility]) next week... Start: 12-08-2014 End: 12-21-2014 Radex spine lumbosacral 2/3 views Max Orozco MD Work Phone: Start: 08-06-2008 History of placement of stent for coronary artery disease History of coronary artery stent placement KARLA Ozuna Work Phone: Appendectomy Vicky Lemus MA Appendectomy Vicky Lemus MA Appendectomy Shelbie Ellis MA Appendectomy Shelbie Ellis MA CAD (coronary artery disease) Isatu Vicente RN Plan of Treatment Date Care Activity Detail Author Start: 01-01-2025 Assay of thyroid stimulating hormone tsh TSH W/ REFL FREE T4 (61842,[id number]) (05033) Start: 01-Jan-2025 09:35-04:00 Request [employer]; [employer] Start: 01-01-2025 Comprehensive metabolic panel CMP w/ GFR* ([id number]) Start: 01-Jan-2025 09:35-04:00 Request [employer]; [employer] Start: 01-01-2025 Blood count complete auto&auto difrntl wbc CBC, PLATELETS & AUT DIFF (F) ([id number]) Start: 01-Jan-2025 09:35-04:00 Request [employer]; [employer] Start: 01-01-2025 Patient encounter procedure Medical; EXTENDED RTN - positive stool per Ins but he doesnt know what (will bring results) [employer] Start: 01-Jan-2025 09:10-04:00 SKYE Ozuna Appointment Request [employer] Start: 02-08-2024 Patient encounter procedure Medical; PHYSICAL - AWV medicare wellness [employer] Start: 08-Feb-2024 15:50-04:00 SKYE Ozuna Appointment Request [employer] Start: 01-01-2024 Assay of prostate specific antigen total PSA TOTAL (PROSTATE SPECIFIC ANTIGEN) ([id number]) Start: 01-Jan-2024 Request [employer]; [employer] Start: 01-01-2024 Comprehensive metabolic panel CMP w/ GFR* ([id number]) Start: 01-Jan-2024 Request [employer]; [employer] Start: 01-01-2024 Lipid panel LIPID PANEL (96934) Start: 01-Jan-2024 Request [employer]; [employer] Start: 03-02-2021 Influenza vaccination INFLUENZA (Season Ended) [facility] Start: 02-26-[address] [facility] Start: 02-26-2015 DIABETES SCREEN DIABETES SCREEN [facility] Start: 11-21-2011 PROSTATE CANCER SCREENING DISCUSSION PROSTATE CANCER SCREENING DISCUSSION [facility] Start: 2006 Screening for malignant neoplasm of colon [facility] Start: 2006 SHINGRIX VACCINE (1 of 2) SHINGRIX VACCINE (1 of 2) [facility] Start: 11-21-1975 Urine microalbumin profile DTAP,TDAP,TD (1 - Tdap) [facility] Start: 1974 HEPATITIS C SCREENING HEPATITIS C SCREENING [facility] Start: 1974 HIV SCREENING HIV SCREENING [facility] Start: 1968 Adult depression screening assessment DEPRESSION SCREENING [facility] Stress echocardiography [facility] Payers Date Payer Category Payer Self-pay [id number] 2023 Unknown [id number] 2012 Self-pay SELF PAY HSP/MED ICAL SELF PAY [id number] 2012-2015 SELF PAY Indemnity [id number] 1955 Unknown [id number] Unknown [facility] [employer] [id number] Unknown COMMERCIAL OTHER [id number] Unknown [id number] Unknown [id number] Unknown [id number] Social History Date Type Detail Facility Start: 02-27-2012 [facility] End: 07-02-2006 History of tobacco use Current smoker [facility] End: 07-02-2006 History of tobacco use Cigarette Smoker [facility] Start: 02-27-2012 Cigarettes smoked current (pack per day) - Reported [facility] Start: 02-27-2012 Tobacco use and exposure Never used [facility] Start: 02-27-2012 Alcohol intake Current drinke r of alcohol (finding) [facility] Start: 02-27-2012 Alcohol Comment Occasionally [facility] Start: 1955 Sex Assigned At Not [facility] file [facility] Tobacco Use: Tobacco Use: ; F ormer smoker. [employer]; [employer] Tobacco Use: Tobacco Use: ; N ever smoker. [employer]; [employer] Start: 1955 Male [facility] Never smoked tobacco [employer]; [employer] Work Phone: Start: 09-14-2023 [facility] Start: 05-04-2019 Occasional [facility] Start: 05-04-2019 None [facility] Start: 05-04-2019 With Family [facility] Clinical Note 02-26-2023 Note Date & Type Note Facility 02-26-2023 Note . MICRO - Microbiology PROCEDURE: Blood Culture (bacterial) [*1] SOURCE: Blood BODY SITE: COLLECTED DATE/TIME: 02/21/2023 01:05 EDT RECEIVED DATE/TIME: 02/21/2023 16:34 EDT START DATE/TIME: 02/21/2023 16:34 EDT FREE TEXT SOURCE: FINAL REPORTS Final Report [] Verified Date/Time/Personnel: 02/26/2023 16:59 EDT Blood Culture: No Growth at 5 days. PRELIMINARY REPORTS Preliminary Report [] Verified Date/Time/Personnel: 02/21/2023 18:00 EDT Culture has been received in lab and is no growth to date. Routine cultures are held for 5 days. Performing Locations *1: This test was performed at: [facility], [address] [place] [address], [facility] , [facility] ([place]) Clinical Note 02-26-2023 Note Date & Type Note Facility 02-26-2023 Note . MICRO - Microbiology PROCEDURE: Blood Culture (bacterial) [*1] SOURCE: Blood BODY SITE: COLLECTED DATE/TIME: 02/21/2023 01:05 EDT RECEIVED DATE/TIME: 02/21/2023 16:33 EDT START DATE/TIME: 02/21/2023 16:34 EDT FREE TEXT SOURCE: FINAL REPORTS Final Report [] Verified Date/Time/Personnel: 02/26/2023 16:59 EDT Blood Culture: No Growth at 5 days. PRELIMINARY REPORTS Preliminary Report [] Verified Date/Time/Personnel: 02/21/2023 18:00 EDT Culture has been received in lab and is no growth to date. Routine cultures are held for 5 days. Performing Locations *1: This test was performed at: [facility], [address] [place] [address], [address] [place] [address] ([place]) Evaluation note 08-06-2008 Note Date & Type Note Facility 08-06-2008 Evaluation note Diagnosis Onset Date GREGORY (dyspnea on exertion) ac mcgrath Essential (primary) hypertension chronic Hyperlipidemia chronic History of coronary artery stent placement August 06, 2008 [facility] Work Phone: Summary Purpose Family History No Family History Records Found Colon Cancer Status:Active Comments:Negativ e Family History Of. Heart Disease Status:Active Comments:Mother. Colon Cancer Status:Active Comments:Negativ e Family History Of. Heart Disease Status:Active Comments:Mother. Colon Cancer Status:Active Comments:Negativ e Family History Of. Heart Disease Status:Active Comments:Mother. Relationship Condition Age at Onset Recorded Date/T [place] father Chronic obstructive pulmonary disease Unk nown mother Coronary artery disease Unknown Myocardial infarction Unknown Colon Cancer Status:Active Comments:Negativ e Family History Of. Heart Disease Status:Active Comments:Mother. Colon Cancer Status:Active Comments:Negativ e Family History Of. Heart Disease Status:Active Comments:Mother. Colon Cancer Status:Active Comments:Negativ e Family History Of. Heart Disease Status:Active Comments:Mother. Colon Cancer Status:Active Comments:Negativ e Family History Of. Heart Disease Status:Active Comments:Mother. Colon Cancer Status:Active Comments:Negativ e Family History Of. Heart Disease Status:Active Comments:Mother. Colon Cancer Status:Active Comments:Negativ e Family History Of. Heart Disease Status:Active Comments:Mother. Colon Cancer Status:Active Comments:Negativ e Family History Of. Heart Disease Status:Active Comments:Mother. Colon Cancer Status:Active Comments:Negativ e Family History Of. Heart Disease Status:Active Comments:Mother. Colon Cancer Status:Active Comments:Negativ e Family History Of. Heart Disease Status:Active Comments:Mother. Colon Cancer Status:Active Comments:Negativ e Family History Of. Heart Disease Status:Active Comments:Mother. Colon Cancer Status:Active Comments:Negativ e Family History Of. Heart Disease Status:Active Comments:Mother. Colon Cancer Status:Active Comments:Negativ e Family History Of. Heart Disease Status:Active Comments:Mother. Colon Cancer Status:Active Comments:Negativ e Family History Of. Heart Disease Status:Active Comments:Mother. Colon Cancer Status:Active Comments:Negativ e Family History Of. Heart Disease Status:Active Comments:Mother. Colon Cancer Status:Active Comments:Negativ e Family History Of. Heart Disease Status:Active Comments:Mother. Colon Cancer Status:Active Comments:Negativ e Family History Of. Heart Disease Status:Active Comments:Mother. Colon Cancer Status:Active Comments:Negativ e Family History Of. Heart Disease Status:Active Comments:Mother. Advance Directives No Advanced Directives Records Found Advance Directive Response Recorded Date/ Time Advance Directives Yes August 03, 2017 11:12am Living Will No May 04 3:04am Power of Revenue Cycle Consultant No May 04, 2019 3:04am Chief Complaint and Reason for Visit Chief Complaint 3 M FU Reason for Visit GREGORY (dyspnea on exer tion) Essential (primary) hypertension Hyperlipidemia History of coronary artery stent placement Chief Complaint 3 M FU GREGORY Reason for Visit GREGORY (dyspnea on exer tion) Essential (primary) hypertension Hyperlipidemia History of coronary artery stent placement Additional Source Comments Source Comments (unrecognize d section and content) In the event this informatio n is protected by the Federal Confidentiality of Alcohol and Drug Abuse Patient Records regulations: The Federal rules restrict any use of the information to criminally investigate or prosecute any alcohol or drug abuse patient.[facility] Reason for Visit (unrecogniz ed section and content) Reason Comments Refill Request (unrecognized sect ion and content) No Status Records FoundNo Status Records FoundNo Status Records FoundNo Status Records FoundNo Status Records Found INFORMATION SOURCE (unrecogn ized section and content) DATE CREATED AUTHOR 02/27/2023 [facility] DATE CREATED AUTHOR AUTHOR'S ORGANIZ ATION 11/08/2024 [facility] DATE CREATED AUTHOR AUTHOR'S ORGANIZ ATION 01/07/2025 [facility] DATE CREATED AUTHOR AUTHOR'S ORGANIZ ATION 03/09/2025 [facility] DATE CREATED AUTHOR AUTHOR'S ORGANIZ ATION 03/10/2025 [facility] Care Teams (unrecognized sec tion and content) Team Status: Active Member Role Status Dates Dr. Max Orozco MD Family Provider Active KARLA Valadez Primary Care Provider Active Team Status: Inactive Member Role Status Dates KARLA Valadez Primary Care Provider, Referring Pro vider Active KARLA Ross Attending Provider Active Team Status: Inactive Member Role Status Dates KARLA Valadez Primary Care Provider Active KARLA Ross Attending Provider, Referr ing Provider Active Goals (unrecognized section and content) Goals may be documented in a n alternate sectionGoals may be documented in an alternate section FOR RECORDS PERTAINING TO PATIENTS WHO ARE OR HAVE BEEN ENROLLED IN A CHEMICAL DEPENDENCY/SUBSTANCEABUSE PROGRAM, SOME INFORMATION MAY BE OMITTED. This clinical summary was aggregated from multiple sources. Caution should be exercised in using it in the provision of clinical care. This summary normalizes information from multiple sources, and as a consequence, information in this document may materially change the coding, format and clinical context of patient data. In addition, data may be omitted in some cases. CLINICAL DECISIONS SHOULD BE BASED ON THE PRIMARY CLINICAL RECORDS. [employer] [email or web address] provides no warranty or guarantee of the accuracy or completeness of information in this document.
[2025-06-12 16:56] LABS: Hematocrit 44.7 % (40-54); Hemoglobin 15.2 g/dL (13.0-16.5); Immature Granulocytes Count 0.060 X10^3/uL (0.0-0.0); Mean Corp Hgb Conc 34.0 g/dL (32-36); Mean Corpuscular Volume 87.1 fL (80-94); Mean Platelet Vol. 9.6 fl (6.2-12.0); NRBC Flagged by Analyzer 0 % (0-5); Platelet Count 234 K/mm3 (150-450); RBC Distribution Width CV 12.4 % (11.6-14.6); RBC Distribution Width SD 39.5 fl (35.1-43.9); Red Blood Count 5.13 M/mm3 (4.6-6.2); White Blood Count 9.3 K/mm3 (4.4-11.0)
[2025-06-12 17:56] LABS: Anion Gap 10 (5-15); BUN 20 mg/dL (4-19); BUN/Creat Ratio 19.2 RATIO (10-20); Calcium,Total 9.5 mg/dL (7.6-11.0); Carbon Dioxide 27.3 mmol/L (21.0-32.0); Chloride 101 mmol/L (98-108); Glucose 94 mg/dL (70-99); Potassium 4.2 mmol/L (3.3-5.1)
[2025-06-12 17:57] LABS: Free T3 3.6 pg/mL (2.18-3.98)
== END | disposition home or self-care (01) ==
LOC: LAB 16:05
PROVIDERS: Referring Provider Nurse Practitioner Gerontology; Visit Provider Nurse Practitioner Gerontology
DX: R53.83 Other fatigue (principal)
CPT/HCPCS: 36415; 80048; 84439; 84443; 84481; 85025